=== PATIENT | female | born 1990 | race Caucasian/White ===

== ENCOUNTER 2025-09-22 05:46 | Day surgery (SDC) | payer BC, SELFPAY ==
--- NOTE | 2025-09-21 13:19 | HP.PCM.OB_ITS ---
History and Physical Date of Admission: 09/22/25 Expand All Collapse AllPre-Op History and Physical HPI: The patient is a 34 year old female presenting for pre-operative visit.She is scheduled for laparoscopic bilateral salpingectomy, for desires sterilization on 09/22/25. Procedure discussed along with risks, benefits and complications. Otheralternatives discussed for management. Consent form signed? Yes. PAST MEDICAL HISTORYPAST MEDICAL HISTORYDiagnosisDate•NEGATIVE MEDICAL HISTORY PAST SURGICAL HISTORYPAST SURGICAL HISTORYProcedureLateralityDate•APPENDECTOMY 12/30/2024•BX OF BREAST; INCISIONALRight •COLONOSCOPY 03/2025•EYE SURGERY HX •TONSILLECTOMY & ADENOIDECTOMY <AGE 11 CURRENT MEDICATIONSCurrent Outpatient Med icationsMedicationSigDispenseRefill•fexofenadine HCl (ALEENA ALLERGY PO) •magnesium oxide 400 mg magnesium tabTake 400 mg by mouth. •ZURI 28 0.15-0.03 mg per tabTake 1 tablet by mouth every 24 hours. Take active pills continuously, skip the placebo [id number] tablet4•UBRELVY 100 mg tabletTAKE 1 TABLET (100 MG) BY MOUTH IF NEEDED (MIGRAINE). •fexofenadine (ALEENA) 180 mg tabletTake 180 mg by mouth once daily. •Acetaminophen 500 mg cap •Zqbhgot-Jqmqtvpsomjlz-Egpewqhy (EXCEDRIN) 250-250-65 mg per tablet •magnesium oxide 400 mg magnesium cap •multivitamin tabletTake by mouth q 24 HR. No current facility-administered medications for this visit. ALLERGIES: Penicillins PERSONAL HISTORY: [SOCIAL HISTORY] [SOCIAL HISTORY]Social HistoryTobacco Use•Smoking status:Never•Smokeless toba account services coordinator:NeverVaping Use•Vaping status:Never UsedSubstance Use Topics•Alcohol use:Yes Comment: social•Drug use:Never FAMILY HISTORY: FAMILY HISTORYFAMILY HISTORY ProblemRelationAge of Onset•Skin CancerMot her •OsteoporosisMother •HyperlipidemiaFather •Lung CancerMaternal Grandmother •other (scleaderma)Maternal Grandmother •other (throat cancer)Maternal Grandfather •Skin CancerMaternal Grandfather •other (pacemaker)Paternal Grandmother •Heart AttackPaternal Grandfather •Breast CancerMaternal Aunt •other (endometriosis)Maternal Aunt REVIEW OF SYMPTOMS:negative except as noted above PHYSICAL EXAMINATION: VITALS: There were no vitals taken for this visit. GENERAL: The patient is well nourished, well hydrated in no acute distress. , The patient is oriented to time, place, and person.NECK: full range of motionLUNGS: Clear to auscultation bilaterally. no wheezes, rhonchi or ralesHEART: Regular rate and rhythm, Normal heart sounds, and No murmurs or gallopsGENITALIA: WET PREP: IMPRESSION: 34yo that desires sterilization PLAN: laparoscopic bilateral salpingectomy Pt has been counseled on risks/benefits and alternatives of surgery including but not limited to anesthesia, bleeding, infection, injury to pelvic structures including bowel, bladder, ureters and vessels. Pt wishes to proceed with surgery at this time. Pre and post op instructions reviewed I have reviewed and updated past medical and surgical history, medications and allergies Johanny Capone MD
[2025-09-22] VITALS (10 sets, daily range): BP systolic 98–118; BP diastolic 69–80; PULSE 67–98; RESP 16; TEMP 36.8–37.2; O2SAT 99–100; BMI 23.2
--- OUTSIDE RECORDS SUMMARY | 2025-09-22 05:48 | XMS RPT_ITS | CCD ---
Author Organization [facility] Care Team Providers Care Denture Technician Name Role Phone Christophe Marinelli Unavailable Unavailable Unavailable Unavailable Primary Care Provider Unavailabl e Unavailable Primary Care Provider Unavaillizzette e CHRISTOPHE MARINELLI Primary Care Unavailable Unavailable Primary Care Provider Unavaillizzette e Christophe Marinelli DO Primary Care Provider [phone] Debbie Mak MD Primary Care Provider RYAN CORBIN Attending Unavailable ZARRABI, DEBBIE Referring Unavailable ZARRABI, DEBBIE Primary Care Unavailable CHRISTOPHE MARINELLI Primary Care Unavailable KELLY YANG Consulting Unavailable KELLY YANG Attending Unavailable KELLY YANG Admitting Unavailable KELLY YANG Attending Unavailable OBMARYJANEHAUSERCHRISTOPHE L Primary Care Unavailable ZARRABI, DEBBIE Attending Unavailable ZARRABI, DEBBIE Primary Care Unavailable KELLY YANG Attending Unavailable OBCHRISTOPHE MONTALVO Primary Care Unavailable ZARRABI, DEBBIE Attending Unavailable ZARRABI, DEBBIE Primary Care Unavailable ZARRABI, DEBBIE Attending Unavailable ZARRABI, DEBBIE Primary Care Unavailable ZARRABI, DEBBIE Attending Unavailable ZARRABI, DEBBIE Primary Care Unavailable JOHANNY FIORE Attending Unavail able JOHANNY FIORE Attending Unavail able NeJohanny Powell Referring Unavail able Johanny Noland Attending Unavail able Zarrabi, Debbie Primary Care Unavailable Allergies Allergy Classification Reported Allergen(s) Allergy Type Date of Onset Reaction(s) Facility (7 sources) Penicillins; Translations: [Penicillins] Allergy to drug (finding) 0 Unknown [facility] (10 sources) Penicillins Drug Allergy 0 Unknown [facility] (10 sources) [facility] [place]; Translations: [[facility] [place]] Propensity to adverse reactions to drug (disorder) 3 Itching, Other, Runny nose [facility] (7 sources) Penicillins Drug Allergy 0 Unknown [facility] (1 source) Penicillins Drug allergy (disorder) 5 [facility] Repository Medications Current Medications Medication Drug Class(es) Dates Sig (Normalized) Sig (Original) acetaminophen 325 mg oral tablet (13 sources) Start: 12-30-2024 End: 01-04-2025 take 2 tablets by mouth every six hours acetaminophen (Tylenol) 325 mg tablet Indications: Acute appendicitis with localized peritonitis, without perforation, abscess, or gangrene Take 2 tablets (650 mg) by mouth every 6 hours for 20 doses. 12/30/2024 01/04/2025 Active Start: 12-30-2024 End: 12-30-2024 take 975 mg by mouth once as needed for pain 975 mg, oral, Once, On Ai 12/30/24 at 1245, For 1 dose, Preprocedure, Administer with small amount of water preoperatively., If ordered PRN for pain, nurse is permitted to administer this medication for higher pain scores based on patient preference? Yes Acetaminophen 50 0 mg cap Active Ethinyl Estradiol / Levonorgestrel (20 sources) Progestin, Estrogen, Progestin-containing Intrauterine Device Start: 08-03-2025 take 1 tablet by mouth every twenty-four hours ALEXUS 28 0.15-0.03 mg per tab Take 1 tablet by mouth every 24 hours. Take active pills continuously, skip the placebo pills 112 tablet 4 08/03/2025 Active Start: 07-02-2024 End: 08-03-2025 take 1 tablet by mouth every twenty-four hours ALEXUS 28 0.15-0.03 mg per tab Take 1 tablet by mouth every 24 hours. Take active pills continuously, skip the placebo pills 112 tablet 4 07/02/2024 08/03/2025 Discontinued Start: 07-02-2024 take 1 tablet by jessie th every twenty-four hours ALEXUS 28 0.15-0.03 mg per tab Take 1 tablet by mouth every 24 hours. Take active pills continuously, skip the placebo pills 112 tablet 4 07/02/2024 Active Start: 06-21-2024 End: 07-02-2024 take 1 tablet by mouth every twenty-four hours ALEXUS 28 0.15-0.03 mg per tab TAKE 1 TABLET BY MOUTH EVERY 24 HOURS. TAKE ACTIVE PILLS CONTINUOUSLY, SKIP THE PLACEBO PILLS 112 tablet 0 06/21/2024 07/02/2024 Discontinued Start: 06-21-2024 take 1 tablet by jessie th every twenty-four hours ALEXUS 28 0.15-0.03 mg per tab TAKE 1 TABLET BY MOUTH EVERY 24 HOURS. TAKE ACTIVE PILLS CONTINUOUSLY, SKIP THE PLACEBO PILLS 112 tablet 0 06/21/2024 Active Start: 01-16-2024 End: 06-21-2024 take 1 tablet by mouth every twenty-four hours ALEXUS 28 0.15-0.03 mg per tab Take 1 tablet by mouth every 24 hours. Take active pills continuously, skip the placebo pills 112 tablet 1 01/16/2024 06/21/2024 Discontinued Start: 01-16-2024 take 1 tablet by jessie th every twenty-four hours ALEXUS 28 0.15-0.03 mg per tab Take 1 tablet by mouth every 24 hours. Take active pills continuously, skip the placebo pills 112 tablet 1 01/16/2024 Active Start: 07-02-2023 End: 01-16-2024 take 1 tablet by mouth every twenty-four hours ALEXUS 28 0.15-0.03 mg per tab Take 1 tablet by mouth every 24 hours. Take active pills continuously, skip the placebo pills 112 tablet 1 07/02/2023 01/16/2024 Discontinued Start: 07-02-2023 take 1 tablet by jessie th every twenty-four hours ALEXUS 28 0.15-0.03 mg per tab Take 1 tablet by mouth every 24 hours. Take active pills continuously, skip the placebo pills 112 tablet 1 07/02/2023 Active Start: 02-03-2023 End: 07-02-2023 take 1 tablet by mouth every twenty-four hours ALEXUS 28 0.15-0.03 mg per tab Take 1 tablet by mouth q 24 HR. Take active pills continuously, skip the placebo pills 112 tablet 1 02/03/2023 07/02/2023 Discontinued Start: 02-03-2023 take 1 tablet by jessie th every twenty-four hours ALEXUS 28 0.15-0.03 mg per tab Take 1 tablet by mouth q 24 HR. Take active pills continuously, skip the placebo pills 112 tablet 1 02/03/2023 Active Start: 12-12-2022 End: 02-03-2023 take 1 tablet by mouth every twenty-four hours ALEXUS 28 0.15-0.03 mg per tab Take 1 tablet by mouth q 24 HR. Take active pills continuously, skip the placebo pills 112 tablet 0 12/12/2022 02/03/2023 Discontinued Start: 12-12-2022 take 1 tablet by jessie th every twenty-four hours ALEXUS 28 0.15-0.03 mg per tab Take 1 tablet by mouth q 24 HR. Take active pills continuously, skip the placebo pills 112 tablet 0 12/12/2022 Active Start: 06-25-2022 End: 12-12-2022 levonorgestrel-ethinyl estra diol (ALEXUS 28) 0.15-0.03 mg per tab Take by mouth q 24 HR. 0 06/25/2022 12/12/2022 Discontinued Start: 06-25-2022 levonorgestrel -ethinyl estradiol (ALEXUS 28) 0.15-0.03 mg per tab Take by mouth q 24 HR. 0 06/25/2022 Active take 1 tablet by mouth once bhargav y Burgin 28 0.15-0.03 mg tablet TAKE 1 TABLET BY MOUTH DAILY TAKE ACTIVE PILLS CONTINUOUSLY, SKIP THE PLACEBO PILLS Active Comment on above: Take by mouth q 24 H R. Take 1 tablet by jessie th q 24 HR. Take active pills continuously, skip the placebo pills Take 1 tablet by jessie th every 24 hours. Take active pills continuously, skip the placebo pills fexofenadine hydrochloride 180 mg oral tablet (14 sources) Histamine-1 Receptor Antagonist take 1 tablet by mouth once daily fexofenadine (Shireen) 180 mg tablet Take 1 tablet (180 mg) by mouth once daily. Active fexofenadine HCl (SIHREEN ALLERGY PO) Active Comment on above: Take 180 mg by mouth once daily. hydrocortisone 25 mg/ml topical cream (5 sources) Corticosteroid Start: End: hydrocortisone (Anusol-HC) 2.5 % rectal cream Indications: Constipation, unspecified constipation type Insert into the rectum 4 times a day as needed for hemorrhoids (rectal discomfort). Apply to affected areas 30 g 02/02/2025 02/02/2026 Active ibuprofen 600 mg oral tablet (3 sources) Nonsteroidal Anti-inflammatory Drug Start: End: take 1 tablet by mouth every six hours ibuprofen 600 mg tablet Indications: Acute appendicitis with localized peritonitis, without perforation, abscess, or gangrene Take 1 tablet (600 mg) by mouth every 6 hours for 20 doses. 12/30/2024 01/04/2025 Active End: 12-30-2024 take 1 tablet by mouth every six hours as needed ibuprofen 200 mg tablet Take 1 tablet (200 mg) by mouth every 6 hours if needed for mild pain (1 - 3). 12/30/2024 Discontinued (Stop Taking at Discharge) labetalol hydrochloride 5 mg/ml injectable solution (1 source) beta-Adrenergic Roscoe Start: 12-30-2024 5 mg, intravenous, Administer over 1 Minutes, Once as needed, systolic blood pressure greater than 180 mmHg, dystolic blood pressure greater than 100 mmHg and heart rate greater than 60 BPM, Starting on Ai 12/30/24 at 1646, For 1 dose, Recovery (only) magnesium oxide 400 mg oral tablet (19 sources) Start: 06-25-2022 take 1 tablet by mouth once daily in the evening magnesium oxide (Mag-Ox) 400 mg tablet Take 1 tablet (400 mg) by mouth once daily in the evening. 06/25/2022 Active magnesium oxide 400 mg magnesium cap Active 1 ml morphine sulfate 4 mg/ml prefilled syringe (2 sources) Opioid Agonist Start: 12-30-2024 2 mg, intraven ous, Every 5 min PRN, pain moderate (4-6), first line, Starting on Ai 12/30/24 at 1646, Recovery (only), Max total of 20 mg regardless of dose. Start: 12-30-2024 4 mg, intraven ous, Every 5 min PRN, pain severe (7-10), first line, Starting on Ai 12/30/24 at 1646, Recovery (only), Max total of 20 mg regardless of dose. multivitamin tablet (18 sources) Start: 06-25-2022 multivitamin t ablet Take by mouth q 24 HR. 06/25/2022 Active Start: 06-25-2022 take 1 tablet by jessie th once daily in the morning multivitamin tablet Take 1 tablet by mouth once daily in the morning. 06/25/2022 Active Start: 06-25-2022 multivitamin t ablet Take by mouth q 24 HR. 0 06/25/2022 Active Comment on above: Take by mouth q 24 H R. ondansetron ODT (Zofran-ODT) disintegrating tablet 4 mg (1 source) Start: take 1 tablet by mouth every eight hours as needed ondansetron ODT (Zofran-ODT) disintegrating tablet 4 mg oxyCODONE hydrochloride 5 mg oral tablet (2 sources) Opioid Agonist Start: take 1 tablet by mouth every four hours as needed 5 mg, oral, Every 4 hours PRN, pain mild (1-3), first line, Starting on Ai 12/30/24 at 1646, Recovery (only), When able to take oral medications., If ordered PRN for pain, nurse is permitted to administer this medication for higher pain scores based on patient preference? Yes Start: 12-30-2024 End: 01-06-2025 take 1 tablet by mouth every six hours in the evening for pain oxyCODONE (Roxicodone) 5 mg immediate release tablet Indications: Acute appendicitis with localized peritonitis, without perforation, abscess, or gangrene Take 1 tablet (5 mg) by mouth every 6 hours if needed for severe pain (7 - 10) for up to 12 doses. 12 tablet 12/30/2024 4:56 PM EST 12/30/2024 01/06/2025 Active piperacillin 4000 mg / tazobactam 500 mg injection (2 sources) Penicillin-class Antibacterial, beta Lactamase Inhibitor Start: 12-30-2024 take 4.5 g intravenously every six hours 4.5 g, intravenous, Administer over 0.5 Hours, Every 6 hours, First dose on Fri12/30/24 at 0600, premix bag, Dosing of this medication varies based on severity of illness. Does this patient have sepsis or concern for sepsis (probable or documented infection plus systemic manifestations of infection)? No, Suspected Indication (Select all that apply): Abdominal Infection, Type of Therapy: Definitive, No Cultures, Type of infection: Community-Acquired, Indications: Abdominal Infection Start: 12-29-2024 End: 12-29-2024 4.5 g, intravenous, Administ er over 0.5 Hours, Once, On Fri12/29/24 at 2315, For 1 dose, premix bag, Dosing of this medication varies based on severity of illness. Does this patient have sepsis or concern for sepsis (probable or documented infection plus systemic manifestations of infection)? No, Suspected Indication (Select all that apply): Abdominal Infection, Type of Therapy: Empiric, Type of infection: Community-Acquired, Indications: Abdominal Infection psyllium 400 mg oral capsule (1 source) take 1 capsule by mouth four times daily psyllium (Metamucil) 0.4 gram capsule Take 1 capsule by mouth 4 times a day. Active ubrogepant 100 mg oral tablet (12 sources) Start: 02-02-2025 End: 02-02-2025 take 1 tablet by mouth twice daily as needed ubrogepant (Ubrelvy) 100 mg tablet tablet Indications: Chronic migraine without aura without status migrainosus, not intractable Take 1 tablet (100 mg) by mouth 2 times a day as needed (migraine). 16 tablet 11 02/02/2025 Active Start: 12-14-2024 End: 02-02-2025 take 1 tablet by mouth once ubrogepant (Ubrelvy) 100 m g tablet tablet Indications: Chronic migraine with aura without status migrainosus, not intractable Take 1 tablet (100 mg) by mouth 1 time if needed (migraine) for up to 64 doses. 16 tablet 3 12/14/2024 02/02/2025 Discontinued (Reorder) Completed/Discontinued Medications Medication Drug Class(es) Dates Sig (Normalized) Sig (Original) acetaminophen 250 mg / aspirin 250 mg / caffeine 65 mg oral tablet (17 sources) Platelet Aggregation Inhibitor, Nonsteroidal Anti-inflammatory Drug, Central Nervous System Stimulant, Methylxanthine End: 05-03-2025 take 1 tablet by mouth every six hours as needed aspirin-acetamino phen-caffeine (Excedrin Migraine) 250-250-65 mg tablet Take 1 tablet by mouth every 6 hours if needed for headaches. 05/03/2025 Discontinued (Therapy completed) Aspirin-Acetamin ophen-Caffeine (EXCEDRIN) 250-250-65 mg per tablet Active amitriptyline hydrochloride 50 mg oral tablet (3 sources) Tricyclic Antidepressant Start: 11-25-2024 End: 11-25-2025 take 1 tablet by mouth once daily at bedtime amitriptyline (Elavil) 50 mg tablet Indications: Migraine without aura and without status migrainosus, not intractable Take 1 tablet (50 mg) by mouth once daily at bedtime. 30 tablet 11 11/25/2024 02/02/2025 Discontinued (Therapy completed) atogepant (Qulipta) 60 mg tablet tablet (1 source) Start: 12-15-2024 End: 12-30-2024 take 1 tablet by mouth once daily atogepant (Qulipta) 60 mg tablet tablet Indications: Chronic migraine without aura without status migrainosus, not intractable Take 1 tablet (60 mg) by mouth once daily. 30 tablet 2 12/15/2024 12/30/2024 Discontinued (Stop Taking at Discharge) calcium chloride 0.0014 meq/ml / potassium chloride 0.004 meq/ml / sodium chloride 0.103 meq/ml / sodium lactate 0.028 meq/ml injectable solution (3 sources) Start: 04-07-2025 End: 04-08-2025 take 20 mL intravenously every hour 20 mL/hr, intravenous, Continuous, Starting on [facility] 04/07/25 at 0745, For 1 day, Preprocedure Start: 12-29-2024 End: 12-31-2024 take 100 mL intravenously every hour 100 mL/hr, intravenous, Continuous, Starting on Ai 12/30/24 at 1715, For 1 day, Recovery (only) cholecalciferol 1.25 mg oral capsule (12 sources) Vitamin D Start: 06-26-2022 End: 08-03-2025 cholecalciferol, Vitamin D3, (VITAMIN D3) 1,250 mcg (50,000 unit) cap capsule 06/26/2022 08/03/2025 Discontinued Start: 06-26-2022 take 1 capsule by [facility] every week Vitamin D3 1.25 MG (82170 UT) Oral Capsule TAKE 1 CAPSULE BY MOUTH ONCE A WEEK Quantity: 12 Refills: 3 Ordered: 26-Jun-2022 Christophe Marinelli DO Start : 26-Jun-2022 Active 1 ml dexamethasone phosphate 10 mg/ml injection (1 source) Corticosteroid Start: 12-30-2024 End: 12-30-2024 8 mg, intravenous, Once, On Fri12/30/24 at 1245, For 1 dose, Preprocedure 2 ml famotidine 10 mg/ml injection (2 sources) Histamine-2 Receptor Antagonist Start: 12-30-2024 End: 12-30-2024 Starting on Fri12/30/24 at 0849, For 1 dose, Created by cabinet override Start: 12-29-2024 famotidine (Pe pcid) tablet 20 mg 1 ml fentaNYL 0.05 mg/ml injection (1 source) Opioid Agonist Start: 04-07-2025 End: 04-07-2025 intravenous, As needed, Starting on Fri04/07/25 at 0808, Intraprocedure FIBER, DEXTRIN, ORAL (2 sources) End: 06-27-2025 FIBER, DEXTRIN, ORAL Take by mouth 2 times a day. 06/27/2025 Discontinued (Med List Cleanup) FIBER, DEXTRIN, ORAL Take by mouth 2 times a day. Active 1.5 ml fremanezumab-vfrm 150 mg/ml auto-injector (1 source) Start: 12-14-2024 End: 12-30-2024 fremanezumab (Ajovy Autoinjector) 225 mg/1.5 mL auto-injector Indications: Chronic migraine without aura without status migrainosus, not intractable , Chronic migraine with aura without status migrainosus, not intractable Inject 1 Pen (225 mg) under the skin every 28 (twenty-eight) days. 1.5 mL 1 12/14/2024 12/30/2024 Discontinued (Stop Taking at Discharge) iohexol (OMNIPaque) 350 mg iodine/mL solution 68 mL (1 source) Start: 12-29-2024 End: 12-29-2024 68 mL, intravenous, Once in imaging, Starting on Fri12/29/24 at 2217, For 1 dose loratadine 10 mg oral tablet (13 sources) Start: 06-25-2022 take 1 tablet by mouth once daily Loratadine 10 MG Oral Tablet TAKE 1 TABLET BY MOUTH EVERY DAY Quantity: 90 Refills: 3 Ordered: 25-Jun-2022 Christophe Marinelli DO Start : 25-Jun-2022 Active End: 08-03-2025 loratadine 10 mg cap 025 Discontinued Magnesium (2 sources) Start: 06-25-2022 take 1 tablet by mouth in the morning Magnesium 400 MG Oral Tablet TAKE 1 TABLET IN THE MORNING Quantity: 0 Refills: 0 Ordered: 25-Jun-2022 Christophe Marinelli DO Start : 25-Jun-2022 Active 2 ml midazolam 5 mg/ml injection (2 sources) Benzodiazepine Start: 04-07-2025 End: 04-07-2025 intravenous, Administer over 5 Minutes, As needed, Starting on Ai 04/07/25 at 0810, Intraprocedure Multivitamin Oral Tablet (2 sources) Start: 06-25-2022 take 1 tablet by mouth once daily Multivitamin Oral Tablet TAKE 1 TABLET DAILY. Quantity: 90 Refills: 3 Ordered: 25-Jun-2022 Christophe Marinelli DO Start : 25-Jun-2022 Active 2 ml ondansetron 2 mg/ml injection (2 sources) Serotonin-3 Receptor Antagonist Start: 12-30-2024 End: 12-30-2024 4 mg, intravenous, Once as needed, nausea/vomiting, first line, Starting on Ai 12/30/24 at 1646, For 1 dose, Recovery (only), When administering via IV Push, administer over 3-5 minutes. Burgin-28 0.15-30 MG-MCG Oral Tablet (2 sources) Start: 06-25-2022 take 1 tablet by mouth once daily Burgin-28 0.15-30 MG-MCG Oral Tablet TAKE 1 TABLET DAILY. Quantity: 0 Refills: 0 Ordered: 25-Jun-2022 Christophe Marinelli DO Start : 25-Jun-2022 Active promethazine (Phenergan) 6.25 mg in sodium chloride 0.9% 50 mL IV (1 source) Start: 12-30-2024 End: 12-30-2024 6.25 mg, intravenous, Administer over 15 Minutes, Once as needed, Nausea/vomiting, second line, Starting on Fri12/30/24 at 1646, For 1 dose, Recovery (only) propranolol hydrochloride 10 mg oral tablet (1 source) beta-Adrenergic Roscoe Start: 12-06-2024 End: 12-30-2024 take 1 tablet by mouth twice daily propranolol (Inderal) 10 mg tablet Indications: Chronic migraine without aura without status migrainosus, not intractable Take 1 tablet (10 mg) by mouth 2 times a day. 60 tablet 1 12/06/2024 12/30/2024 Discontinued (Stop Taking at Discharge) rimegepant 75 mg disintegrating oral tablet (4 sources) Start: 10-21-2023 End: 02-02-2025 take 1 tablet by mouth every other day rimegepant (Nurtec ODT) 75 mg tablet,disintegrati ng Indications: Chronic migraine without aura without status migrainosus, not intractable Dissolve 1 tablet (75 mg) in the mouth every other day. 8 tablet 3 12/15/2024 02/02/2025 Discontinued (Cost of medication) 5 ml sodium chloride 9 mg/ml injection (2 sources) Start: 12-30-2024 End: 12-30-2024 Starting on Fri12/30/24 at 0849, For 1 dose, Created by cabinet override Start: 12-29-2024 End: 12-29-2024 1,000 mL, intravenous, at 99 9 mL/hr, Administer over 1 Hours, Once, On Fri12/29/24 at 2045, For 1 dose vitamin b6 100 mg oral table t (10 sources) Start: 06-26-2024 End: 08-03-2025 pyridoxine, vitamin B6, (VIT KEY B-6) 100 mg tablet 06/26/2024 08/03/2025 Discontinued Problems Active Problems Problem Classification Problem Date Documented Da te Episodic/Chronic Abdominal pain (2 sources) Pain in female pelvis; Translations: [Pelvic and perineal pain] Episodic Contraceptive and procreative management (8 sources) Patient encounter status; Translations: [Unspecified contraceptive management] Onset: 09-14-2025 Episodic Diseases of white blood cells (3 sources) Leukocytosis; Translations: [Elevated white blood cell count, unspecified] Onset: 02-02-2025 02-02-2025 Chronic Gastrointestinal hemorrhage (10 sources) Hematochezia; Translations: [Melena] Onset: 02-28-2025 02-28-2025 Episodic Headache; including migraine (12 sources) Migraine; Translations: [Migraine, unspecified, without mention of intractable migraine without mention of status migrainosus] Onset: 06-24-2024 06-24-2024 Chronic Hemorrhoids (3 sources) Anal skin tag; Translations: [Residual hemorrhoidal skin tags] Onset: 06-28-2025 06-28-2025 Episodic Immunizations and screening for infectious disease (2 sources) Requires vaccination; Translations: [Encounter for immunization] Onset: 08-03-2025 08-03-2025 Episodic Malaise and fatigue (3 sources) Fatigue; Translations: [Chronic fatigue, unspecified] Onset: 06-28-2025 06-28-2025 Chronic Other and unspecified benign neoplasm (3 sources) Hyperplastic polyp of intestine; Translations: [Polyp of colon] Onset: 05-03-2025 05-03-2025 Episodic Other female genital disorders (1 source) Dyspareunia; Translations: [Other specified dyspareunia] 07-02-2023 Chronic Other female genital disorders (1 source) Finding of pelvis; Translations: [Unspecified condition associated with female genital organs and menstrual cycle] Episodic Other gastrointestinal disorders (8 sources) Constipation; Translations: [Constipation, unspecified] Onset: 02-02-2025 02-02-2025 Episodic Other gastrointestinal disorders (2 sources) Other constipation; Translations: [Other constipation] Onset: 06-28-2025 Episodic Other upper respiratory disease (9 sources) Seasonal allergy; Translations: [Allergic rhinitis, cause unspecified] Onset: 06-24-2023 06-24-2023 Chronic Residual codes; unclassified (2 sources) History finding; Translations: [Other specified conditions influencing health status] Episodic Unclassified (1 source) Chronic migraine with aura, not intractable, without status migrainosus; Translations: [Chronic migraine with aura, not intractable, without status migrainosus] Onset: 02-02-2025 Unclassified (2 sources) Post-op; Translations: [Post-op] Onset: 01-14-2025 Past or Other Problems Problem Classification Problem Date Documented Da te Episodic/Chronic Appendicitis and other appendiceal conditions (11 sources) Acute appendicitis with localized peritonitis; Translations: [Acute appendicitis with localized peritonitis, without perforation or gangrene] Onset: 12-29-2024 Resolved: 02-02-2025 12-30-2024 Episodic Fluid and electrolyte disorders (3 sources) Hyponatremia; Translations: [Hypo-osmolality and hyponatremia] Onset: 02-02-2025 02-02-2025 Episodic Nutritional deficiencies (11 sources) Vitamin D deficiency; Translations: [Unspecified vitamin D deficiency] Onset: 06-24-2023 Resolved: 06-27-2025 Chronic Other and unspecified benign neoplasm (1 source) Polyp of colon; Translations: [Benign neoplasm of colon] Onset: 05-03-2025 05-03-2025 Episodic Other gastrointestinal disorders (4 sources) Constipation, unspecified; Translations: [Constipation, unspecified] Onset: 02-02-2025 Episodic Other gastrointestinal disorders (3 sources) Chronic constipation; Translations: [Other constipation] Onset: 02-02-2025 06-28-2025 Episodic Other screening for suspected conditions (not mental disorders or infectious disease) (3 sources) Cancer cervix screening status; Translations: [Encounter for screening for malignant neoplasm of cervix] Onset: 02-02-2025 Episodic Unclassified (7 sources) Onset: 06-24-2024 Resolved: 02-28-2025 06-24-2024 Unclassified (1 source) Chronic migraine with aura, not intractable, without status migrainosus; Translations: [Chronic migraine with aura, not intractable, without status migrainosus] Onset: 02-02-2025 Results Test Name Value Interpretation Reference Range Facility H AND P Exam - OB/GYN 11-0 H&P Exam - FURNACE FITTER [facility] Medical Records Department [address] [place] [address] H P Exam - FURNACE FITTER 09/21/25 1319 MR#: [id number] Acct: [id number] Name: RICHCHRISTOPHE WELLERLUIS ALBERTO Rep #: [id number] : 1990 34 From: Johanny Noland MD PCP: DEBBIE MAK Status:PRE SDC Location: SDC History and Physical Date of Admission: 09/22/25 Expand All???Collapse AllPre-Op History and Physical???HPI: The patient is a 34 year old female presenting for pre-operative visit.She is scheduled for laparoscopic bilateral salpingectomy, for desires sterilization on 09/22/25. Procedure discussed along with risks, benefits and complications. Otheralternatives discussed for management. Consent form signed? Yes. ?PAST MEDICAL HISTORYPAST MEDICAL HISTORYDiagnosisDate?? ?NEGATIVE MEDICAL HISTORY?PAST SURGICAL HISTORYPAST SURGICAL HISTORYProcedureLatera lityDate???APPENDECTOM Y???12/30/2024???BX OF BREAST; INCISIONALRight?C OLONOSCOPY???03/2025?? ?EYE SURGERY HX?TONSILLECTO MY ADENOIDECTOMY 12?CURRE NT MEDICATIONSCurrent Outpatient MedicationsMedicationS igDispenseRefill???fex ofenadine HCl (SHIREEN ALLERGY PO)?magnesi um oxide 400 mg magnesium tabTake 400 mg by mouth.?ALEXUS 28 0.15- 0.03 mg per tabTake 1 tablet by mouth every 24 hours. Take active pills continuously, skip the placebo [id number] tablet4???UBRELVY 100 mg tabletTAKE 1 TABLET (100 MG) BY MOUTH IF NEEDED (MIGRAINE).?fe xofenadine (SHIREEN) 180 mg tabletTake 180 mg by mouth once daily.?Acetami nophen 500 mg cap?Aspirin -Acetaminophen-Caffein e (EXCEDRIN) 250-250-65 mg per tablet?magn esium oxide 400 mg magnesium cap?multivi tamin tabletTake by mouth q 24 HR.?No current facility-administered medications for this visit.?ALLERGIES: Penicillins???PERSONAL HISTORY: [SOCIAL HISTORY] [SOCIAL HISTORY]Social HistoryTobacco Use???Smoking status:Never???Smokele ss tobacco:NeverVaping Use???Vaping status:Never UsedSubstance Use Topics???Alcohol use:Yes?Comment: social???Drug use:Never???FAMILY HISTORY: FAMILY HISTORYFAMILY HISTORY ProblemRelationAge of Onset???Skin CancerMother?Oste oporosisMother?Hy perlipidemiaFather?Lung CancerMaternal Grandmother?other (scleaderma)Maternal Grandmother?other (throat cancer)Maternal Grandfather?Skin CancerMaternal Grandfather?other (pacemaker)Paternal Grandmother?Heart AttackPaternal Grandfather?Breas t CancerMaternal Aunt?other (endometriosis)Materna l Aunt?REVIEW OF SYMPTOMS:negative except as noted above PHYSICAL EXAMINATION:???VITALS: There were no vitals taken for this visit.???GENERAL: The patient is well nourished, well hydrated in no acute distress. , The patient is oriented to time, place, and person.NECK: full range of motionLUNGS: Clear to auscultation bilaterally. no wheezes, rhonchi or ralesHEART: Regular rate and rhythm, Normal heart sounds, and No murmurs or gallopsGENITALIA: WET PREP: ???IMPRESSION: 34yo that desires sterilization ???PLAN: laparoscopic bilateral salpingectomy ???Pt has been counseled on risks/benefits and alternatives of surgery including but not limited to anesthesia, bleeding, infection, injury to pelvic structures including bowel, bladder, ureters and vessels. Pt wishes to proceed with surgery at this time.???Pre and post op instructions reviewed?I have reviewed and updated past medical and surgical history, medications and allergies Johanny Gupta MD ???8:32 AM 09/21/25 1319 Cosigner Signature (if applicable): CC: Dr Johanny Noland MD; DEBBIE MAK Signed [facility] 09-14-2025 [facility] Office Visit (OBGYWM ) CHRISTOPHE RICH ([id number]) 1990 F Date Time Provider Department 09/14/25 8:10 AM JOHANNY FIORE OBGYWM During your visit today, we recorded the following information about you: Blood pressure Weight 110/62 68 kg Johanny Fiore MD 09/14/2025 8:32 AM Signed Pre-Op History and Physical HPI: The patient is a 34 year old female presenting for pre-operative visit. She is scheduled for laparoscopic bilateral salpingectomy, for desires sterilization on 09/22/25. Procedure discussed along with risks, benefits and complications. Other alternatives discussed for management. Consent form signed? Yes. PAST MEDICAL HISTORY Diagnosis Date NEGATIVE MEDICAL HISTORY PAST SURGICAL HISTORY Procedure Laterality Date APPENDECTOMY 12/30/2024 BX OF BREAST; INCISIONAL Right COLONOSCOPY 03/2025 EYE SURGERY HX TONSILLECTOMY AND ADENOIDECTOMY Current Outpatient Medications Medication Sig Dispense Refill fexofenadine HCl (SHIREEN ALLERGY PO) magnesium oxide 400 mg magnesium tab Take 400 mg by mouth. ALEXUS 28 0.15-0.03 mg per tab Take 1 tablet by mouth every 24 hours. Take active pills continuously, skip the placebo pills 112 tablet 4 UBRELVY 100 mg tablet TAKE 1 TABLET (100 MG) BY MOUTH IF NEEDED (MIGRAINE). fexofenadine (SHIREEN) 180 mg tablet Take 180 mg by mouth once daily. Acetaminophen 500 mg cap Aspirin-Acetaminophen- Caffeine (EXCEDRIN) 250-250-65 mg per tablet magnesium oxide 400 mg magnesium cap multivitamin tablet Take by mouth q 24 HR. No current facility-administered medications for this visit. ALLERGIES: Penicillins PERSONAL HISTORY: SOCIAL HISTORY[1] FAMILY HISTORY: FAMILY HISTORY Problem Relation Age of Onset Skin Cancer Mother Osteoporosis Mother Hyperlipidemia Father Lung Cancer Maternal Grandmother other (scleaderma) Maternal Grandmother other (throat cancer) Maternal Grandfather Skin Cancer Maternal Grandfather other (pacemaker) Paternal Grandmother Heart Attack Paternal Grandfather Breast Cancer Maternal Aunt other (endometriosis) Maternal Aunt REVIEW OF SYMPTOMS: negative except as noted above PHYSICAL EXAMINATION: VITALS: There were no vitals taken for this visit. GENERAL: The patient is well nourished, well hydrated in no acute distress. , The patient is oriented to time, place, and person. NECK: full range of motion LUNGS: Clear to auscultation bilaterally. no wheezes, rhonchi or rales HEART: Regular rate and rhythm, Normal heart sounds, and No murmurs or gallops GENITALIA: WET PREP: IMPRESSION: 34yo that desires sterilization PLAN: laparoscopic bilateral salpingectomy Pt has been counseled on risks/benefits and alternatives of surgery including but not limited to anesthesia, bleeding, infection, injury to pelvic structures including bowel, bladder, ureters and vessels. Pt wishes to proceed with surgery at this time. Pre and post op instructions reviewed I have reviewed and updated past medical and surgical history, medications and allergies Johanny Gupta MD [1] Social History Tobacco Use Smoking status: Never Smokeless tobacco: Never Vaping Use Vaping status: Never Used Substance Use Topics Alcohol use: Yes Comment: social Drug use: Never Allergies As of Date: 09/14/2025 Noted Allergy Reaction PENICILLINS 07/02/2022 16 - Unknown Date Reviewed: 09/14/2025 Reviewed by: Nikunj Ji MA - Fully Assessed Reason for Visit: Pre-Op Visit [1235] Primary Visit Diagnosis:Consultation for sterilization [Z30.09] Other Visit Diagnosis:Pre-op exam [Z01.818] Prescriptions as of 09/14/2025 - fexofenadine HCl (SHIREEN ALLERGY PO) - magnesium oxide 400 mg magnesium tab Take 400 mg by mouth. - ALEXUS 28 0.15-0.03 mg per tab Take 1 tablet by mouth every 24 hours. Take active pills continuously, skip the placebo pills - UBRELVY 100 mg tablet TAKE 1 TABLET (100 MG) BY MOUTH IF NEEDED (MIGRAINE). - fexofenadine (SHIREEN) 180 mg tablet Take 180 mg by mouth once daily. - magnesium oxide 400 mg magnesium cap - multivitamin tablet Take by mouth q 24 HR. Problem List As Of Date: 09/14/2025 (None) Medications Discontinued During This Encounter Prescriptions - Aspirin-Acetaminophen- Caffeine (EXCEDRIN) 250-250-65 mg per tablet (Discontinued) - Acetaminophen 500 mg cap (Discontinued) Encounter Status:[facility]A [facility] 09[facility] CHRISTOP[facility] ([id number]) 1990 F Date Time Provider Department 09/14/25 JOHANNY FIORE OBGYWM During your visit today, we recorded the following information about you: Marina Bishop RN 09/14/2025 8:34 AM Addendum Filled out [facility] packet and placed in Dr. Gupta's in box to get signature. Kate Rosa MA Received [facility] paperwork for after her surgery on 09/22/25. Placed in [facility] mailbox. JIN Luz Tara, RN 09/14/2025 5:02 PM Signed Faxed. Leo Ramey RN Allergies As of Date: 09/14/2025 Noted Allergy Reaction PENICILLINS 07/02/2022 16 - Unknown Date Reviewed: 09/14/2025 Reviewed by: Nikunj Ji MA - Fully Assessed Reason for Visit: [facility] Paperwork [4185] Prescriptions as of 09/14/2025 - fexofenadine HCl (SHIREEN ALLERGY PO) - magnesium oxide 400 mg magnesium tab Take 400 mg by mouth. - ALEXUS 28 0.15-0.03 mg per tab Take 1 tablet by mouth every 24 hours. Take active pills continuously, skip the placebo pills - UBRELVY 100 mg tablet TAKE 1 TABLET (100 MG) BY MOUTH IF NEEDED (MIGRAINE). - fexofenadine (SHIREEN) 180 mg tablet Take 180 mg by mouth once daily. - magnesium oxide 400 mg magnesium cap - multivitamin tablet Take by mouth q 24 HR. Problem List As Of Date: 09/14/2025 (None) Encounter Status:Closed by LEO RAMEY on 09/14/25 Normal [facility] HISTORY PHYSICALon HISTORY PHYSICAL HNO ID: [id number] Author: JOHANNY FIORE MD Service: ? Author Type: Physician Type: H&P Filed: 09/14/2025 08:32 Note Text: Pre-Op History and Physical HPI: The patient is a 34 year old female presenting for pre-operative visit. She is scheduled for laparoscopic bilateral salpingectomy, for desires sterilization on 09/22/25. Procedure discussed along with risks, benefits and complications. Other alternatives discussed for management. Consent form signed? Yes. PAST MEDICAL HISTORY Diagnosis Date NEGATIVE MEDICAL HISTORY PAST SURGICAL HISTORY Procedure Laterality Date APPENDECTOMY 12/30/2024 BX OF BREAST; INCISIONAL Right COLONOSCOPY 03/2025 EYE SURGERY HX TONSILLECTOMY AND ADENOIDECTOMY Current Outpatient Medications Medication Sig Dispense Refill fexofenadine HCl (SHIREEN ALLERGY PO) magnesium oxide 400 mg magnesium tab Take 400 mg by mouth. ALEXUS 28 0.15-0.03 mg per tab Take 1 tablet by mouth every 24 hours. Take active pills continuously, skip the placebo pills 112 tablet 4 UBRELVY 100 mg tablet TAKE 1 TABLET (100 MG) BY MOUTH IF NEEDED (MIGRAINE). fexofenadine (SHIREEN) 180 mg tablet Take 180 mg by mouth once daily. Acetaminophen 500 mg cap Aspirin-Acetaminophen- Caffeine (EXCEDRIN) 250-250-65 mg per tablet magnesium oxide 400 mg magnesium cap multivitamin tablet Take by mouth q 24 HR. No current facility-administered medications for this visit. ALLERGIES: Penicillins PERSONAL HISTORY: SOCIAL HISTORY[1] FAMILY HISTORY: FAMILY HISTORY Problem Relation Age of Onset Skin Cancer Mother Osteoporosis Mother Hyperlipidemia Father Lung Cancer Maternal Grandmother other (scleaderma) Maternal Grandmother other (throat cancer) Maternal Grandfather Skin Cancer Maternal Grandfather other (pacemaker) Paternal Grandmother Heart Attack Paternal Grandfather Breast Cancer Maternal Aunt other (endometriosis) Maternal Aunt REVIEW OF SYMPTOMS: negative except as noted above PHYSICAL EXAMINATION: VITALS: There were no vitals taken for this visit. GENERAL: The patient is well nourished, well hydrated in no acute distress. , The patient is oriented to time, place, and person. NECK: full range of motion LUNGS: Clear to auscultation bilaterally. no wheezes, rhonchi or rales HEART: Regular rate and rhythm, Normal heart sounds, and No murmurs or gallops GENITALIA: WET PREP: IMPRESSION: 34yo that desires sterilization PLAN: laparoscopic bilateral salpingectomy Pt has been counseled on risks/benefits and alternatives of surgery including but not limited to anesthesia, bleeding, infection, injury to pelvic structures including bowel, bladder, ureters and vessels. Pt wishes to proceed with surgery at this time. Pre and post op instructions reviewed I have reviewed and updated past medical and surgical history, medications and allergies Johanny Gupta MD [1] Social History Tobacco Use Smoking status: Never Smokeless tobacco: Never Vaping Use Vaping status: Never Used Substance Use Topics Alcohol use: Yes Comment: social Drug use: Never Normal [facility] CNOVon 08-03-2025 CNOV Office Visit (OBGYWM ) RICH,MEGAN P ([id number]) 1990 F Date Time Provider Department 08/03/25 11:20 AM JOHANNY FIORE OBGYWM During your visit today, we recorded the following information about you: Blood pressure Weight Height 110/70 68.5 kg 1.715 m Johanny Fiore MD 08/03/2025 12:00 PM Signed Supervisor Assembling offered: Patient declines. Christophe is a 34 year old who presents for an annual gynecologic exam without complaints. 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 LMP: LMP Unknown, Drug Induced Amenorrhea Age at Menarche: 11 Age at First : Age at Menopause: Keyboard Operator History Comments: Sexual Activity: Yes; Male Contraception: Pill PAST MEDICAL HISTORY Diagnosis Date NEGATIVE MEDICAL HISTORY PAST SURGICAL HISTORY Procedure Laterality Date APPENDECTOMY 12/30/2024 BX OF BREAST; INCISIONAL Right COLONOSCOPY 03/2025 EYE SURGERY HX TONSILLECTOMY AND ADENOIDECTOMY FAMILY HISTORY Problem Relation Age of Onset Skin Cancer Mother Osteoporosis Mother Hyperlipidemia Father Lung Cancer Maternal Grandmother other (scleaderma) Maternal Grandmother other (throat cancer) Maternal Grandfather Skin Cancer Maternal Grandfather other (pacemaker) Paternal Grandmother Heart Attack Paternal Grandfather Breast Cancer Maternal Aunt other (endometriosis) Maternal Aunt SOCIAL HISTORY Social History Tobacco Use Smoking status: Never Smokeless tobacco: Never Vaping Use Vaping status: Never Used Substance Use Topics Alcohol use: Yes Comment: social Drug use: Never REVIEW OF SYSTEMS Abdomen: No abdominal pain, nausea, vomiting, diarrhea, or constipation. No bloating, early satiety, indigestion, or increased flatulence. Bladder: No dysuria, gross hematuria, urinary frequency, urinary urgency, or incontinence. Breast: No breast lumps, nipple d/c, overlying skin changes, redness or skin retraction. Allergies and current medication updated:Yes SENSITIVE EXAM: The sensitive examination was discussed with the Patient or Patient's Authorized Flight Attendant/Inflight Manager. As applicable, any other physician, advance practice provider, medical student, or other health professional student that will be observing or involved in the sensitive examination for educational or training purposes was discussed with the Patient or Authorized Flight Attendant/Inflight Manager. The Patient or Authorized Flight Attendant/Inflight Manager has agreed to proceed with the sensitive examination. (Sensitive examination includes inspection and/or palpation of the breasts, pelvis, prostate and anorectal regions). EXAM: BP 110/70 Ht 5' 7.5" (1.72m) Wt 151 lb (68.5kg) BMI 23.29 kg/(m2). GENERAL: pleasant, female in no apparent distress HEENT: Normocephalic, atraumatic, mucus membranes moist, and no lesions NECK: Supple, full range of motion, no adenopathy, and thyroid normal DERMATOLOGY: Normal, without lesions, non-icteric, and non-hirsute BREAST: soft, non-tender, symmetric, no dominant mass, normal nipple-areolar complex, no lymphadenopathy, and no nipple discharge CHEST: Normal inspiratory effort ABDOMEN: soft, non-tender, and no masses PELVIC: external genitalia normal, normal Bartholin's glands, urethra, [place]'s glands, no vulvar lesions, no cervical lesions, good vaginal support, physiologic discharge present, normal appearing perineal body and perianal region BIMANUAL: uterus normal size, shape and consistency, no adnexal masses, and non-tender RECTOVAGINAL: deferred. NEURO: alert and oriented x3,exam grossly non-focal EXTREMITIES: normal ASSESSMENT/PLAN: 1) Health maintenance: Pap/HPV up to date. Mammogram starting age 40. Nutrition, exercise and routine health maintenance exams reviewed. Colon cancer screening: up to date with screening, routine at 44 HPV vaccine: ordered today 2) Contraception: combined hormonal contraceptives. Contraceptive options reviewed and information provided.considering salpingectomy - will notify office. 3) STD screening: Declined STI check. 4) Follow up one year or sooner as needed MD Garrison Frazier [place] 08/03/2025 12:00 PM Signed Patient identified by name and date of . Christophe Rich is here for her HPV 9 vaccination, injection # one of the series. Patient ?No Gardasil injection was given without incident. See immunizations for details of immunizations administered today. VIS sheet provided: Yes Patient advised to follow up in 2 months (more content not included)... Normal [facility] TSH W/REFLEX TO FT4on 2024 TSH W/REFLEX TO FT4 1.36 mIU/L Normal [facility] Comment on above: Order Comment: FASTI NG:NO FASTING: NO Result Comment: Refe rence Range > or = 20 Years 0.40-4.50 Ranges First trimester 0.26-2.66 Second trimester 0.55-2.73 Third trimester 0.43-2.91 Performed By: #### 1 [id number] #### [facility] [address], [address] [place] [address] Head Of Advertising: Norbert Choudhary MD Surgical pathology studyOrde red By: Syd Humphries on 04-29-2025 Laboratory comment Bryson (Report) u4tgiGBhMEFgi1zjWBHzxA FuZzEwMzNcZnRuYmpcdWMx PHwhkvItHQjkf0ZbK9KiVw AwMFxhbnNpXGRlZmxhbmcx XCNnIYR4neMsTISjFVqmPE GoDYjoKb3hkAVnbEbdCsVm YVBec8xwfxNHBCjwGZFUPU g8v8boTEFiZaK6sDWdKWni M8yohjAwvKCwS7Ojg8JnAJ z0pU17ZEDxtH3zwGLkBIen wbHfGgY5PDdmYXHgDcB4YF CvuUTtBFFiH1irQHUnYLhm COVwRVrfmDQvEDP9uLzmf6 A8uYXgvVLmuIdwYgRhPmOf IuFFv9TgKTa5xFagV4NvYM DyDuH8tOVbTZWeVYxuNVHn AEIaqoL1gV39NOdutzH8iR Afp4Bkk15uq346aS1ljVYj PII9ZPPbJRZshDHaMALgPY G4NACoySBxB7xbZtRosWWw W4IuWlRutUBiV2XjUyLcmB MyY8QpOvOcjNDgMSObiNN7 CWfqi502THU6AjViZA7oY3 Tmr0Y8bY3jdGUpUTIkdWGz UdLcYKEyfr2gqHHaPHaqp4 ZsZES5auZ8mYQiaGVtEEUu QK05Tbqlj4WdLsemYZV0ZT GbfzYsj2Lpo1vvGpNngtXf W7ujE6PzAPVpAEKlOFHeWu BglvGhr2Fns6TwuMPbdYl4 p9gzRUErNQVfxPhcg8szUC F8LKWfA2P4uSJbx0qbEGcy KURajHV5yjH6EZmgICOxqc J3fzM8LVfbCREifVF7nsL3 CGrzPRJwPlB7liA8ENgyCE FyLAL8ZsZgWGLbr8Ugggtb BqClc7PolEQsNMteS32db3 21PSUpxsWjT2cuxKHhkyfy lNHaocliKJnncaC8RCVgWL BsYWluXGYxXGZzMjBcbGFu ZzEwMzNcaGljaFxmMVxkYm DhSAPbCVldI1ohNtYhWlXn WYAReQP0gIBnc8unmbQ5cF CySY9nVEQokFJizwBwi0H3 CDF5vTBwtK4twDUfGAKcoN DxugAhsj17iAZjhBA9ABAz EZDbkGWoaH5pZEXoXJVLjC 5hbCBJbnRlcnByZXRhdGlv bi4LeUYeob2ioEQqQ7IyrC lmaWVzIHRoYXQgdGhleSBo LLEfKEOsexnoy0SnRMTwkW HnD0GsBE9uBAWdwf10 [facility] Work Phone: Pathology report Cancer Narrative Surgical Pathology Case: [id number] Authorizing Provider: Ryan Corbin MD Collected: 04/07/2025 0814 Ordering Location: [facility] Received: 04/07/2025 1546 Center OR Pathologist: Syd Humphries MD Specimens: A) - ASCENDING COLON POLYP B) - COLON - TRANSVERSE POLYP, TRANSVERSE COLON POLYP [facility] Work Phone: Pathology report comments [Interpretation] Narrative x4pgyWMmRDIfvAFmACXmLT gdjaAkHHYpgQYnA1Wgfnko BVpsAW0hYG9wpTmgnGThqT VrTWXbBoDeo9xtx824oPYn a4jfZPTRuyrbuCr8oBfoE7 8dv4I4JqmmZ70ytNXwHCB4 ZCSzHEXrcSAnLBHfIKA1BB SdnZWbD8brRXEaPN5qwtfj CIeiUYexZFUhwGZ6TWUqdU NpE0YrQBTeMZozPYUpvmy8 RjVqAr9bjKUxxPahSCiqRY JkXHBsYWluXGZzMjAgUGFy dHMgQSBhbmQgQjogTXVsdG bbrNVnUZBlwZVeLDTwf2Q4 PXOfUSI3gW9gghH5YYQkTI L1CJ8rteSmLtqkKQLkjWUy fQ== [facility] Work Phone: Pathology report final diagnosis Narrative g9gftZNkXFWmaMPtSIJbXB zlciQkLUVanTUdB5Svkqcx HIchZO5oKW1faDzacZDomD LiFAHtYbFno7lrd598rZUj i3npXYSTkzklhGz5tZflT7 5iy9K7YbfyM2faNINzIOkd UTQdVQkfyCJvJKv2CRJxdP VydzEyMjQwXHBhcGVyaDE1 LDDuEM7ijnxuWCakOLmoXH ErxgE3UHPcqCFhQ3DfXPPe GC2awymlBVG5RBqbKBOsLZ Y9KnTjWKGfi0Mkslt6GiRm yFk9w1uxUBUtLHTkcThhx5 beRLI0CSObaYYcK0mlqA7r BOQvRE0pnaeok7waMBymTQ xgBTAveCY8jkY5TQEhrNZs V5FglU0tWLIfVYGlawPypQ ctnC1hYcvuraAnKETlHPEP N0NXVIePNfLSF3uHWbvdOR 2OQNLdESFKDGlBAPJQP59Z SrwkHKUnPjLqAJFId4x9iM 6oEKBfr1hhxnyyJW32M22b KVJ8rLQfLM0lKGHhI48zYr oyBO22YWPdmd4zsQSykJP1 VCaxOZCxK43ngJPwaQstTQ EcyhBsSJ3kK8P4eHWvQXVj ciBkeXNwbGFzaWEuXHBhcl qjHKVpHxRSRxWMDvFRC4ZP ZvJLVYLCRR1FGZOBC8aTVB swMJ4NFYGAE1GBHBu2GKVb faoxCREbZZd8iCMtsWlda0 DzTmBrn1w7lFEvi0NrVYGt bT3ueiQsGlthKSFezWSrPD xjZjFccGFyfQ== [facility] Work Phone: Pathology report gross observation Narrative n0typAYyGVJjwRDQHLImCE NyED1tmJuyeMa4tIpgMOPd qsR0xLQsNBqqk8brDLI0z1 jxocYBMfbcKYJfEJ7aVFwg OFYaJY4xTxUqZTIuIvYmVM BhcGVydzEyMjQwXHBhcGVy vWI7JLSlAO2trjmcXBhhPO coCXPfcbQ2SIDreNHcG7Gt LRDbTD9lgbpvDPH4AGNTNw ruOy3ieTYhmNPXSiwdCuKw UmLtZWYqSYSlSHPmr9vqxl KVHWeoRXBXKFk9NLr7AHIy ZOStuTXjp0C1PAifg8tai0 KuVWQuNWu8gQ9LXfzwNGL4 MWKRRsyhWgayxUjjb6XgqZ BcXHNnIFxcaWQgNTEwMDAg XFxkYiBPVlIgIiAyODIyMj QsIgGoXSa1BXmeGrDZJKE3 DvCaRARjQLr5TNqaUNdnqN BcXHQgMSBcXGZsIFxcbmN9 y1poEFVnvTJgGKM5TOwca0 pkWRvcRIA6ZADgYvAkOIMp BS3PEwKsZPW5AkKhEmSmUa Y5WUj7EPEVUaHtKqTlUsY0 FcLyPbEkFFk0ZWi0TTxLGr MuGKX7VxQfJUagXIM2RGb7 SOfmeenxDTf4UYOkCFekvh HpLPzaThycYKaoG95dfVCp ZCANClxwbGFpblxlcGljTm VzdERvYzEgDQpcbHRycGFy EI7PKUf8spEaSMCdUFEcPe HzDKsyKkUtOSf6YDSgvP5n Vo2fvSXelT1qWAneTyLgIN Itt9p5rXN2nPKdkYV9zTMc jSqiQF3vqHLtWS2oXAfkv6 SenOUfLL73nFOduzGjdbDq PnGsY7CjLFtvLbEgw6jbbc Jlm6x6pCAbASqgEX3yGOYi rPcvvSF1RH5btA4mfBInxT IiUVDdApSduElkf1BdVTSj UYrlIW00MB4eGJY7gndxGz AwLjMgeCAwLjIgeCAwLjIg I93iVVSpOBXqkWLgbX3ehj DxxvVukZHljLX7BYQmwD6r iY40mpBuceOfxrQmJ9Dmh9 V2vGPoSKDqyuFNXgnsRVPs QJLmyALRh0MkSHFGLpyUAG 6VQJBfyLYSRGH3RL2rVMqa AATkJ2JhR2RaxlS5BXAygx USLuqfPrvjfLkrg7JkxQFk XHNnIFxcaWQgNTEwMDIgXF xkYiBPVlIgIiAyODIyMjIx YiWdYOl6QWcvL4WZSFWuDA ZaTWZqJTWaTjW7XXk2NBTT Dl5uGNR0UDUfMSI7TRI9MR P2ZDAqGX7qTVnurORuWKrc r2CjOxFzDSIhLUcrjuK2WV UdbfIkQCxosJtduO8yVOYp I74cj4ONa6JtVO4CGNv1dr BhclxzYjEzNVxlcGljWHNi JFX1CA7AIBn9knIhIBOlOY YoZzLsZzxiEcYyWUu6RWWx wF7hAl2jeUOihV0rJCtfDb QlUFExz3w7vUD3sQYslAN7 gQGqvLwmBP4gvHKaON8mAX zns7MwkIBrZO05aVBztdCl rpSsEwWiAJ6vseLqh3ShH3 9pt42ifT1qyOZtIZIkghJd bmUgbGlnaHQgdGFuIHBvbH tvc3hpGEOwr0Y9CUKzc5K9 ZSBmcmFnbWVudCBtZWFzdX LmskwqLX7yZKhzHL6cDDuu PW5bUWCoJbPJiPPmc4FwB0 tjMM7rjUTij5KugEv9fERo EUkgZVFwfQ3xdN9fm83lOX Cta8UpuGIzVqnnCEAhFXvz qBZnSNqceSHbNSBek5SrGS xlcGljWHNhMzAgDQpMTVAN SbxtwOrdVzZgjZXeZtO5IZ TrvRSeSTV2DP4cqMmuYKDy D3CjJ3HgzpZ8KBSauqOQOs wzQNWnHQ4KRMTnVQipUP9M fQ== [facility] Work Phone: [facility] Work Phone: COLONOSCOPYon 04-07-2025 Colonoscopy Table formatting fro m the original result was not included. Impression 2 polyps were removed with hot forceps biopsy Findings One sessile and benign-appearing polyp measuring 5-9 mm in the ascending colon; no bleeding was observed; performed hot forceps biopsy with complete en bloc removal One sessile and benign-appearing polyp measuring 5-9 mm in the transverse colon; performed hot forceps biopsy with complete en bloc removal Recommendation Await pathology results Follow up with PCP Repeat colonoscopy in 5 years, due: 04/06/2030 Indication Blood in stool, Constipation, unspecified constipation type Post-Op Diagnosis None Staff Staff Role No Staff Documented Medications fentaNYL PF (Sublimaze) injection 25 mcg midazolam PF (Versed) injection 5 mg (Totals for administrations occurring from 0803 to 0823 on 04/07/25) Preprocedure A history and physical has been performed, and patient medication allergies have been reviewed. The patient's tolerance of previous anesthesia has been reviewed. The risks and benefits of the procedure and the sedation options and risks were discussed with the patient. All questions were answered and informed consent obtained. Details of the Procedure The patient underwent moderate sedation, which was administered by a sedation nurse and the procedural nurse. The patient's blood pressure, ECG, ETCO2, heart rate, respirations, oxygen and level of consciousness were monitored throughout the procedure. A digital rectal exam was performed. The scope was introduced through the anus and advanced to the cecum. Retroflexion was performed in the rectum. Bowel prep was adequate. The patient experienced no blood loss. The procedure was not difficult. The patient tolerated the procedure well. There were no apparent adverse events. Events Procedure Events Event Event Time ENDO SCOPE IN TIME 04/07/2025 8:10 AM ENDO CECUM REACHED 04/07/2025 8:15 AM ENDO SCOPE OUT TIME 04/07/2025 8:22 AM Specimens ID Type Source Tests Collected by Time 1 : ASCENDING COLON POLYP Tissue ASCENDING COLON POLYP SURGICAL PATHOLOGY EXAM Winter Borrego MA 04/07/2025 0814 2 : TRANSVERSE COLON POLYP Tissue COLON - TRANSVERSE POLYP SURGICAL PATHOLOGY EXAM Winter Borrego MA 04/07/2025 0817 Procedure Location [facility] OR [address] [place] [phone] Referring Provider Debbie Mak MD Procedure Provider Ryan Corbin MD [facility] Comment on above: Order Comment: Colonoscopy studyon 04-07-20 Table formatting fro m the original result was not included. Impression 2 polyps were removed with hot forceps biopsy Findings One sessile and benign-appearing polyp measuring 5-9 mm in the ascending colon; no bleeding was observed; performed hot forceps biopsy with complete en bloc removal One sessile and benign-appearing polyp measuring 5-9 mm in the transverse colon; performed hot forceps biopsy with complete en bloc removal Recommendation Await pathology results Follow up with PCP Repeat colonoscopy in 5 years, due: 04/06/2030 Indication Blood in stool, Constipation, unspecified constipation type Post-Op Diagnosis None Staff Staff Role No Staff Documented Medications fentaNYL PF (Sublimaze) injection 25 mcg midazolam PF (Versed) injection 5 mg (Totals for administrations occurring from 0803 to 0823 on 04/07/25) Preprocedure A history and physical has been performed, and patient medication allergies have been reviewed. The patient's tolerance of previous anesthesia has been reviewed. The risks and benefits of the procedure and the sedation options and risks were discussed with the patient. All questions were answered and informed consent obtained. Details of the Procedure The patient underwent moderate sedation, which was administered by a sedation nurse and the procedural nurse. The patient's blood pressure, ECG, ETCO2, heart rate, respirations, oxygen and level of consciousness were monitored throughout the procedure. A digital rectal exam was performed. The scope was introduced through the anus and advanced to the cecum. Retroflexion was performed in the rectum. Bowel prep was adequate. The patient experienced no blood loss. The procedure was not difficult. The patient tolerated the procedure well. There were no apparent adverse events. Events Procedure Events Event Event Time ENDO SCOPE IN TIME 04/07/2025 8:10 AM ENDO CECUM REACHED 04/07/2025 8:15 AM ENDO SCOPE OUT TIME 04/07/2025 8:22 AM Specimens ID Type Source Tests Collected by Time 1 : ASCENDING COLON POLYP Tissue ASCENDING COLON POLYP SURGICAL PATHOLOGY EXAM Winter Borrego MA 04/07/2025 0814 2 : TRANSVERSE COLON POLYP Tissue COLON - TRANSVERSE POLYP SURGICAL PATHOLOGY EXAM Winter Borrego MA 04/07/2025 0817 Procedure Location [facility] OR [address] [place] [phone] Referring Provider Debbie Mak MD Procedure Provider Ryan Corbin MD IMAGING [facility] Work Phone: Radiology Study observation (narrative) [facility] Work Phone: Surgical pathology studyon 0 04-07-2025 Surgical pathology study Pathology report.total SEE COMMENT Surgical Pathology Case: [id number] Authorizing Provider: Ryan Corbin MD Collected: 04/07/2025 0814 Ordering Location: [facility] Received: 04/07/2025 1546 Center [place] Pathologist: Syd Humphries MD Specimens: A) - ASCENDING COLON POLYP B) - COLON - TRANSVERSE POLYP, TRANSVERSE COLON POLYP Path report.final diagnosis SEE COMMENT A. ASCENDING COLON, POLYP, POLYPECTOMY: - Polypoid colonic mucosa with no significant abnormality (see comment). - Negative for dysplasia. B. TRANSVERSE COLON, POLYP, POLYPECTOMY: - Hyperplastic polyp (see comment). at 1311 EDT Laboratory comment By the signature on this report, the individual or group listed as making the Final Interpretation/Diagnos is certifies that they have reviewed this case. Path report.comments Parts A and B: Multiple deeper tissue sections were examined. Path report.gross observation SEE COMMENT A: Received in formalin, labeled with the patient's name and hospital number and ascending colon polyp", is one light momin polypoid, soft tissue fragment measuring 0.3 x 0.2 x 0.2 cm. The specimen is submitted in toto in one cassette. LMP B: Received in formalin, labeled with the patient's name and hospital number and transverse colon polyp", is one light momin polypoid, soft tissue fragment measuring 0.3 x 0.2 x 0.2 cm. The specimen is submitted in toto in one cassette. LMP Normal [facility] CBC (INCLUDES DIFF/PLT)on Basophils (Bld) [#/Vol] 0.019 10*3/uL Normal 0-200 [facility] Comment on above: Performed By: #### 9 3871, 4532, 6695 #### [facility] [address] [place] [address], [address] [place] [address] Head Of Advertising: Norbert Choudhary MD Basophils/100 WBC (Bld) 0.4 % Normal [facility] Comment on above: Performed By: #### 9 3744, 6399, 7600 #### [facility] of [address], [address] [place] [address] Head Of Advertising: Norbert Choudhary MD Eosinophils (Bld) [#/Vol] 0 10*3/uL Low 15-500 [facility] Comment on above: Performed By: #### 9 314, 6399, 7600 #### [facility] of [address], [address] [place] [address] Head Of Advertising: Norbert Choudhary MD Eosinophils/100 WBC (Bld) 0.0 % Normal [facility] Comment on above: Performed By: #### 9 089, 63, 7600 #### [facility] of [place] [address] Head Of Advertising: Norbert Choudhary MD Erythrocyte distribution width (RBC) [Ratio] 11.3 % Normal 11.0-15.0 [facility] Comment on above: Performed By: #### 9 970, 63, 7600 #### [facility] of [address], [address] [place] [address] Head Of Advertising: Norbert Choudhary MD Hematocrit (Bld) [Volume fraction] 44.4 % Normal 35.0-45.0 [facility] Comment on above: Performed By: #### 9 840, 6399, 7600 #### [facility] of [place] [address] Head Of Advertising: Norbert Choudhary MD Hemoglobin (Bld) [Mass/Vol] 15.0 g/dL Normal 11.7-15.5 [facility] Comment on above: Performed By: #### 9 437, 6399, 7600 #### [facility] of [place] [address] Head Of Advertising: Norbert Choudhary MD Lymphocytes (Bld) [#/Vol] 2.083 10*3/uL Normal 850-3900 [facility] Comment on above: Performed By: #### 9 918, 6399, 7600 #### [facility] of [address] [place] [address] Head Of Advertising: Norbert Choudhary MD Lymphocytes/100 WBC (Bld) 43.4 % Normal [facility] Comment on above: Performed By: #### 9 059, 63, 7600 #### [facility] [place] [address] Head Of Advertising: Norbert Choudhary MD MCH (RBC) [Entitic mass] 31.7 pg Normal 27.0-33.0 [facility] Comment on above: Performed By: #### 9 363, 63, 7600 #### [facility] of [place] [address] Head Of Advertising: Norbert Choudhary MD MCHC (RBC) [Mass/Vol] 33.8 g/dL Normal 32.0-36.0 [facility] Comment on above: Result Comment: For adults, a slight decrease in the calculated MCHC value (in the range of 30 to 32 g/dL) is most likely not clinically significant; however, it should be interpreted with caution in correlation with other red cell parameters and the patient's clinical condition. Performed By: #### 9 649, 57, 7600 #### [facility] [place] [address] Head Of Advertising: Norbert Choudhary MD MCV (RBC) [Entitic vol] 93.9 fL Normal 80.0-100.0 [facility] Comment on above: Performed By: #### 9 876, 50, 7600 #### [facility] [place] [address] Head Of Advertising: Norbert Choudhary MD Monocytes (Bld) [#/Vol] 0.25 10*3/uL Normal 200-950 [facility] Comment on above: Performed By: #### 9 525, 6399, 7600 #### [facility] [place] [address] Head Of Advertising: Norbert Choudhary MD Monocytes/100 WBC (Bld) 5.2 % Normal [facility] Comment on above: Performed By: #### 9 2665, 63, 7600 #### [facility] of [address], [address] [place] [address] Head Of Advertising: Norbert Choudhary MD Neutrophils (Bld) [#/Vol] 2.448 10*3/uL Normal 9844-6075 [facility] Comment on above: Performed By: #### 9 8425, 6399, 7600 #### [facility] of [address], [address] [place] [address] Head Of Advertising: Norbert Choudhary MD Neutrophils/100 WBC (Bld) 51 % Normal [facility] Comment on above: Performed By: #### 9 3925, 63, 7600 #### [facility] of [address], [address] [place] [address] Head Of Advertising: Norbert Choudhary MD Platelet mean volume (Bld) [Entitic vol] 9.3 fL Normal 7.5-12.5 [facility] Comment on above: Performed By: #### 9 790, 63, 7600 #### [facility] of [address], [address] [place] [address] Head Of Advertising: Norbert Choudhary MD Platelets (Bld) [#/Vol] 292 10*3/uL Normal 140-400 [facility] Comment on above: Performed By: #### 9 578, 63, 7600 #### [facility] of [address], [address] [place] [address] Head Of Advertising: Norbert Choudhary MD RBC (Bld) [#/Vol] 4.73 10*6/uL Normal 3.80-5.10 [facility] Comment on above: Performed By: #### 9 9035, 6399, 7600 #### [facility] of [address], [address] [place] [address] Head Of Advertising: Norbert Choudhary MD WBC (Bld) [#/Vol] 4.8 10*3/uL Normal 3.8-10.8 [facility] Comment on above: Performed By: #### 9 6615, 6399, 7600 #### [facility] of [address], [address] [place] [address] Head Of Advertising: Norbert Choudhary MD COMPREHENSIVE METABOLIC PANE L W/ANION GAPon 02-24-2025 Albumin [Mass/Vol] 4.5 g/dL Normal 3.6-5.1 [facility] Comment on above: Performed By: #### 9 1735, 6399, 7600 #### [facility] of [address], [address] [place] [address] Head Of Advertising: Norbert Choudhary MD ALP [Catalytic activity/Vol] 30 U/L Low 31-125 [facility] Comment on above: Performed By: #### 9 646, 63, 7600 #### [facility] of [address], [address] [place] [address] Head Of Advertising: Norbert Choudhary MD ALT [Catalytic activity/Vol] 28 U/L Normal 6-29 [facility] Comment on above: Performed By: #### 9 293, 6399, 7600 #### [facility] of [address], [address] [place] [address] Head Of Advertising: Norbert Choudhary MD AST [Catalytic activity/Vol] 23 U/L Normal 10-30 [facility] Comment on above: Performed By: #### 9 151, 6399, 7600 #### [facility] of [place] [address] Head Of Advertising: Norbert Choudhary MD Bilirubin [Mass/Vol] 0.8 mg/dL Normal 0.2-1.2 [facility] Comment on above: Performed By: #### 9 7455, 6399, 7600 #### [facility] of [place] [address] Head Of Advertising: Norbert Choudhary MD Calcium [Mass/Vol] 9.4 mg/dL Normal 8.6-10.2 [facility] Comment on above: Performed By: #### 9 217, 6399, 7600 #### [facility] of [address] [place] [address] Head Of Advertising: Norbert Choudhary MD Chloride [Moles/Vol] 105 mmol/L Normal 98-110 [facility] Comment on above: Performed By: #### 9 0395, 6399, 7600 #### [facility] of [address], [address] [place] [address] Head Of Advertising: Norbert Choudhary MD CO2 [Moles/Vol] 26 mmol/L Normal 20-32 [facility] Comment on above: Performed By: #### 9 2715, 6399, 7600 #### [facility] of [address], [address] [place] [address] Head Of Advertising: Norbert Choudhary MD Creatinine [Mass/Vol] 0.77 mg/dL Normal 0.50-0.97 [facility] Comment on above: Performed By: #### 9 8835, 63, 7600 #### [facility] of [address], [address] [place] [address] Head Of Advertising: Norbert Choudhary MD ELECTROLYTE BALANCE 8 mmol/L (calc) Normal 7-17 [facility] Comment on above: Performed By: #### 9 9385, 6399, 7600 #### [facility] [address], [address] [place] [address] Head Of Advertising: Norbert Choudhary MD GFR/1.73 sq M.predicted among non-blacks MDRD (S/P/Bld) [Vol rate/Area] 103 mL/min/{1.73_m2} Normal > OR = 60 [facility] Comment on above: Performed By: #### 9 7215, 3699, 7600 #### [facility] of [address], [address] [place] [address] Head Of Advertising: Norbert Choudhary MD Glucose [Mass/Vol] 86 mg/dL Normal 65-99 [facility] Comment on above: Result Comment: Fasting reference interval Performed By: #### 9 2765, 6399, 7600 #### [facility] of [address], [address] [place] [address] Head Of Advertising: Norbert Choudhary MD Potassium [Moles/Vol] 4.1 mmol/L Normal 3.5-5.3 [facility] Comment on above: Performed By: #### 9 1525, 6399, 7600 #### [facility] of [address], [address] [place] [address] Head Of Advertising: Norbert Choudhary MD Protein [Mass/Vol] 7.0 g/dL Normal 6.1-8.1 [facility] Comment on above: Performed By: #### 9 3975, 0899, 7600 #### [facility] of [address], [address] [place] [address] Head Of Advertising: Norbert Choudhary MD Sodium [Moles/Vol] 139 mmol/L Normal 135-146 [facility] Comment on above: Performed By: #### 9 440, 4799, 7600 #### [facility] of [address], [address] [place] [address] Head Of Advertising: Norbert Choudhary MD Urea nitrogen [Mass/Vol] 10 mg/dL Normal 7-25 [facility] Comment on above: Performed By: #### 9 2901, 1299, 7600 #### [facility] of [address], [address] [place] [address] Head Of Advertising: Norbert Choudhary MD LIPID PANEL, [facility] 02-15 0-2024 Cholesterol [Mass/Vol] 179 mg/dL Normal <200 [facility] Comment on above: Order Comment: FASTI NG:YES FASTING: YES Performed By: #### 9 0645, 5999, 7600 #### [facility] of [address], [address] [place] [address] Head Of Advertising: Norbert Choudhary MD Cholesterol in HDL [Mass/Vol] 62 mg/dL Normal > OR = 50 [facility] Comment on above: Order Comment: FASTI NG:YES FASTING: YES Performed By: #### 9 619, 1499, 7600 #### [facility] of [address], [address] [place] [address] Head Of Advertising: Norbert Choudhary MD Cholesterol in LDL [Mass/Vol] 95 mg/dL Normal [facility] Comment on above: Order Comment: FASTI NG:YES FASTING: YES Result Comment: Refe rence range: <100 Desirable range <100 mg/dL for primary prevention; <70 mg/dL for patients with CHD or diabetic patients with > or = 2 CHD risk factors. LDL-C is now calculated using the Lindy calculation, which is a validated novel method providing better accuracy than the Friedewald equation in the estimation of LDL-C. Diallo PICHARDO et al. SAIRA. 2013;310(19): 6192-1436 (http://education.[employer]/faq/FBP921) Performed By: #### 9 0171, 9016, 1190 #### [facility] [address], [address] [place] [address] Head Of Advertising: Norbert Choudhary MD Cholesterol.total/C holesterol in HDL [Mass ratio] 2.9 {ratio} Normal <5.0 [facility] Comment on above: Order Comment: FASTI NG:YES FASTING: YES Performed By: #### 9 0653, 5318, 7600 #### [facility] [address], [address] [place] [address] Head Of Advertising: Norbert Choudhary MD NON HDL CHOLESTEROL 117 mg/dL (calc) Normal <130 [facility] Comment on above: Order Comment: FASTI NG:YES FASTING: YES Result Comment: For patients with diabetes plus 1 major ASCVD risk factor, treating to a non-HDL-C goal of <100 mg/dL (LDL-C of <70 mg/dL) is considered a therapeutic option. Performed By: #### 9 5265, 0499, 7600 #### [facility] [address], [address] [place] [address] Head Of Advertising: Norbert Choudhary MD Triglyceride [Mass/Vol] 120 mg/dL Normal <150 [facility] Comment on above: Order Comment: FASTI NG:YES FASTING: YES Performed By: #### 9 6526, 8459, 7600 #### [facility] [address], [address] Head Of Advertising: Norbert Choudhary MD VITAMIN D,25-OH,TOTAL,IAon 0 02-24-2025 VITAMIN D,25-OH,TOTAL,IA 40 ng/mL Normal 30-100 [facility] Comment on above: Result Comment: Jolene min D Status 25-OH Vitamin D: Deficiency: <20 ng/mL Insufficiency: 20 - 29 ng/mL Optimal: > or = 30 ng/mL For 25-OH Vitamin D testing on patients on D2-supplementation and patients for whom quantitation of D2 and D3 fractions is required, the Quest[facility]ure[facility](TM) 25-OH VIT D, (D2,D3), LC/MS/MS is recommended: order code 42983 (patients >2yrs). See Note 1 Note 1 For additional information, please refer to http://education.[employer]/faq/BXQ239 (This link is being provided for informational/ educational purposes only.) Performed By: #### 1 7306 #### [facility] [address] , [address] [place] [address] Head Of Advertising: Norbert Choudhary MD Surgical pathology studyon 0 12-30-2024 Surgical pathology study Pathology report.total SEE COMMENT Surgical Pathology Case: [id number] Authorizing Provider: Kelly Yang MD Collected: 12/30/2024 [facility] Ordering Location: [facility] Received: 12/31/2024 [facility] [place] Pathologist: Sandy Adams MD Specimen: APPENDIX Path report.final diagnosis SEE COMMENT A. APPENDIX: -- Acute suppurative appendicitis with periappendicitis. Laboratory comment By the signature on this report, the individual or group listed as making the Final Interpretation/Diagnos is certifies that they have reviewed this case. Path report.relevant Hx SEE COMMENT Pre-op diagnosis: Acute appendicitis with localized peritonitis, without perforation, abscess, or gangrene [K35.30] Path report.gross observation SEE COMMENT A: Received in formalin, labeled with the patient's name and hospital number and "appendix", is an appendix specimen, 7.6 x 1.5 x 1.0 cm. The mesoappendix measures 6.9 cm in length. The serosal surface is momin, smooth and glistening with focal white-momin fibrinous exudate. There are no transmural defects grossly identified. Cross sections reveal a dilated lumen measuring up to 0.8 cm. Purulent material is present. Flight Attendant/Inflight Manager sections are submitted in two cassettes. SMS Summary of cassettes: Specimen Label Site A 1 perpendicular distal tip sections, proximal margin 2 operations representative sections of body [facility] Comment on above: Order Comment: Pre-o p diagnosis:Acute appendicitis with localized peritonitis, without perforation, abscess, or gangrene [K35.30] Bacteria identifiedon 2024 Bacteria identified Cx Nom (U) Test: Urine Culture Specimen Source: Clean Catch/Voided Specimen Type: Urine Specimen Date: 12/29/20242210 Result Date: 12/31/2024813 Result Status: Final result Abnormal: No Resulting Lab: [facility] [address] [place] [address] CULTURE Clinically insignificant growth based on current clinical standards. [facility] Comment on above: Performed By: #### 6 30-4 #### ISSAC Lacy ([id number]) [facility] ([facility]) [address] [place] [address] CBC W Auto Differential pane l (Bld)on 12-29-2024 Basophils (Bld) [#/Vol] 0.02 10*3/uL [facility] Basophils/100 WBC (Bld) 0.1 % 0.0 - 2.0 % [facility] Eosinophils (Bld) [#/Vol] 0.02 10*3/uL [facility] Eosinophils/100 WBC (Bld) 0.1 % 0.0 - 6.0 % [facility] Erythrocyte distribution width (RBC) [Ratio] 12.1 % 11.5 - 14.5 % [facility] Hematocrit (Bld) [Volume fraction] 42.9 % 36.0 - 46.0 % [facility] Hemoglobin (Bld) [Mass/Vol] 14.3 g/dL 12.0 - 16.0 g/dL [facility] Immature granulocytes (Bld) [#/Vol] 0.06 10*3/uL [facility] Immature granulocytes/100 WBC (Bld) 0.3 % 0.0 - 0.9 % [facility] Comment on above: Immature Granulocyte Count (IG) includes promyelocytes, myelocytes and metamyelocytes but does not include bands. Percent differential counts (%) should be interpreted in the context of the absolute cell counts (cells/UL). Interpretation and review of laboratory results Abnormal [facility] Lymphocytes (Bld) [#/Vol] 0.65 10*3/uL Low [facility] Lymphocytes/100 WBC (Bld) 3.7 % 13.0 - 44.0 % [facility] MCH (RBC) [Entitic mass] 31.1 pg 26.0 - 34.0 pg [facility] MCHC (RBC) [Mass/Vol] 33.3 g/dL 32.0 - 36.0 g/dL [facility] MCV (RBC) [Entitic vol] 93 fL 80 - 100 fL [facility] Monocytes (Bld) [#/Vol] 0.73 10*3/uL [facility] Monocytes/100 WBC (Bld) 4.1 % 2.0 - 10.0 % [facility] Neutrophils (Bld) [#/Vol] 16.22 10*3/uL High [facility] Comment on above: Percent differential counts (%) should be interpreted in the context of the absolute cell counts (cells/uL). Neutrophils/100 WBC (Bld) 91.7 % 40.0 - 80.0 % [facility] Nucleated RBC/100 WBC (Bld) [Ratio] 0 % [facility] Platelets (Bld) [#/Vol] 276 10*3/uL [facility] RBC (Bld) [#/Vol] 4.6 10*6/uL [facility] WBC (Bld) [#/Vol] 17.7 10*3/uL High [facility] Basophils (Bld) [#/Vol] 0.02 x10*3/uL Normal 0.00-0.10 [facility] Comment on above: Performed By: #### 7021-8 #### MAAME BARKSDALE ([id number]) [facility] ([facility]) [address] [place] [address] Basophils/100 WBC (Bld) 0.1 % Normal 0.0-2.0 [facility] Comment on above: Performed By: #### 7021-8 #### MAAME BARKSDALE ([id number]) [facility] ([facility]) [address] [place] [address] Eosinophils (Bld) [#/Vol] 0.02 x10*3/uL Normal 0.00-0.70 [facility] Comment on above: Performed By: #### 70-8 #### MAAME BARKSDALE ([id number]) [facility] ([facility]) [address] [place] [address] Eosinophils/100 WBC (Bld) 0.1 % Normal 0.0-6.0 [facility] Comment on above: Performed By: #### 70-8 #### MAAME BARSKDALE ([id number]) [facility] ([facility]) [address] [place] [address] Erythrocyte distribution width (RBC) [Ratio] 12.1 % Normal 11.5-14.5 [facility] Comment on above: Performed By: #### 7021-8 #### MAAME BARKSDALE ([id number]) [facility] ([facility]) [address] [place] [address] Hematocrit (Bld) [Volume fraction] 42.9 % Normal 36.0-46.0 [facility] Comment on above: Performed By: #### 7021-8 #### MAAME BARKSDALE ([id number]) [facility] ([facility]) [address] [place] [address] Hemoglobin (Bld) [Mass/Vol] 14.3 g/dL Normal 12.0-16.0 [facility] Comment on above: Performed By: #### 7021-8 #### MAAME BARKSDALE ([id number]) [facility] ([facility]) [address] [place] [address] Immature granulocytes (Bld) [#/Vol] 0.06 x10*3/uL Normal 0.00-0.70 [facility] Comment on above: Performed By: #### 5 7021-8 #### MAAME BARKSDALE ([id number]) [facility] ([facility]) [address] [place] [address] Immature granulocytes/100 WBC (Bld) 0.3 % Normal 0.0-0.9 [facility] Comment on above: Result Comment: Tracee ture Granulocyte Count (IG) includes promyelocytes, myelocytes and metamyelocytes but does not include bands. Percent differential counts (%) should be interpreted in the context of the absolute cell counts (cells/UL). Performed By: #### 5 7021-8 #### MAAME BARKSDALE ([id number]) [facility] ([facility]) [address] [place] [address] Lymphocytes (Bld) [#/Vol] 0.65 x10*3/uL Low 1.20-4.80 [facility] Comment on above: Performed By: #### 5 7021-8 #### MAAME BARKSDALE ([id number]) [facility] ([facility]) [address] [place] [address] Lymphocytes/100 WBC (Bld) 3.7 % Normal 13.0-44.0 [facility] Comment on above: Performed By: #### 5 7021-8 #### MAAME BARKSDALE ([id number]) [facility] ([facility]) [address] [place] [address] MCH (RBC) [Entitic mass] 31.1 pg Normal 26.0-34.0 [facility] Comment on above: Performed By: #### 5 7021-8 #### MAAME BARKSDALE ([id number]) [facility] ([facility]) [address] [place] [address] 51849 MCHC (RBC) [Mass/Vol] 33.3 g/dL Normal 32.0-36.0 [facility] Comment on above: Performed By: #### 5 7021-8 #### MAAME BARKSDALE ([id number]) [facility] ([facility]) [address] [place] [address] 22668 MCV (RBC) [Entitic vol] 93 fL Normal 80-100 [facility] Comment on above: Performed By: #### 5 7021-8 #### MAAME BARKSDALE ([id number]) [facility] ([facility]) [address] [place] [address] 70904 Monocytes (Bld) [#/Vol] 0.73 x10*3/uL Normal 0.10-1.00 [facility] Comment on above: Performed By: #### 5 7021-8 #### MAAME BARKSDALE ([id number]) [facility] ([facility]) [address] [place] [address] 26126 Monocytes/100 WBC (Bld) 4.1 % Normal 2.0-10.0 [facility] Comment on above: Performed By: #### 5 7021-8 #### MAAME BARKSDALE ([id number]) [facility] ([facility]) [address] [place] [address] 74894 Neutrophils (Bld) [#/Vol] 16.22 x10*3/uL High 1.20-7.70 [facility] Comment on above: Result Comment: Perc ent differential counts (%) should be interpreted in the context of the absolute cell counts (cells/uL). Performed By: #### 5 7021-8 #### MAAME BARKSDALE ([id number]) [facility] ([facility]) [address] [place] [address] 16615 Neutrophils/100 WBC (Bld) 91.7 % Normal 40.0-80.0 [facility] Comment on above: Performed By: #### 5 7021-8 #### MAAME BARKSDALE ([id number]) [facility] ([facility]) [address] [place] [address] 61798 Nucleated RBC/100 WBC (Bld) [Ratio] 0.0 /100 WBCs Normal 0.0-0.0 [facility] Comment on above: Performed By: #### 5 7021-8 #### MAAME BARKSDALE ([id number]) [facility] ([facility]) [facility] [place] [address] Platelets (Bld) [#/Vol] 276 x10*3/uL Normal 150-450 [facility] Comment on above: Performed By: #### 5 7021-8 #### MAAME BARKSDALE ([id number]) [facility] ([facility]) [facility] [place] [address] RBC (Bld) [#/Vol] 4.60 x10*6/uL Normal 4.00-5.20 [facility] Comment on above: Performed By: #### 5 7021-8 #### MAAME BARKSDALE ([id number]) [facility] ([facility]) [address] [place] [address] WBC (Bld) [#/Vol] 17.7 x10*3/uL High 4.4-11.3 [facility] Comment on above: Performed By: #### 5 7021-8 #### MAAME BARKSDALE ([id number]) [facility] ([facility]) [address] [place] [address] CT ABDOMEN PELVIS W IV CONTR Mustapha 12-29-2024 CT ABDOMEN PELVIS W IV CONTRAST Interpreted By: Lopez Oleary, STUDY: CT ABDOMEN PELVIS W IV CONTRAST; 12/29/2024 10:17 pm INDICATION: Signs/Symptoms:RLQ abdominal pain. COMPARISON: None. ACCESSION NUMBER(S): [id number] ORDERING CLINICIAN: MARLY CABA TECHNIQUE: Contiguous axial images of the abdomen and pelvis were obtained after the intravenous administration of iodinated contrast. Coronal and sagittal reformatted images were reconstructed from the axial data. FINDINGS: Liver, gallbladder, adrenals pancreas spleen and kidneys are within normal limits. No bowel obstruction. The appendix appears to be dilated measuring 12 mm in diameter. Finding could reflect early appendicitis. No colitis. Bladder within normal limits. Uterus is retroflexed. No significant free fluid. Normal caliber aorta. Osseous structures are intact. IMPRESSION: Dilated appendix could reflect early appendicitis in the appropriate clinical setting. No evidence of perforation. MACRO: None. Signed by: Lopez Oleary 12/29/2024 10:55 PM Dictation workstation: [id number] [facility] CT Abdomen and Pelvis W cont rast Brandy 12-29-2024 Dilated appendix cou ld reflect early appendicitis in the appropriate clinical setting. No evidence of perforation. MACRO: None. Signed by: Lopez Oleary 12/29/2024 10:55 PM Dictation workstation: [id number] [facility] Interpreted By: Lopez Oleary, STUDY: CT ABDOMEN PELVIS W IV CONTRAST; 12/29/2024 10:17 pm INDICATION: Signs/Symptoms:RLQ abdominal pain. COMPARISON: None. ACCESSION NUMBER(S): [id number] ORDERING CLINICIAN: MARLY CABA TECHNIQUE: Contiguous axial images of the abdomen and pelvis were obtained after the intravenous administration of iodinated contrast. Coronal and sagittal reformatted images were reconstructed from the axial data. FINDINGS: Liver, gallbladder, adrenals pancreas spleen and kidneys are within normal limits. No bowel obstruction. The appendix appears to be dilated measuring 12 mm in diameter. Finding could reflect early appendicitis. No colitis. Bladder within normal limits. Uterus is retroflexed. No significant free fluid. Normal caliber aorta. Osseous structures are intact. [facility] Lopez Oleary MD - 12/29/2024 Interpreted By: Lopez Oleary, STUDY: CT ABDOMEN PELVIS W IV CONTRAST; 12/29/2024 10:17 pm INDICATION: Signs/Symptoms:RLQ abdominal pain. COMPARISON: None. ACCESSION NUMBER(S): [id number] ORDERING CLINICIAN: MARLY CABA TECHNIQUE: Contiguous axial images of the abdomen and pelvis were obtained after the intravenous administration of iodinated contrast. Coronal and sagittal reformatted images were reconstructed from the axial data. FINDINGS: Liver, gallbladder, adrenals pancreas spleen and kidneys are within normal limits. No bowel obstruction. The appendix appears to be dilated measuring 12 mm in diameter. Finding could reflect early appendicitis. No colitis. Bladder within normal limits. Uterus is retroflexed. No significant free fluid. Normal caliber aorta. Osseous structures are intact. IMPRESSION: Dilated appendix could reflect early appendicitis in the appropriate clinical setting. No evidence of perforation. MACRO: None. Signed by: Lopez Oleary 12/29/2024 10:55 PM Dictation workstation: [id number] [facility] Work Phone: Radiology Study observation (narrative) [facility] Work Phone: CT Abdomen and Pelvis W cont rast IVOrdered By: Lopez Oleary on 12-29-2024 [facility] Work Phone: Choriogonadotropin.beta subu niton 12-29-2024 HCG.beta subunit Qn m[IU]/mL Normal <5 [facility] Comment on above: Order Comment: Total HCG measurement is performed using the Sammy [place] Access Immunoassay which detects intact HCG and free beta HCG subunit. This test is not indicated for use as a tumor marker. HCG testing is performed using a different test methodology at [facility] than other [facility]. Direct result comparison should only be made within the same method. Performed By: #### 2 1198-7 #### ISABEL APOLONIA ([id number]) [facility] ([facility]) [address] [place] [address] Comprehensive metabolic 2000 panelon 12-29-2024 Albumin BCP dye [Mass/Vol] 4.3 g/dL 3.4 - 5.0 g/dL [facility] ALP [Catalytic activity/Vol] 32 U/L Low 33 - 110 U/L [facility] ALT With P-5'-P [Catalytic activity/Vol] 25 U/L 7 - 45 U/L [facility] Comment on above: Patients treated wit h Sulfasalazine may generate falsely decreased results for ALT. Anion gap [Moles/Vol] 13 mmol/L 10 - 20 mmol/L [facility] AST With P-5'-P [Catalytic activity/Vol] 23 U/L 9 - 39 U/L [facility] Bilirubin [Mass/Vol] 1.1 mg/dL 0.0 - 1.2 mg/dL [facility] Calcium [Mass/Vol] 9 mg/dL 8.6 - 10. 3 mg/dL [facility] Chloride [Moles/Vol] 102 mmol/L 98 - 107 mmol/L [facility] CO2 [Moles/Vol] 24 mmol/L 21 - 32 mmol/L [facility] Creatinine [Mass/Vol] 0.77 mg/dL 0.50 - 1.05 mg/dL [facility] eGFR - PINF [facility] Comment on above: Calculations of drea mated GFR are performed using the 2020 CKD-EPI Study Refit equation without the race variable for the IDMS-Traceable creatinine methods. https://jasn.asnjournals.org/content//ASN.14802339 88 Glucose [Mass/Vol] 139 mg/dL High 74 - 99 mg/dL [facility] Interpretation and review of laboratory results Abnormal [facility] Potassium [Moles/Vol] 4.1 mmol/L 3.5 - 5.3 mmol/L [facility] Protein [Mass/Vol] 7.5 g/dL 6.4 - 8.2 g/dL [facility] Sodium [Moles/Vol] 135 mmol/L Low 136 - 145 mmol/L [facility] Urea nitrogen [Mass/Vol] 13 mg/dL 6 - 23 mg/dL [facility] Albumin BCP dye [Mass/Vol] 4.3 g/dL Normal 3.4-5.0 [facility] Comment on above: Performed By: #### 2 4323-8 #### MAAME BARKSDALE ([id number]) [facility] ([facility]) [address] [place] [address] ALP [Catalytic activity/Vol] 32 U/L Low 33-110 [facility] Comment on above: Performed By: #### 2 4323-8 #### MAAME BARKSDALE ([id number]) [facility] ([facility]) [address] [place] [address] 30621 ALT With P-5'-P [Catalytic activity/Vol] 25 U/L Normal 7-45 [facility] Comment on above: Result Comment: Shiloh ents treated with Sulfasalazine may generate falsely decreased results for ALT. Performed By: #### 2 4323-8 #### MAAME BARKSDALE ([id number]) [facility] ([facility]) [address] [place] [address] 68745 Anion gap [Moles/Vol] 13 mmol/L Normal 10-20 [facility] Comment on above: Performed By: #### 2 4323-8 #### MAAME BARKSDALE ([id number]) [facility] ([facility]) [address] [place] [address] 24356 AST With P-5'-P [Catalytic activity/Vol] 23 U/L Normal 9-39 [facility] Comment on above: Performed By: #### 2 4323-8 #### MAAME BARKSDALE ([id number]) [facility] ([facility]) [address] [place] [address] 73695 Bilirubin [Mass/Vol] 1.1 mg/dL Normal 0.0-1.2 [facility] Comment on above: Performed By: #### 2 4322-8 #### MAAME BARKSDALE ([id number]) [facility] ([facility]) [address] [place] [address] 31336 Calcium [Mass/Vol] 9.0 mg/dL Normal 8.6-10.3 [facility] Comment on above: Performed By: #### 2 4322-8 #### MAAME BARKSDALE ([id number]) [facility] ([facility]) [address] [place] [address] 73547 Chloride [Moles/Vol] 102 mmol/L Normal 98-107 [facility] Comment on above: Performed By: #### 2 3-8 #### AMAME BARKSDALE ([id number]) [facility] ([facility]) [address] [place] [address] 48443 CO2 [Moles/Vol] 24 mmol/L Normal 21-32 [facility] Comment on above: Performed By: #### 2 4323-8 #### MAAME BARKSDALE ([id number]) [facility] ([facility]) [address] [place] [address] 11730 Creatinine [Mass/Vol] 0.77 mg/dL Normal 0.50-1.05 [facility] Comment on above: Performed By: #### 2 4323-8 #### MAAME BARKSDALE ([id number]) [facility] ([facility]) [address] [place] [address] 27428 GFR/1.73 sq M.predicted MDRD (S/P/Bld) [Vol rate/Area] mL/min/{1.73_m2} Normal >60 [facility] Comment on above: Result Comment: Calc ulations of estimated GFR are performed using the 2020 CKD-EPI Study Refit equation without the race variable for the IDMS-Traceable creatinine methods. https://jasn.asnjournals.org/content/early//ASN.12934870 88 Performed By: #### 2 4323-8 #### MAAME BARKSDALE ([id number]) [facility] ([facility]) [address] [place] [address] 65277 Glucose [Mass/Vol] 139 mg/dL High 74-99 [facility] Comment on above: Performed By: #### 2 4323-8 #### MAAME BARKSDALE ([id number]) [facility] ([facility]) [address] [place] [address] 68827 Potassium [Moles/Vol] 4.1 mmol/L Normal 3.5-5.3 [facility] Comment on above: Performed By: #### 2 4323-8 #### MAAME BARKSDALE ([id number]) [facility] ([facility]) [address] [place] [address] 85342 Protein [Mass/Vol] 7.5 g/dL Normal 6.4-8.2 [facility] Comment on above: Performed By: #### 2 4323-8 #### MAAME BARKSDALE ([id number]) [facility] ([facility]) [address] [place] [address] 10912 Sodium [Moles/Vol] 135 mmol/L Low 136-145 [facility] Comment on above: Performed By: #### 2 4323-8 #### MAAME BARKSDALE ([id number]) [facility] ([facility]) [address] [place] [address] 45988 Urea nitrogen [Mass/Vol] 13 mg/dL Normal 6-23 [facility] Comment on above: Performed By: #### 2 4323-8 #### MAAME BARKSDALE ([id number]) [facility] ([facility]) [address] [place] [address] HCG ( test) IA.rapi d Ql (U)Ordered By: Uriel Tovar on 12-29-2024 HCG ( test) Ql (U) Negative NEGATIVE [facility] Interpretation and review of laboratory results Normal [facility] HCG ( test) IA.rapi d Ql (U)on 12-29-2024 HCG ( test) Ql (U) Negative Normal NEGATIVE [facility] Comment on above: Performed By: #### 8 0384-1 #### MAAME BARKSDALE ([id number]) [facility] ([facility]) [address] [place] [address] HCG.beta subunit Qnon 2024 Interpretation and review of laboratory results Normal [facility] Total HCG measuremen t is performed using the Sammy Exam18 Access Immunoassay which detects intact HCG and free beta HCG subunit. This test is not indicated for use as a tumor marker. HCG testing is performed using a different test methodology at [facility] than other [facility]. Direct result comparison should only be made within the same method. [facility] Lactateon 12-29-2024 Lactate [Moles/Vol] 1.3 mmol/L 0.4 - 2. 0 mmol/L [facility] Lactate [Moles/Vol] 1.3 mmol/L Normal 0.4-2.0 [facility] Comment on above: Order Comment: Venip uncture immediately after or during the administration of Metamizole may lead to falsely low results. Testing should be performed immediately prior to Metamizole dosing. Performed By: #### 2 524-7 #### MAAME BARKSDALE ([id number]) [facility] ([facility]) [address] [place] [address] Lipaseon 12-29-2024 Lipase [Catalytic activity/Vol] 13 U/L 9 - 82 U/L [facility] No Panel Informationon 12-29 Interpretation and review of laboratory results Abnormal [facility] Interpretation and review of laboratory results Normal [facility] Venipuncture immediately after or during the administration of Metamizole may lead to falsely low results. Testing should be performed immediately prior to Metamizole dosing. [facility] Triacylglycerol lipaseon Lipase [Catalytic activity/Vol] 13 U/L Normal 9-82 [facility] Comment on above: Order Comment: Venip uncture immediately after or during the administration of Metamizole may lead to falsely low results. Testing should be performed immediately prior to Metamizole dosing. Performed By: #### 3 040-3 #### MAAME BARKSDALE ([id number]) [facility] ([facility]) [address] [place] [address] Urinalysis complete W Reflex Culture panel (U)on 12-29-2024 Appearance (U) Clear Clear [facility] Bilirubin (U) [Mass/Vol] Negative NEGATIVE mg/dL [facility] Color (U) Light-Yellow Light-Yellow , Yellow, Dark-Yellow [facility] Glucose Auto test strip (U) [Mass/Vol] Normal Normal mg/dL [facility] Ketones (U) [Mass/Vol] Negative NEGATIVE mg/dL [facility] Leukocyte esterase Auto test strip Ql (U) 25 Sandie/uL Abnormal NEGATIVE [facility] Nitrite Auto test strip Ql (U) Negative NEGATIVE [facility] pH (U) 7 [pH] 5.0, 5.5, 6.0, 6.5, 7.0, 7.5, 8.0 [facility] Protein (U) [Mass/Vol] Negative NEGATIVE, 10 (TRACE), 20 (TRACE) mg/dL [facility] RBC (U) [#/Vol] 0.03 (TRACE) Abnormal NEGATIVE mg/dL [facility] Specific gravity (U) [Rel density] 1.012 1.005 - 1.035 [facility] Urobilinogen (U) [Mass/Vol] Normal Normal mg/dL [facility] Appearance (U) Clear Normal Clear [facility] Comment on above: Performed By: #### 5 8077-9 #### MAAME BARKSDALE ([id number]) [facility] ([facility]) [address] [place] [address] Bilirubin (U) [Mass/Vol] Negative Normal NEGATIVE [facility] Comment on above: Performed By: #### 5 8077-9 #### MAAME BARKSDALE ([id number]) [facility] ([facility]) [address] [place] [address] Color (U) Light-Yellow Normal Light-Yellow , Yellow, Dark-Yellow [facility] Comment on above: Performed By: #### 5 8077-9 #### MAAME BARKSDALE ([id number]) [facility] ([facility]) [address] [place] [address] Glucose Auto test strip (U) [Mass/Vol] Normal Normal Normal [facility] Comment on above: Performed By: #### 5 8077-9 #### MAAME BARKSDALE ([id number]) [facility] ([facility]) [address] [place] [address] Ketones (U) [Mass/Vol] Negative Normal NEGATIVE [facility] Comment on above: Performed By: #### 5 8077-9 #### MAAME BARKSDALE ([id number]) [facility] ([facility]) [address] [place] [address] Leukocyte esterase Auto test strip Ql (U) 25 Sandie/uL Abnormal NEGATIVE [facility] Comment on above: Performed By: #### 5 8077-9 #### MAAME BARKSDALE ([id number]) [facility] ([facility]) [address] [place], [place] [address] Nitrite Auto test strip Ql (U) Negative Normal NEGATIVE [facility] Comment on above: Performed By: #### 5 8077-9 #### MAAME BARKSDALE ([id number]) [facility] ([facility]) [address] [place], [place] [address] pH (U) 7.0 [pH] Normal 5.0, 5.5, 6.0, 6.5, 7.0, 7.5, 8.0 [facility] Comment on above: Performed By: #### 5 8077-9 #### MAAME BARKSDALE ([id number]) [facility] ([facility]) [address] [place] [address] Protein (U) [Mass/Vol] Negative Normal NEGATIVE, 10 (TRACE), 20 (TRACE) [facility] Comment on above: Performed By: #### 5 8077-9 #### MAAME BARKSDALE ([id number]) [facility] ([facility]) [address] [place] [address] RBC (U) [#/Vol] 0.03 (TRACE) Abnormal NEGATIVE [facility] Comment on above: Performed By: #### 5 8077-9 #### MAAME BARKSDALE ([id number]) [facility] ([facility]) [address] [place] [address] Specific gravity (U) [Rel density] 1.012 Normal 1.005-1.035 [facility] Comment on above: Performed By: #### 5 8077-9 #### MAAME BARKSDALE ([id number]) [facility] ([facility]) [address] [place] [address] Urobilinogen (U) [Mass/Vol] Normal Normal Normal [facility] Comment on above: Performed By: #### 5 8077-9 #### MAAME BARKSDALE ([id number]) [facility] ([facility]) [address] [place] [address] Urinalysis microscopic panel Auto Ql (U)on 12-29-2024 Bacteria Auto (Urine sed) [#/Area] 1+ Abnormal NONE SEEN /HPF [facility] Epithelial cells.squamous Auto (Urine sed) [#/Area] 1-9 (SPARSE) Reference range not established. /HPF [facility] RBC Auto (Urine sed) [#/Area] 1-2 NONE, 1-2, 3-5 /HPF [facility] WBC Auto (Urine sed) [#/Area] 1-5 1-5, NONE /HPF [facility] Bacteria Auto (Urine sed) [#/Area] 1+ /HPF Abnormal NONE SEEN [facility] Comment on above: Performed By: #### 5 3315-8 #### MAAME BARKSDALE ([id number]) [facility] ([facility]) [address] [place] [address] 86519 Epithelial cells.squamous Auto (Urine sed) [#/Area] 1-9 (SPARSE) Normal Reference range not established. [facility] Comment on above: Performed By: #### 5 3315-8 #### MAAME BARKSDALE ([id number]) [facility] ([facility]) [address] [place] [address] 87205 RBC Auto (Urine sed) [#/Area] 1-2 Normal NONE, 1-2, 3-5 [facility] Comment on above: Performed By: #### 5 3315-8 #### MAAME BARKSDALE ([id number]) [facility] ([facility]) [address] [place] [address] 09915 WBC Auto (Urine sed) [#/Area] 1-5 Normal 1-5, NONE [facility] Comment on above: Performed By: #### 5 3315-8 #### MAAME BARKSDALE ([id number]) [facility] ([facility]) [address] [place] [address] 83759 hCG, quantitative, on 12-29-2024 HCG.beta subunit Qn NINF [facility] Blood Pressure Cuff Sizeon 0 06-25-2022 Adult depression screening assessment No [facility] Work Phone: Fall risk assessment a) No falls within the last year [facility] Work Phone: Tobacco use status CPHS b) No [facility] Work Phone: Blood Pressure Cuff Size Adult [facility] Work Phone: CBC AND DIFFERENTIALon 06-25 Basophils (Bld) [#/Vol] 0.00 10*3/uL Normal 0.00 - 0.10 [facility] Comment on above: Performed By: #### C BCDF #### [address] [address] Basophils/100 WBC (Bld) 0.4 % Normal 0.0 - 2.0 [facility] Comment on above: Performed By: #### C BCDF #### [address] [address] Eosinophils (Bld) [#/Vol] 0.00 10*3/uL Normal 0.00 - 0.70 [facility] Comment on above: Performed By: #### C BCDF #### [address] [address] Eosinophils/100 WBC (Bld) 0.5 % Normal 0.0 - 6.0 [facility] Comment on above: Performed By: #### C BCDF #### [address] [address] Erythrocyte distribution width (RBC) [Ratio] 11.9 % Normal 11.5 - 14.5 [facility] Comment on above: Performed By: #### C BCDF #### [address] [address] Hematocrit (Bld) [Volume fraction] 41.0 % Normal 36.0 - 46.0 [facility] Comment on above: Performed By: #### C BCDF #### [address] [address] Hemoglobin (Bld) [Mass/Vol] 13.9 g/dL Normal 12.0 - 16.0 [facility] Comment on above: Performed By: #### C BCDF #### [address] [address] Lymphocytes (Bld) [#/Vol] 1.60 10*3/uL Normal 1.20 - 4.80 [facility] Comment on above: Performed By: #### C BCDF #### [address] [address] Lymphocytes/100 WBC (Bld) 32.5 % Normal 13.0 - 44.0 [facility] Comment on above: Performed By: #### C BCDF #### [address] [address] MCHC (RBC) [Mass/Vol] 33.8 g/dL Normal 32.0 - 36.0 [facility] Comment on above: Performed By: #### C BCDF #### [address] [address] MCV (RBC) [Entitic vol] 92 fL Normal 80 - 100 [facility] Comment on above: Performed By: #### C BCDF #### [address] [address] Monocytes (Bld) [#/Vol] 0.30 10*3/uL Normal 0.10 - 1.00 [facility] Comment on above: Performed By: #### C BCDF #### [address] [address] Monocytes/100 WBC (Bld) 5.6 % Normal 2.0 - 10.0 [facility] Comment on above: Performed By: #### C BCDF #### [address] [address] Neutrophils (Bld) [#/Vol] 3.10 10*3/uL Normal 1.20 - 7.70 [facility] Comment on above: Result Comment: Perc ent differential counts (%) should be interpreted in the context of the absolute cell counts (cells/L). Performed By: #### C BCDF #### [address] [address] Neutrophils/100 WBC (Bld) 61.0 % Normal 40.0 - 80.0 [facility] Comment on above: Performed By: #### C BCDF #### [address] [address] NUCLEATED RBC 0.1 /100 WBC Normal [facility] Comment on above: Performed By: #### C BCDF #### [address] [address] Platelets (Bld) [#/Vol] 270 10*3/uL Normal 150 - 450 [facility] Comment on above: Performed By: #### C BCDF #### [address] [address] RBC 4.49 x10E12/L Normal 4.00 - 5.20 [facility] Comment on above: Performed By: #### C BCDF #### [address] [address] WBC (Bld) [#/Vol] 5.1 10*3/uL Normal 4.4 - 11.3 [facility] [place] Comment on above: Performed By: #### C BCDF #### [address] [address] COMPREHENSIVE PANELon 2021 Albumin [Mass/Vol] 4.3 g/dL Normal 3.4 - 5.0 [facility] [place] Comment on above: Performed By: #### C MP #### [address] [address] ALP [Catalytic activity/Vol] 29 U/L Low 33 - 110 [facility] Comment on above: Performed By: #### C MP #### [address] [address] ALT [Catalytic activity/Vol] 22 U/L Normal 7 - 45 [facility] Comment on above: Result Comment: [place] ents treated with Sulfasalazine may generate falsely decreased results for ALT. Performed By: #### C MP #### [address] [address] Anion gap [Moles/Vol] 11 mmol/L Normal 10 - 20 [facility] Comment on above: Performed By: #### C MP #### [address] [address] AST [Catalytic activity/Vol] 22 U/L Normal 9 - 39 [facility] Comment on above: Performed By: #### C MP #### [address] [address] Bilirubin [Mass/Vol] 0.6 mg/dL Normal 0.0 - 1.2 [facility] Comment on above: Performed By: #### C MP #### [address] [address] Calcium [Mass/Vol] 9.5 mg/dL Normal 8.6 - 10.3 [facility] [place] Comment on above: Performed By: #### C MP #### [address] [address] Chloride [Moles/Vol] 107 mmol/L Normal 98 - 107 [facility] Comment on above: Performed By: #### C MP #### [address] [address] Creatinine [Mass/Vol] 0.69 mg/dL Normal 0.50 - 1.05 [facility] Comment on above: Performed By: #### C MP #### [address] [address] eGFR FEMALE >90 Normal >90 [facility] Comment on above: Result Comment: CALC ULATIONS OF ESTIMATED GFR ARE PERFORMED USING THE 2020 CKD-EPI STUDY REFIT EQUATION WITHOUT THE RACE VARIABLE FOR THE IDMS-TRACEABLE CREATININE METHODS. https://jasn.asnjournals.org/content/early//ASN.79505342 88 Performed By: #### C MP #### [address] [address] Glucose [Mass/Vol] 91 mg/dL Normal 74 - 99 [facility] [place] Comment on above: Performed By: #### C MP #### [address] [address] HCO3 (Bld) [Moles/Vol] 24 mmol/L Normal 21 - 32 [facility] Comment on above: Performed By: #### C MP #### [address] [address] Potassium [Moles/Vol] 3.7 mmol/L Normal 3.5 - 5.3 [facility] Comment on above: Performed By: #### C MP #### [address] [address] Protein [Mass/Vol] 7.0 g/dL Normal 6.4 - 8.2 [facility] [place] Comment on above: Performed By: #### C MP #### [address] [address] Sodium [Moles/Vol] 138 mmol/L Normal 136 - 145 [facility] [place] Comment on above: Performed By: #### C MP #### [facility] [address] [place] [address] Urea nitrogen [Mass/Vol] 13 mg/dL Normal 6 - 23 [facility] Comment on above: Performed By: #### C MP #### [address] [place] [address] Complete Blood Count + Diffe pilo 06-25-2022 Basophils/100 WBC (Bld) 0.4 % 0.0 - 2.0 [facility] [place] [facility] Work Phone: Erythrocyte distribution width (RBC) [Ratio] 11.9 % See Below [facility] Work Phone: Comment on above: Reference Range: 11. 5 - 14.5 Hematocrit (Bld) [Volume fraction] 41.0 % See Below [facility] Work Phone: Comment on above: Reference Range: 36. 0 - 46.0 Hemoglobin (Bld) [Mass/Vol] 13.9 g/dL See Below [facility] Work Phone: Comment on above: Reference Range: 12. 0 - 16.0 Lymphocytes/100 WBC (Bld) 32.5 % See Below [facility] Work Phone: Comment on above: Reference Range: 13. 0 - 44.0 MCHC (RBC) [Mass/Vol] 33.8 g/dL See Below [facility] Work Phone: Comment on above: Reference Range: 32. 0 - 36.0 MCV (RBC) [Entitic vol] 92 fL 80 - 100 [facility] Work Phone: Monocytes/100 WBC (Bld) 5.6 % 2.0 - 10.0 [facility] Work Phone: Neutrophils/100 WBC (Bld) 61.0 % See Below [facility] Work Phone: Comment on above: Reference Range: 40. 0 - 80.0 Platelets (Bld) [#/Vol] 270 10*3/uL 150 - 450 [facility] Work Phone: RBC (Bld) [#/Vol] 4.49 {x10E12/L} See Below [facility] Work Phone: Comment on above: Reference Range: 4.0 0 - 5.20 WBC (Bld) [#/Vol] 5.1 10*3/uL 4.4 - 11.3 [facility] Work Phone: Complete Blood Count + Differential 0.00 {x10E9/L} See Below [facility] Work Phone: Comment on above: Reference Range: 0.0 0 - 0.10 Reference Range: 0.0 0 - 0.70 Complete Blood Count + Differential 0.30 {x10E9/L} See Below [facility] Work Phone: Comment on above: Reference Range: 0.1 0 - 1.00 Complete Blood Count + Differential 1.60 {x10E9/L} See Below [facility] Work Phone: Comment on above: Reference Range: 1.2 0 - 4.80 Complete Blood Count + Differential 3.10 {x10E9/L} See Below [facility] Work Phone: Comment on above: Reference Range: 1.2 0 - 7.70 Percent differential counts (%) should be interpreted in the context of the absolute cell counts (cells/L). Complete Blood Count + Differential 0.5 % 0.0 - 6.0 [facility] Work Phone: Complete Blood Count + Differential 0.1 {/100_WBC} [facility] Work Phone: LIPID PANEL (CORONARY RISK 2 )on 06-25-2022 Cholesterol [Mass/Vol] 147 mg/dL Normal 0 - 199 [facility] Comment on above: Result Comment: . AGE DESIRABLE BORDERLINE HIGH HIGH 0-19 Y 0 - 169 170 - 199 >/= 200 20-24 Y 0 - 189 190 - 224 >/= 225 >24 Y 0 - 199 200 - 239 >/= 240 All ranges are based on fasting samples. Specific therapeutic targets will vary based on patient-specific cardiac risk. . Pediatric guidelines reference:Pediatrics 2011, 128(S5). Adult guidelines reference: NCEP ATPIII Guidelines, SAIRA 2001, 258:2486-97 . Venipuncture immediately after or during the administration of Metamizole may lead to falsely low results. Testing should be performed immediately prior to Metamizole dosing. Performed By: #### L IPID #### [address] [address] Cholesterol in HDL [Mass/Vol] 54.0 mg/dL Normal [facility] Comment on above: Result Comment: . AGE VERY LOW LOW NORMAL HIGH 0-19 Y < 35 < 40 40-45 ---- 20-24 Y ---- < 40 >45 ---- >24 Y ---- < 40 40-60 >60 . Performed By: #### L IPID #### [address] [address] Cholesterol in LDL [Mass/Vol] 78 mg/dL Normal 0 - 99 [facility] Comment on above: Result Comment: . NEAR BORD AGE DESIRABLE OPTIMAL HIGH HIGH VERY HIGH 0-19 Y 0 - 109 --- 110-129 >/= 130 ---- 20-24 Y 0 - 119 --- 120-159 >/= 160 ---- >24 Y 0 - 99 100-129 130-159 160-189 >/=190 . Performed By: #### L IPID #### [address] [address] Cholesterol in VLDL [Mass/Vol] 15 mg/dL Normal 0 - 40 [facility] Comment on above: Performed By: #### L IPID #### [address] [address] Cholesterol.total/C holesterol in HDL [Mass ratio] 2.7 {ratio} Normal [facility] Comment on above: Result Comment: REF VALUES DESIRABLE < 3.4 HIGH RISK > 5.0 Performed By: #### L IPID #### [address] [address] Triglyceride [Mass/Vol] 77 mg/dL Normal 0 - 149 [facility] Comment on above: Result Comment: . AGE DESIRABLE BORDERLINE HIGH HIGH VERY HIGH 0 D-90 D 19 - 174 ---- ---- ---- 91 D- 9 Y 0 - 74 75 - 99 >/= 100 ---- 10-19 Y 0 - 89 90 - 129 >/= 130 ---- 20-24 Y 0 - 114 115 - 149 >/= 150 ---- >24 Y 0 - 149 150 - 199 200- 499 >/= 500 . Venipuncture immediately after or during the administration of Metamizole may lead to falsely low results. Testing should be performed immediately prior to Metamizole dosing. Performed By: #### L IPID #### [id number] Laboratory - Chemistry and C hemistry - challengeon 06-25-2022 Albumin BCP dye [Mass/Vol] 4.3 g/dL 3.4 - 5.0 [facility] Work Phone: ALP [Catalytic activity/Vol] 29 U/L below low threshold 33 - 110 [facility] Work Phone: ALT With P-5'-P [Catalytic activity/Vol] 22 U/L 7 - 45 [facility] Work Phone: Comment on above: Patients treated wit h Sulfasalazine may generate falsely decreased results for ALT. Anion gap [Moles/Vol] 11 mmol/L 10 - 20 [facility] Work Phone: AST With P-5'-P [Catalytic activity/Vol] 22 U/L 9 - 39 [facility] Work Phone: Bilirubin [Mass/Vol] 0.6 mg/dL 0.0 - 1.2 [facility] Work Phone: Calcium [Mass/Vol] 9.5 mg/dL 8.6 - 10.3 [facility] Work Phone: Chloride [Moles/Vol] 107 mmol/L 98 - 107 [facility] Work Phone: CO2 [Moles/Vol] 24 mmol/L 21 - 32 [facility] Work Phone: Creatinine [Mass/Vol] 0.69 mg/dL See Below [facility] Work Phone: Comment on above: Reference Range: 0.5 0 - 1.05 Glucose [Mass/Vol] 91 mg/dL 74 - 99 [facility] Work Phone: Potassium [Moles/Vol] 3.7 mmol/L 3.5 - 5.3 [facility] Work Phone: Protein [Mass/Vol] 7.0 g/dL 6.4 - 8.2 [facility] Work Phone: Sodium [Moles/Vol] 138 mmol/L 136 - 145 [facility] Work Phone: Urea nitrogen [Mass/Vol] 13 mg/dL 6 - 23 [facility] Work Phone: Lipid Panelon 06-25-2022 Cholesterol [Mass/Vol] 147 mg/dL 0 - 199 [facility] Work Phone: Comment on above: . AGE DESIRABLE BORD CHARLI HIGH HIGH 0-19 Y 0 - 169 170 - 199 >/= 200 20-24 Y 0 - 189 190 - 224 >/= 225 >24 Y 0 - 199 200 - 239 >/= 240 All ranges are based on fasting samples. Specific therapeutic targets will vary based on patient-specific cardiac risk.. Pediatric guidelines reference:Pediatrics 2011, 128(S5). Adult guidelines reference: NCEP ATPIII Guidelines, SAIRA 2001, 258:2486-97. Venipuncture immediately after or during the administration of Metamizole may lead to falsely low results. Testing should be performed immediately prior to Metamizole dosing. Cholesterol in HDL [Mass/Vol] 54.0 mg/dL [facility] Work Phone: Comment on above: . AGE VERY LOW LOW N ORMAL HIGH 0-19 Y < 35 < 40 40-45 ---- 20- 24 Y ---- < 40 >45 ---- >24 Y ---- < 40 40-60 >60. Cholesterol in LDL [Mass/Vol] 78 mg/dL 0 - 99 [facility] Work Phone: Comment on above: . NEAR BORD AGE SUL[place] RABLE OPTIMAL HIGH HIGH VERY HIGH 0-19 Y 0 - 109 --- 110-129 >/= 130 ---- 20-24 Y 0 - 119 --- 120-159 >/= 160 ---- >24 Y 0 - 99 100-129 130-159 160-189 >/=190. Cholesterol.total/C holesterol in HDL [Mass ratio] 2.7 {ratio} [facility] Work Phone: Comment on above: REF VALUESDESIRABLE < 3.4HIGH RISK > 5.0 Triglyceride [Mass/Vol] 77 mg/dL 0 - 149 [facility] Work Phone: Comment on above: . AGE DESIRABLE BORD CHARLI HIGH HIGH VERY HIGH 0 D-90 D 19 - 174 ---- ---- ----91 D- 9 Y 0 - 74 75 - 99 >/= 100 ---- 10-19 Y 0 - 89 90 - 129 >/= 130 ---- 20-24 Y 0 - 114 115 - 149 >/= 150 ---- >24 Y 0 - 149 150 - 199 200- 499 >/= 500. Venipuncture immediately after or during the administration of Metamizole may lead to falsely low results. Testing should be performed immediately prior to Metamizole dosing. Lipid Panel 15 mg/dL 0 - 40 [facility] Work Phone: No Panel Informationon 06-25 >90 >90 [facility] Work Phone: Comment on above: CALCULATIONS OF DREA MATED GFR ARE PERFORMED USING THE 2020 CKD-EPI STUDY REFIT EQUATION WITHOUT THE RACE VARIABLE FOR THE IDMS-TRACEABLE CREATININE METHODS.https://jasn.asnjournals.org/content//ASN. 1416268745 Office Visit (Internal Medic ine)on 06-25-2022 Follow-up visit Diagnoses/Problems Health Maintenance/Risks Encounter for preventive health examination (V70.0) (Z00.00) Assessed Screening for lipid disorders (V77.91) (Z13.220) Orders FamHx: Family history of other specified malignant neoplasm Vitamin D 25-Hydroxy; Status:Resulted - Requires Verification; Done: 25Jun2022 12:18PM Performed:[facility]; Due:23Sep2022;Ordered; For:FamHx: Family history of other specified malignant neoplasm; Ordered By:Christophe Marinelli; Health Maintenance Complete Blood Count + Differential; Status:Resulted - Requires Verification; Done: 25Jun2022 12:18PM Performed:[facility]; Due:23Sep2022;Ordered; For:Health Maintenance; Ordered By:Christophe Marinelli; Comprehensive Metabolic Panel; Status:Resulted - Requires Verification; Done: 25Jun2022 12:18PM Performed:[facility]; Due:23Sep2022;Ordered; For:Health Maintenance; Ordered By:Christophe Marinelli; Screening for lipid disorders Lipid Panel; Status:Resulted - Requires Verification; Done: 25Jun2022 12:18PM Performed:[facility]; Due:23Sep2022;Ordered; For:Screening for lipid disorders; Ordered By:Christophe Marinelli; Provider Impressions Immunizations: Influenza Vaccine: 2020 Prevnar 13 Vaccine: n/a Pneumovax 23 Vaccine: n/a Shingrix Vaccine:" n/a COVID 2 plus booster Health Maintenance: Breast Cancer screenin Bone Density: n/a Cervical Cancer Screenin/21 , will be seeing [facility] [place] Colon Cancer n/a 1. Will order screening cbc, cmp and lipid and vit d 2. Will be seeing [facility] in [place] to update pap 3. 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 female patient who is here today to establish care. Patient is originally from the [place] area, was living in [place] but came back for her husbands job. Review of Systems Constitutional: not feeling poorly, no fever, no recent weight gain and no recent weight loss. Eyes: no blurred vision and no diplopia. ENT: no hearing loss, no tinnitus, no earache, no sore throat, no hoarseness and no swollen glands in the neck. Cardiovascular: no chest pain, no tightness or heavy pressure, no shortness of breath, no palpitations and no lower extremity edema. Respiratory: no cough, not coughing up sputum and no wheezing that is consistent with asthma. Gastrointestinal: no change in bowel habits, no diarrhea, no constipation, no bloody stools, no nausea, no vomiting, no abdominal pain, no signs and symptoms of ulcer disease, no jolly colored stools and no intolerance to fatty foods. Genitourinary: no urinary frequency, no dysuria, no burning sensation during urination and no hematuria. Musculoskeletal: no arthralgias, no joint stiffness, no muscle weakness, no back pain and no difficulty walking. Skin: no rashes, no change in skin color and pigmentation, no skin lesions and no skin lumps. Neurological: no headaches, no dizziness, no seizures, no tingling, no numbness, no signs and symptoms of stroke and no limb weakness. Psychiatric: no confusion, no memory lapses or loss, no depression and no sleep disturbances. Endocrine: no goiter, no thyroid disorder, no diabetes mellitus, no excessive thirst, no dry skin, no cold intolerance, no heat intolerance and no increased urinary frequency. Hematologic/Lymphatic: is not slow to heal, does not bleed easily, does not bruise easily, no thrombophlebitis, no anemia and no history of blood transfusion. All other systems have been reviewed and are negative for complaint. Active Problems Problems Contraception management (V25.9) (Z30.9) Migraines (346.90) (G43.909) Seasonal allergies (477.9) (J30.2) Past Medical History Problems No pertinent past medical history (V49.89) (Z78.9) Surgical History Problems History of Breast biopsy 2014- normal Family History Mother Family history of other specified malignant neoplasm (V16.8) (Z80.8) dx in her 50s Father Family history of hyperlipidemia (V18.19) (Z83.438) Maternal Grandmother Family history of lung cancer (V16.1) (Z80.1) Family history of scleroderma (V19.8) (Z82.69) Paternal Grandfather Family history of myocardial infarction (V17.3) (Z82.49) Maternal Aunt Family history of malignant neoplasm of breast (V16.3) (Z80.3) Other Family history of hyperlipidemia (V18.19) (Z83.438) Family history of osteopenia (V17.89) (Z82.69) Family history of other specified malignant neoplasm (V16.8) (Z80.8) dx in her 50s Family history of Vitamin D deficiency Social History Problems Consumes alcohol weekly (V49.89) (Z78.9) Consumes caffeine from carbonated beverages (V49.89) (Z78.9) Daily caffeinated coffee consumption Drinks caffeinated tea No illicit drug use Non-smoker (V49.89) (Z78.9) Allergies Medication Penicillins Recor (more content not included)... Normal CPUsage VITAMIN D, 25-HYDROXYon VITAMIN D, 25-HYDROXY 28 ng/mL Abnormal [facility] Comment on above: Result Comment: . DEFICIENCY: < 20 NG/ML INSUFFICIENCY: 20-29 NG/ML SUFFICIENCY: 30-100 NG/ML THIS ASSAY ACCURATELY QUANTIFIES THE SUM OF VITAMIN D3, 25-HYDROXY AND VIT D2,25-HYDROXY. Performed By: #### V TDOH #### [address] [address] Vitamin D 25-Hydroxyon 06-25 25-hydroxyvitamin D3 [Mass/Vol] 28 ng/mL Abnormal [facility] Work Phone: Comment on above: .DEFICIENCY: < 20 NG /MLINSUFFICIENCY: 20-29 NG/MLSUFFICIENCY: 30-100 NG/MLTHIS ASSAY ACCURATELY QUANTIFIES THE SUM OFVITAMIN D3, 25-HYDROXY AND VIT D2,25-HYDROXY. Vital Signs Date Time Vital Sign Value Performing Clinician Facility 08-03-2025 11:19-0400 Body height 171.5 cm Johanny Gupta MD Work Phone: [facility] 08-03-2025 11:19-0400 Body mass index (BMI) [Ratio] 23.3 kg/m2 Johanny Gupta MD Work Phone: [facility] 08-03-2025 11:19-0400 Body weight 68.49 kg Johanny Gupta MD Work Phone: [facility] 08-03-2025 11:19-0400 Diastolic blood pressure 70 mm[Hg] Johanny Gupta MD Work Phone: [facility] 08-03-2025 11:19-0400 Systolic blood pressure 110 mm[Hg] Johanny Gupta MD Work Phone: [facility] 06-28-2025 09:12-0400 Body height 170.2 cm Debbie Mak MD Work Phone: [facility] 06-28-2025 09:12-0400 Body mass index (BMI) [Ratio] 23.01 kg/m2 Debbie Mak MD Work Phone: [facility] 06-28-2025 09:12-0400 Body weight 66.63 kg Debbie Mak MD Work Phone: [facility] 06-28-2025 09:12-0400 Diastolic blood pressure 56 mm[Hg] Debbie Mak MD Work Phone: [facility] 06-28-2025 09:12-0400 Heart rate 77 /min Debbie Mak MD Work Phone: [facility] 06-28-2025 09:12-0400 Systolic blood pressure 94 mm[Hg] Debbie Mak MD Work Phone: [facility] 05-03-2025 08:52-0400 Body height 170.2 cm Debbie Mak MD Work Phone: [facility] 05-03-2025 08:52-0400 Body mass index (BMI) [Ratio] 23.34 kg/m2 Debbie Mak MD Work Phone: [facility] 05-03-2025 08:52-0400 Body weight 67.59 kg Debbie Mak MD Work Phone: [facility] 05-03-2025 08:52-0400 Diastolic blood pressure 70 mm[Hg] Debbie Mak MD Work Phone: [facility] 05-03-2025 08:52-0400 Heart rate 86 /min Debbie Mak MD Work Phone: [facility] 05-03-2025 08:52-0400 Systolic blood pressure 103 mm[Hg] Debbie Mak MD Work Phone: [facility] 04-07-2025 09:10-0400 Diastolic blood pressure 90 mm[Hg] [address] 04-07-2025 09:10-0400 Heart rate 89 /min [address] 04-07-2025 09:10-0400 Respiratory rate 16 /min [address] 04-07-2025 09:10-0400 SaO2% (BldA) [Mass fraction] 98 % [address] 04-07-2025 09:10-0400 Systolic blood pressure 127 mm[Hg] [address] 04-07-2025 08:25-0400 Body temperature 97.9 [degF] [address] 04-07-2025 07:22-0400 Body height 170.[address] 04-07-2025 07:22-0400 Body mass index (BMI) [Ratio] 23.27 kg/m2 [address] 04-07-2025 07:22-0400 Body weight 67.[address] 02-28-2025 10:05-0400 Body height 170.2 cm Debbie Mak MD Work Phone: 9(196)248-984411 [place] [address] 02-28-2025 10:05-0400 Body mass index (BMI) [Ratio] 23.65 kg/m2 Debbie Mak MD Work Phone: 2(868)658-523111 [place] [address] 02-28-2025 10:05-0400 Body weight 68.49 kg Debbie Mak MD Work Phone: 0(806)213-175279 [place] [address] 02-28-2025 10:05-0400 Diastolic blood pressure 80 mm[Hg] Debbie Mak MD Work Phone: 4(708)270-672937 [address] 02-28-2025 10:05-0400 Heart rate 105 /min Debbie Mak MD Work Phone: 8(919)272-301379 [place] [address] 02-28-2025 10:05-0400 Systolic blood pressure 122 mm[Hg] Debbie Mak MD Work Phone: 3(724)235-551879 [place] [address] 02-02-2025 08:29-0400 Body height 170.2 cm Debbie Mak MD Work Phone: 6(967)921-869479 [place] [address] 02-02-2025 08:29-0400 Body mass index (BMI) [Ratio] 23.76 kg/m2 Debbie Mak MD Work Phone: 2(561)850-352479 [place] [address] 02-02-2025 08:29-0400 Body weight 68.81 kg Debbie Mak MD Work Phone: 5(692)509-850779 [place] [address] 02-02-2025 08:29-0400 Diastolic blood pressure 77 mm[Hg] Debbie Mak MD Work Phone: 4(369)324-319179 [place] [address] 02-02-2025 08:29-0400 Heart rate 109 /min Debbie Mak MD Work Phone: 1(938)517-106611 [place] [address] 02-02-2025 08:29-0400 SaO2% (BldA) [Mass fraction] 97 % Debbie Mak MD Work Phone: 1(374)064-130711 [place] [address] 02-02-2025 08:29-0400 Systolic blood pressure 112 mm[Hg] Debibe Mak MD Work Phone: [facility] 01-14-2025 09:55-0500 Body height 170.2 cm Kelly Yang MD Work Phone: [facility] 01-14-2025 09:55-0500 Body mass index (BMI) [Ratio] 22.96 kg/m2 Kelly Yang MD Work Phone: [facility] 01-14-2025 09:55-0500 Body weight 66.5 kg Kelly Yang MD Work Phone: [facility] 01-14-2025 09:55-0500 Diastolic blood pressure 74 mm[Hg] Kelly Yang MD Work Phone: [facility] 01-14-2025 09:55-0500 Heart rate 116 /min Kelly Yang MD Work Phone: [facility] 01-14-2025 09:55-0500 Systolic blood pressure 110 mm[Hg] Kelly Yang MD Work Phone: [facility] 12-30-2024 18:35-0500 Diastolic blood pressure 89 mm[Hg] Rolando Wu MD Work Phone: [facility] 12-30-2024 18:35-0500 Heart rate 92 /min Rolando Wu MD Work Phone: [facility] 12-30-2024 18:35-0500 Respiratory rate 15 /min Rolando Wu MD Work Phone: [facility] 12-30-2024 18:35-0500 SaO2% (BldA) [Mass fraction] 99 % Rolando Wu MD Work Phone: [facility] 12-30-2024 18:35-0500 Systolic blood pressure 127 mm[Hg] Rolando Wu MD Work Phone: [facility] 12-30-2024 17:25-0500 Body temperature 98.6 [degF] Rolando Wu MD Work Phone: [facility] 12-29-2024 20:35-0500 Body height 170.2 cm Rolando Wu MD Work Phone: [facility] 12-29-2024 20:35-0500 Body mass index (BMI) [Ratio] 22.71 kg/m2 Rolando Wu MD Work Phone: [facility] 12-29-2024 20:35-0500 Body weight 65.77 kg Rolando Wu MD Work Phone: [facility] 07-02-2024 11:33-0400 Body height 170.2 cm Johanny Gupta MD Work Phone: [facility] 07-02-2024 11:33-0400 Body mass index (BMI) [Ratio] 23.18 kg/m2 Johanny Gupta MD Work Phone: [facility] 07-02-2024 11:33-0400 Body weight 67.13 kg Johanny uGpta MD Work Phone: [facility] 07-02-2024 11:33-0400 Diastolic blood pressure 68 mm[Hg] Johanny Gupta MD Work Phone: [facility] 07-02-2024 11:33-0400 Systolic blood pressure 110 mm[Hg] Johanny Gupta MD Work Phone: [facility] 07-02-2023 09:17-0400 Body height 170.2 cm Johanny Gupta MD Work Phone: [facility] 07-02-2023 09:17-0400 Body weight 64.86 kg Johanny Gupta MD Work Phone: [facility] 07-02-2023 09:17-0400 Diastolic blood pressure 60 mm[Hg] Johanny Gupta MD Work Phone: [facility] 07-02-2023 09:17-0400 Systolic blood pressure 104 mm[Hg] Johanny Gupta MD Work Phone: [facility] 07-02-2022 09:16-0400 Body height 171.5 cm Johanny Gupta MD Work Phone: [facility] 07-02-2022 09:16-0400 Body weight 62.14 kg Johanny Gupta MD Work Phone: [facility] 07-02-2022 09:16-0400 Diastolic blood pressure 60 mm[Hg] Johanny Gupta MD Work Phone: [facility] 07-02-2022 09:16-0400 Systolic blood pressure 100 mm[Hg] Johanny Gupta MD Work Phone: [facility] 06-25-2022 11:20-0400 Body height 170.18 cm Christophe L Oberhauser Work Phone: [facility] Work Phone: 06-25-2022 11:20-0400 Body mass index (BMI) [Ratio] 20.67 kg/m2 Christophe L Oberhauser Work Phone: [facility] Work Phone: 06-25-2022 11:20-0400 Body surface area Derived from formula 1.69 m2 Christophe L Oberhauser Work Phone: [facility] Work Phone: 06-25-2022 11:20-0400 Body weight 59.88 kg Christophe L Oberhauser Work Phone: [facility] Work Phone: 06-25-2022 11:20-0400 Diastolic blood pressure 81 mm[Hg] Christophe L Oberhauser Work Phone: [facility] Work Phone: 06-25-2022 11:20-0400 Heart rate 132 /min Christophe Marinelli Work Phone: [facility] Work Phone: 06-25-2022 11:20-0400 Systolic blood pressure 117 mm[Hg] Christophe Marinelli Work Phone: [facility] Work Phone: Encounters Encounter Date Encounter Type Care Provider Facility Start: 09-22-2025 ambulatory Johanny Noland Facility:[facility] Start: 09-21-2025 Encounter for other preprocedural examination Johanny Noland [facility] Start: 09-14-2025 End: 09-14-2025 ambulatory JOHANNY GUPTA Facility:[facility] Start: 09-14-2025 Encounter for other preprocedural examination JOHANNY GUPTA [facility] Start: 08-03-2025 End: 08-03-2025 Patient encounter procedure Johanny Gupta MD Work Phone: OB/Gynecology Comment on above: Encounter for gyneco logical examination (general) (routine) without abnormal findings (Primary Dx); Need for prophylactic vaccination/inoculation against viral disease Start: 08-03-2025 End: 08-03-2025 Patient encounter status Johanny Gupta MD Work Phone: [facility] Start: 08-03-2025 End: 08-03-2025 ambulatory JOHANNY GUPTA Facility:[facility] Start: 08-03-2025 Encounter for gynecological examination (general) (routine) without abnormal findings JOHANNY GUPTA [facility] Start: 07-30-2025 End: 08-01-2025 Refill Johanny Gupta MD Work Phone: OB/Gynecology Comment on above: Refill Request Start: 06-28-2025 End: 06-28-2025 Office outpatient visit 25 minutes Debbie Mak MD Work Phone: [facility] Comment on above: Chronic constipation (Primary Dx); Chronic fatigue; Anal skin tag Start: 06-28-2025 End: 06-28-2025 ambulatory [facility] Start: 05-03-2025 End: 05-03-2025 [facility] Start: 05-03-2025 End: 05-03-2025 Office outpatient visit 25 minutes Debbie Mak MD Work Phone: [facility] Comment on above: Blood in stool (Prim ro Dx); Hyperplastic polyp of transverse colon Start: 04-07-2025 End: 04-07-2025 Subsequent hospital visit by physician Ryan Corbin MD Work Phone: [facility] [place] Comment on above: Constipation, unspec ified constipation type; Blood in stool Start: 04-07-2025 End: 04-07-2025 [facility] Start: 02-28-2025 End: 02-28-2025 Office outpatient visit 25 minutes Debbie Mak MD Work Phone: [facility] Comment on above: Blood in stool (Prim ro Dx); Constipation, unspecified constipation type; Chronic migraine without aura without status migrainosus, not intractable Start: 02-28-2025 End: 02-28-2025 [facility] Start: 02-02-2025 End: 02-02-2025 Office outpatient new 45 minutes Debbie Mak MD Work Phone: [facility] Comment on above: Chronic migraine wit hout aura without status migrainosus, not intractable (Primary Dx); Constipation, unspecified constipation type; Hyponatremia; Screening for hyperlipidemia; Leukocytosis, unspecified type; Vitamin D deficiency; History of appendectomy Start: 02-02-2025 End: 02-02-2025 ambulatory [facility] Start: 01-14-2025 End: 01-14-2025 Postop follow up visit related to original px Kelly Yang MD Work Phone: [facility] Comment on above: Acute appendicitis w ith localized peritonitis, without perforation, abscess, or gangrene (Primary Dx) Start: 01-14-2025 End: 01-14-2025 [facility] Start: 12-30-2024 ambulatory KELLY YANG [facility] Start: 12-29-2024 End: 12-30-2024 ambulatory [facility] Start: 12-29-2024 End: 12-30-2024 Emergency department patient visit Rolando Wu MD Work Phone: [facility] [place] Comment on above: Acute appendicitis w ith localized peritonitis, without perforation, abscess, or gangrene (Primary Dx) Start: 07-02-2024 End: 07-02-2024 Patient encounter procedure Johanny Gupta MD Work Phone: OB/Gynecology Comment on above: Encounter for gyneco logical examination (general) (routine) without abnormal findings (Primary Dx); Surveillance for control, oral contraceptives Start: 07-02-2024 End: 07-02-2024 Patient encounter status Johanny Gupta MD Work Phone: [facility] Start: 06-20-2024 Refill Johanny Gupta MD Work Phone: OB/Gynecology Comment on above: Refill Request Start: 01-16-2024 Refill Johanny Gupta MD Work Phone: OB/Gynecology Comment on above: Refill Request; Refi ll Request Start: 07-02-2023 End: 07-02-2023 Patient encounter procedure Johanny Gupta MD Work Phone: OB/Gynecology Comment on above: Encounter for gyneco logical examination (general) (routine) without abnormal findings (Primary Dx); Other specified dyspareunia Start: 07-02-2023 End: 07-02-2023 Patient encounter status Johanny Gupta MD Work Phone: [facility] Start: 06-24-2023 End: 02-02-2025 Patient encounter status Rolando Wu MD Work Phone: [facility] Work Phone: Start: 06-24-2023 End: 06-25-2023 ambulatory CHRISTOPHE Lacy [facility] Start: 06-24-2023 End: 06-25-2023 Encounter for general adult medical examination without abnormal findings CHRISTOPHE Lacy [facility] Start: 02-03-2023 Refill Jose Gastelum Work Phone: OB/Gynecology Comment on above: Refill Request Start: 12-12-2022 ambulatory Johanny Gupta MD Work Phone: OB/Gynecology Comment on above: Medication to pharma cy Start: 07-11-2022 ambulatory Johanny Gupta MD Work Phone: [facility] Start: 07-11-2022 Manual pelvic examination Olga Gupta MD Work Phone: OB/Gynecology Comment on above: Pelvic ultrasound re sults Start: 07-09-2022 End: 07-09-2022 Patient encounter procedure Evette Angeles MD Work Phone: OB/Gynecology Comment on above: Pelvic pain in femal e (Primary Dx) Start: 07-02-2022 End: 07-02-2022 Patient encounter procedure Johanny Gupta MD Work Phone: OB/Gynecology Comment on above: Encounter for gyneco logical examination with abnormal finding (Primary Dx); Screening for cervical cancer; Encounter for screening for human papillomavirus (HPV); Pelvic pain in female; Adnexal fullness Start: 07-02-2022 End: 07-02-2022 Patient encounter status Johanny Gupta MD Work Phone: OB/Gynecology Start: 06-26-2022 AUDIT Christophe Hinton user Work Phone: [facility] Work Phone: Start: 06-25-2022 Office outpatient ne w 45 minutes Christophe Lacy Ever Work Phone: [facility] Work Phone: Procedures Date Procedure Procedure Detail Performing Clinician Start: 04-07-2025 Colsc flx w/removal lesion by hot bx forceps Debbie Mak MD Work Phone: Start: 04-07-2025 Level iv surg pathol ogy gross&microscopic exam Ryan Corbin MD Work Phone: Start: 04-07-2025 PULSE OXIMETRY, SPOT Me delmi Corbin MD Work Phone: Start: 04-07-2025 Colonoscopy Debbie nguyễn MD Work Phone: Start: 02-23-2025 Lipid 1996 panel - S radha or Plasma Debbie Mak MD Work Phone: Start: 02-02-2025 History of appendectomy History of a ppendectomy Debbie Mak MD Work Phone: Start: 12-30-2024 PULSE OXIMETRY, CONTINUOUS Sheldon Landrum MD Work Phone: Start: 12-29-2024 Ct abdomen & pelvis w/contrast material Marly Caba PRESALES CONSULTANT-DORMITORY COUNSELOR Work Phone: Start: 12-29-2024 Urinalysis microscop ic panel - Urine Qualitative by Automated Marly Caba PRESALES CONSULTANT-DORMITORY COUNSELOR Work Phone: Start: 12-29-2024 Urine test visual color cmprsn meths Marly Caba PRESALES CONSULTANT-DORMITORY COUNSELOR Work Phone: Start: 12-29-2024 Urnls dip stick/tabl et reagent auto microscopy Marly Caba PRESALES CONSULTANT-DORMITORY COUNSELOR Work Phone: Start: 12-29-2024 Comprehensive metabo lic panel Marly Caba PRESALES CONSULTANT-DORMITORY COUNSELOR Work Phone: Start: 06-24-2023 CBC W Auto Different ial panel - Blood CHRISTOPHE MARINELLI Start: 06-24-2023 Comprehensive metabo lic 2000 panel - Serum or Plasma CHRISTOPHE MARINELLI Start: 06-24-2023 Lipid panel CHRISTOPHE POLANCO Start: 06-24-2023 VITAMIN D 25-HYDROXY,TOTAL CHRISTOPHE MARINELLI Start: 06-24-2023 Lipid 1996 panel - S radha or Plasma Rolando Wu MD Work Phone: Start: 07-02-2022 Microscopic observat ion [Identifier] in Cervix by Cyto stain Rolando Wu MD Work Phone: Biopsy of breast Christophe Lacy Joeyluli lugomeera Work Phone: Comment on above: 2015- normal; Plan of Treatment Date Care Activity Detail Author Start: 2039 Zoster Vaccines (1 of 2) Zoster Vaccines (1 of 2) [facility] Start: 04-06-2030 Screening for malignant neoplasm of colon [facility] Start: 02-23-2030 Lipid panel Lipid Panel [facility] Start: 06-24-2028 Lipid panel Lipid Panel [facility] Start: 07-02-2027 HPV TESTING HPV TESTING [facility] Start: 07-02-2027 PAP TESTING PAP TESTING [facility] Start: 07-02-2027 Screening for malignant neoplasm of cervix [facility] Start: 01-30-2026 9vhpv vacc 2/3 dose sched im use HPV VACCINE, 9-VALENT (GARDASIL 9) Immunization/Injection Routine Need for prophylactic vaccination/inoculation against viral disease Expected: 01/30/2026 (Approximate) [facility] Comment on above: Expected: 01/30/2026 (Approximate) Start: 12-29-2025 Diabetes mellitus screening Diabetes Screening [facility] Start: 10-03-2025 End: 10-03-2025 Nursing evaluation of patient and report 10/03/2025 4:00 PM EST Nurse Visit OB/Gynecology [address] [place] [address] Wstr, Nurse Oil 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 [facility] [address] [place] [address] Gardasil #2 OB/Gynecology Comment on above: Gardasil #2 Start: 10-02-2025 9vhpv vacc 2/3 dose sched im use HPV VACCINE, 9-VALENT (GARDASIL 9) Immunization/Injection Routine Need for prophylactic vaccination/inoculation against viral disease Expected: 10/02/2025 (Approximate) [facility] Comment on above: Expected: 10/02/2025 (Approximate) Start: 08-31-2025 HPV Vaccine (2 - 3-dose SCDM series) HPV Vaccine (2 - 3-dose SCDM series) [facility] Start: 08-03-2025 End: 08-03-2025 Patient encounter procedure 08/03/2025 11:20 AM EDT Of fice Visit OB/Gynecology [address] [place] [address] Johanny Fiore MD [address] [place] [address] Annual (R/S from provider out on 07/04) OB/Gynecology Comment on above: Annual (R/S from provider out on 07/04) Start: 08-01-2025 End: 08-01-2025 Patient encounter procedure 08/01/2025 9:00 AM EDT Off ice Visit [facility] [address] [place] [phone] Debbie Mak MD [address] [place] [address] [facility] Start: 07-18-2025 Influenza vaccination [facility] Start: 07-14-2025 End: 07-14-2025 Patient encounter procedure 07/14/2025 8:10 AM EDT Appointment [facility] [address] [facility] [address] [place] [id number] [phone] Ryan Corbin MD [address] [place] [address] [facility] Start: 07-04-2025 End: 07-04-2025 Patient encounter procedure 07/04/2025 4:00 PM EDT Off ice Visit OB/Gynecology [address] [place], [place] [id number] Johanny Fiore MD [address] [place], [place] [id number] Annual OB/Gynecology Comment on above: Annual Start: 07-02-2025 Screening for malignant neoplasm of cervix [facility] Start: 06-28-2025 End: 06-28-2026 TSH with reflex to Free T4 if abnormal TSH with reflex to Free T4 if abnormal Lab Routine Chronic fatigue Chronic constipation Expected: 06/28/2025 (Approximate), Expires: 06/28/2026 [facility] Service Area Work Phone: Comment on above: Expected: 06/28/2025 (Approximate), Expi res: 06/28/2026 Start: 06-28-2025 End: 06-28-2025 Patient encounter procedure 06/28/2025 8:00 AM EDT Off ice Visit [facility] [address] [place] [address] Christophe Marinelli, [address] [facility] [place] [address] [facility] Start: 06-25-2025 Yearly Adult Physical Yearly Adult Physical [facility] Start: 05-31-2025 End: 05-31-2025 Patient encounter procedure 05/31/2025 9:45 AM EDT Off ice Visit [facility] [address] [place] [address] Debbie Mak MD [address] [place] [address] [facility] Start: 05-03-2025 End: 05-03-2026 Esophagogastroduodenoscopy Esophagogastroduodenoscopy (EGD) Endoscopy Routine Blood in stool Expected: 05/03/2025 (Approximate), Expires: 05/03/2026 [facility] Service Area Work Phone: Comment on above: Expected: 05/03/2025 (Approximate), Expi res: 05/03/2026 Start: 05-02-2025 End: 05-02-2025 Patient encounter procedure 05/02/2025 9:00 AM EDT Off ice Visit [facility] [address] [place] [address] Debbie Mak MD [address] [place] [address] [facility] Start: 04-07-2025 End: 04-07-2025 Patient encounter procedure 04/07/2025 11:30 AM EDT Appointment [place] [id number] [facility] [place] [address] [phone] Ryan Corbin MD [address] [place] [address] [facility] Start: 02-28-2025 End: 02-28-2026 Colonoscopy study Colonoscopy Diagnostic Endoscopy Routine Constipation, unspecified constipation type Blood in stool Expected: 02/28/2025 (Approximate), Expires: 02/28/2026 [facility] Service Area Work Phone: Comment on above: Expected: 02/28/2025 (Approximate), Expi res: 02/28/2026 Start: 02-21-2025 End: 02-21-2025 Patient encounter procedure 02/21/2025 8:15 AM EDT Off ice Visit [facility] [address] [place] [phone] Debbie Mak MD [address] [place] [address] [facility] Start: 02-02-2025 End: 02-02-2026 25-hydroxyvitamin D3 [Mass/volume] in Serum or Plasma Vitamin D 25-Hydroxy,Total (for eval of Vitamin D levels) Lab Routine Vitamin D deficiency Expected: 02/02/2025 (Approximate), Expires: 02/02/2026 [facility] Work Phone: Comment on above: Expected: 02/02/2025 (Approximate), Expi res: 02/02/2026 Start: 02-02-2025 End: 02-02-2026 CBC W Auto Differential panel - Blood CBC and Auto Differential Lab Routine Leukocytosis, unspecified type Expected: 02/02/2025 (Approximate), Expires: 02/02/2026 [facility] Work Phone: Comment on above: Expected: 02/02/2025 (Approximate), Expi res: 02/02/2026 Start: 02-02-2025 End: 02-02-2026 Comprehensive metabolic 2000 panel - Serum or Plasma Comprehensive Metabolic Panel Lab Routine Hyponatremia Expected: 02/02/2025 (Approximate), Expires: 02/02/2026 [facility] Service Area Work Phone: Comment on above: Expected: 02/02/2025 (Approximate), Expi res: 02/02/2026 Start: 02-02-2025 End: 02-02-2026 Lipid 1996 panel - Serum or Plasma Lipid Panel Lab Routine Screening for hyperlipidemia Expected: 02/02/2025 (Approximate), Expires: 02/02/2026 [facility] Work Phone: Comment on above: Expected: 02/02/2025 (Approximate), Expi res: 02/02/2026 Start: 07-18-2024 Influenza vaccination Influenza Vaccine (#1) [facility] Start: 07-02-2024 End: 07-02-2024 Patient encounter procedure 07/02/2024 11:20 AM EDT Of fice Visit OB/Gynecology [address] [place], [place] [address] Johanny Fiore MD [address] [place], [place] [phone] Annual OB/Gynecology Comment on above: Annual Start: 11-17-2023 Depression Assessment Depression Assessment [facility] Start: 07-18-2023 Covid-19 Vaccine ( season) Covid-19 Vaccine ( season) [facility] Start: 07-18-2023 Influenza vaccination [facility] Start: 06-24-2023 FUV, Provider: Christophe Marinelli, Status: Pen, Time: 10:00 AM FUV, Provider: Christophe Marinelli, Status: Pen, Time: 10:00 AM [facility] Work Phone: Start: 11-17-2022 DEPRESSION ASSESSMENT DEPRESSION ASSESSMENT [facility] Start: 07-18-2022 Influenza vaccination INFLUENZA (#1) [facility] Start: 2019 HPV TESTING HPV TESTING [facility] Start: 2016 HPV Vaccine (1 - 3-dose SCDM series) HPV Vaccine (1 - 3-dose SCDM series) [facility] Start: 2016 HPV Vaccines (1 - 3-dose standard series) HPV Vaccines (1 - 3-dose standard series) [facility] Start: 2011 DTaP/Tdap/Td Vaccines (1 - Tdap) DTaP/Tdap/Td Vaccines (1 - Tdap) [facility] Start: 2010 PAP TESTING PAP TESTING [facility] Start: 2010 Screening for malignant neoplasm of cervix HPV/Cotest [facility] Start: 2008 Hepatitis B Vaccine (1 of 3 - 19+ 3-dose series) Hepatitis B Vaccine (1 of 3 - 19+ 3-dose series) [facility] Start: 2008 Hepatitis B Vaccines (1 of 3 - 19+ 3-dose series) Hepatitis B Vaccines (1 of 3 - 19+ 3-dose series) [facility] Start: 2008 Urine microalbumin profile [facility] Start: 2007 Anxiety Screening Anxiety Screening [facility] Start: 2007 Depression Screening Depression Screening [facility] Start: 2007 Diabetes mellitus screening Diabetes Screening [facility] Start: 2007 HEPATITIS C SCREENING HEPATITIS C SCREENING [facility] Start: 2007 Hepatitis C screening Hepatitis C Screening [facility] Start: 2007 HIV SCREENING HIV SCREENING [facility] Start: 2007 HIV screening HIV Screening [facility] Start: 2002 Varicella vaccination Varicella Vaccines (1 of 2 - 13+ 2-dose series) [facility] Start: 2001 Adult depression screening assessment DEPRESSION SCREENING [facility] Start: 1990 MMR Vaccines (1 of 1 - Standard series) MMR Vaccines (1 of 1 - Standard series) [facility] Start: 06-19-1990 COVID-19 VACCINE (#1) COVID-19 VACCINE (#1) [facility] Start: 1989 HEPATITIS B (1 of 3 - 3-dose series) HEPATITIS B (1 of 3 - 3-dose series) [facility] Start: 1989 Hepatitis B Vaccine (1 of 3 - 3-dose series) Hepatitis B Vaccine (1 of 3 - 3-dose series) [facility] Start: 1989 HIV screening HIV Screening [facility] Start: 1989 Screening for malignant neoplasm of colon [facility] End: 12-29-2024 Bacteria identified in Urine by Culture [facility] Work Phone: Comment on above: Once (Lab) for 1 Occurrences starting until 12/29/2024 End: 12-30-2024 Choriogonadotropin ( test) [Presence] in Urine POCT , urine Point of Care Testing Routine Once (Lab) for 1 Occurrences starting 12/30/2024 until 12/30/2024 [facility] Service Area Work Phone: Comment on above: Once (Lab) for 1 Occurrences starting until 12/30/2024 Electrocardiogram, 1 2-lead PRN ACS symptoms Electrocardiogram, 12-lead PRN ACS symptoms ECG Routine As needed until discontinued starting 12/29/2024 [facility] Work Phone: Comment on above: As needed until discontinued starting End: 12-29-2024 Extra Urine Jarvis Tube Extra Urine Jarvis Tube Lab Timed Once for 1 Occurrences starting 12/29/2024 until 12/29/2024 [facility] Work Phone: Comment on above: Once for 1 Occurrences starting 12/29/19 25 until 12/29/2024 PAP FLUID CERVICAL SCREENING PAP FLUID CERVICAL SCREENING Lab Routine Screening for cervical cancer Encounter for screening for human papillomavirus (HPV) Ordered: 07/02/2022 [facility] Work Phone: Comment on above: Ordered: 07/02/2022 PELVIC US WHI PELVIC US WHI An c Imaging Routine Pelvic pain in female Adnexal fullness Ordered: 07/02/2022 [facility] Work Phone: Comment on above: Ordered: 07/02/2022 Surgical pathology study Surgica l Pathology Exam Pathology and Cytology Routine Acute appendicitis with localized peritonitis, without perforation, abscess, or gangrene Release Upon Ordering for 1 Occurrences starting 12/30/2024 [facility] Work Phone: Comment on above: Release Upon Ordering for 1 Occurrences starting 12/30/2024 Therapeutic prophyla ctic/dx injection subq/im THER/PROPH/DIAG INJ, SC/IM Procedures Routine Need for prophylactic vaccination/inoculation against viral disease Ordered: 08/03/2025 [facility] Work Phone: Comment on above: Ordered: 08/03/2025 End: 12-29-2024 Urinalysis complete W Reflex Culture panel - Urine [facility] Work Phone: Comment on above: STAT (Lab) for 1 Occurrences starting until 12/29/2024 [facility] Immunizations Immunization Date Immunization Notes Care Provider Les nettles 08-03-2025 Human Papillomavirus 9-valent vaccine Johanny Gupta MD Work Phone: [facility] 08-23-2023 influenza, injectabl e, quadrivalent, preservative free Johanny Gupta MD Work Phone: [facility] 08-23-2023 influenza virus vacc ine, unspecified formulation Johanny Gupta MD Work Phone: [facility] 08-23-2022 Moderna COVID-19 vaccine, bivalent, blue cap/jarvis label *Check age/dose* Debbie Mak MD Work Phone: [facility] Payers Date Payer Category Payer Self-pay 2024 [employer] [place] [facility] BLUE CARD PPO OOS [id number] 2024 [place] [facility] [id number] 2024 Unknown [id number] 2021 Private Health Insurance GOSIA SÁNCHEZ OA [id number] 2021-Present [phone] [facility] [id number] [place] [address] Open Access [id number] 2019 Private Health Insurance [id number] 1989 Unknown [id number]. 2.5 1989 Unknown [id number] [id number]. 2.3 1989 Unknown [id number] [id number]. 2.3 1989 Unknown [id number] [id number]. 2.3 1989 Unknown [id number] [id number]. 2.1244 1989 Unknown [id number] [id number]. 2.4 1989 Unknown [id number] [id number]. 2.1244 1989 Unknown [id number] [id number]. 2.4 1989 Unknown [id number] [id number]. 2.1244 Unknown [facility]LY [facility] Unknown [id number] [id number] Social History Date Type Detail Facility Start: 07-02-2023 End: 06-28-2025 Daily caffeinated coffee consumption Daily caffeinated coffee consumption [facility] Work Phone: Start: 07-02-2022 End: 06-24-2023 Tobacco smoking status NHIS Never smoked tobacco [facility] Start: 07-02-2022 End: 06-24-2023 Tobacco use and exposure Smokeless tobacco non-user [facility] Start: 07-02-2022 End: 04-07-2025 Alcohol intake Current drinker of alcohol (finding) [facility] Start: 07-02-2022 History SDOH Alcohol Comment social [facility] Start: 1990 Sex Assigned At Not on file [facility] Start: 06-22-2022 End: 04-07-2025 Exposure to SARS-CoV-2 (event) Not sure [facility] Start: 07-02-2023 End: 06-28-2025 Tobacco use panel [facility] Start: 05-23-2022 End: 10-12-2022 National Score (1-100), lower number is lower risk 87 [facility] Start: 01-14-2025 Alcohol Comment SOCIALLY BEER/ LIQUOR [facility] Work Phone: Start: 04-07-2025 Sexual orientation Heterosexual (finding) [facility] Functional Status Date Assessment Result Facility 06-28-2025 Patient Health Quest ionnaire 2 item (PHQ-2) [Reported] [facility] Work Phone: 06-28-2025 Functional status 94/56 06/28/20 25 9:12 AM Vanessa Aviles MA 94/56 [facility] Work Phone: 06-28-2025 Vital signs 77 06/28/2025 9: 12 AM Vanessa Aviles MA [facility] Work Phone: 05-03-2025 Patient Health Quest ionnaire 2 item (PHQ-2) [Reported] [facility] Work Phone: 04-07-2025 [facility] 04-07-2025 [place] - suicide s everity rating scale screener - recent [C-SSRS] [facility] Work Phone: 04-07-2025 [facility] Work Phone: Mental Status Date Assessment Result Facility 04-07-2025 Cognitive function finding Negat brittany 04/07/2025 9:10 AM EDT Yanira Riley RN Negative [facility] Work Phone: Clinical Notes 07-02-2022 to 08-03-2025 Nikunj Ji MA - 08/03/2025 11:38 AM EDTJohanny Fiore MD - 08/03/2025 11:12 AM EDTPatient InstructionsDebbie Mak MD - 06/28/2025 9:15 AM EDTDischarge InstructionsAttachments Note Date & Type Note Facility 08-03-2025 Note HNO ID: [id number] Author: NIKUNJ JI MA Service: ? Author Type: Staff Physical Therapy Assistant Type: Progress Notes Filed: 08/03/2025 12:00 Note Text: Patient identified by name and date of . Christophe Rich is here for her HPV 9 vaccination, injection # one of the series. Patient ?No Gardasil injection was given without incident. See immunizations for details of immunizations administered today. VIS sheet provided: Yes Patient advised to follow up in 2 months from the 1st injection Provider Estelita was present in office at time of injection. Nikunj Ji MA [facility] 08-03-2025 History of Present illness Narrative Patient identified by name and date of . Christophe Rich is here for her HPV 9 vaccination, injection # one of the series. Patient ?No Gardasil injection was given without incident. See immunizations for details of immunizations administered today. VIS sheet provided: Yes Patient advised to follow up in 2 months from the 1st injection Provider Estelita was present in office at time of injection. Nikunj Ji MA Supervisor Assembling offered: Patient declines. Christophe is a 34 year old who presents for an annual gynecologic exam without complaints. 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 LMP: LMP Unknown, Drug Induced Amenorrhea Age at Menarche: 11 Age at First : Age at Menopause: Keyboard Operator History Comments: Sexual Activity: Yes; Male Contraception: Pill PAST MEDICAL HISTORY Diagnosis Date NEGATIVE MEDICAL HISTORY PAST SURGICAL HISTORY Procedure Laterality Date APPENDECTOMY 12/30/2024 BX OF BREAST; INCISIONAL Right COLONOSCOPY 03/2025 EYE SURGERY HX TONSILLECTOMY & ADENOIDECTOMY <AGE 12 FAMILY HISTORY Problem Relation Age of Onset Skin Cancer Mother Osteoporosis Mother Hyperlipidemia Father Lung Cancer Maternal Grandmother other (scleaderma) Maternal Grandmother other (throat cancer) Maternal Grandfather Skin Cancer Maternal Grandfather other (pacemaker) Paternal Grandmother Heart Attack Paternal Grandfather Breast Cancer Maternal Aunt other (endometriosis) Maternal Aunt SOCIAL HISTORY Social History Tobacco Use Smoking status: Never Smokeless tobacco: Never Vaping Use Vaping status: Never Used Substance Use Topics Alcohol use: Yes Comment: social Drug use: Never REVIEW OF SYSTEMS Abdomen: No abdominal pain, nausea, vomiting, diarrhea, or constipation. No bloating, early satiety, indigestion, or increased flatulence. Bladder: No dysuria, gross hematuria, urinary frequency, urinary urgency, or incontinence. Breast: No breast lumps, nipple d/c, overlying skin changes, redness or skin retraction. Allergies and current medication updated:Yes SENSITIVE EXAM: The sensitive examination was discussed with the Patient or Patient's Authorized Flight Attendant/Inflight Manager. As applicable, any other physician, advance practice provider, medical student, or other health professional student that will be observing or involved in the sensitive examination for educational or training purposes was discussed with the Patient or Authorized Flight Attendant/Inflight Manager. The Patient or Authorized Flight Attendant/Inflight Manager has agreed to proceed with the sensitive examination. (Sensitive examination includes inspection and/or palpation of the breasts, pelvis, prostate and anorectal regions). EXAM: BP 110/70 Ht 5' 7.5" (1.72m) Wt 151 lb (68.5kg) BMI 23.29 kg/(m^2). GENERAL: pleasant, female in no apparent distress HEENT: Normocephalic, atraumatic, mucus membranes moist, and no lesions NECK: Supple, full range of motion, no adenopathy, and thyroid normal DERMATOLOGY: Normal, without lesions, non-icteric, and non-hirsute BREAST: soft, non-tender, symmetric, no dominant mass, normal nipple-areolar complex, no lymphadenopathy, and no nipple discharge CHEST: Normal inspiratory effort ABDOMEN: soft, non-tender, and no masses PELVIC: external genitalia normal, normal Bartholin's glands, urethra, [place]'s glands, no vulvar lesions, no cervical lesions, good vaginal support, physiologic discharge present, normal appearing perineal body and perianal region BIMANUAL: uterus normal size, shape and consistency, no adnexal masses, and non-tender RECTOVAGINAL: deferred. NEURO: alert and oriented x3,exam grossly non-focal EXTREMITIES: normal ASSESSMENT/PLAN: 1) Health maintenance: Pap/HPV up to date. Mammogram starting age 40. Nutrition, exercise and routine health maintenance exams reviewed. Colon cancer screening: up to date with screening, routine at 44 HPV vaccine: ordered today 2) Contraception: combined hormonal contraceptives. Contraceptive options reviewed and information provided.considering salpingectomy - will notify office. 3) STD screening: Declined STI check. 4) Follow up one year or sooner as needed Johanny Noland MD documented in this encounter [facility] 08-03-2025 Instructions Nikunj Ji MA - 08/03/2025 11:38 AM EDT Gardasil Gardasil is a vaccine to protect against Human Papillomavirus (HPV) types 6, 11, 16, 18, 31,33,45, 52, 58. These viruses cause cancer and precancerous lesions on the cervix (opening between vagina and uterus), in the vagina and on the vulva (skin around the outside of the vagina) as well as genital warts. The vaccine cannot cause these diseases and cannot treat them if already present. Gardasil works best if given before contact with HPV. Most people are exposed to HPV soon after starting sexual activity. The vaccine is recommended between the ages of 9 and 45. Gardasil does not protect against all strains of HPV. Women who receive the vaccine still need to have regular pelvic exams and cervical cancer screening with the pap smear. You should ask your doctor if Gardasil is right for you if you have a weakened immune system, a bleeding disorder, plan to become soon or have a current illness causing fever. Gardasil is not recommended for women. You should be sure your doctor is aware of any allergies you have and all medications and herbal supplements you take. Gardasil is given to those ages 9-14 in 2 doses at 0 and 8 months. In ages 15-45, three injections are given at 0,2,6 months. Common side effects include pain, redness, itching and swelling at the injection site, nausea, fever, dizziness and fainting. Rare but potentially serious reactions have been reported. These include allergic reaction, swollen glands, joint and muscle pain, weakness and Guillain-Rozel syndrome. documented in this encounter [facility] 08-03-2025 Note HNO ID: [id number] Author: JOHANNY FIORE MD Service: ? Author Type: Physician Type: Progress Notes Filed: 08/03/2025 12:00 Note Text: Supervisor Assembling offered: Patient declinesSudha Whitehead is a 34 year old who presents for an annual gynecologic exam without complaints. 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 LMP: LMP Unknown, Drug Induced Amenorrhea Age at Menarche: 11 Age at First : Age at Menopause: Keyboard Operator History Comments: Sexual Activity: Yes; Male Contraception: Pill PAST MEDICAL HISTORY Diagnosis Date NEGATIVE MEDICAL HISTORY PAST SURGICAL HISTORY Procedure Laterality Date APPENDECTOMY 12/30/2024 BX OF BREAST; INCISIONAL Right COLONOSCOPY 03/2025 EYE SURGERY HX TONSILLECTOMY AND ADENOIDECTOMY FAMILY HISTORY Problem Relation Age of Onset Skin Cancer Mother Osteoporosis Mother Hyperlipidemia Father Lung Cancer Maternal Grandmother other (scleaderma) Maternal Grandmother other (throat cancer) Maternal Grandfather Skin Cancer Maternal Grandfather other (pacemaker) Paternal Grandmother Heart Attack Paternal Grandfather Breast Cancer Maternal Aunt other (endometriosis) Maternal Aunt SOCIAL HISTORY Social History Tobacco Use Smoking status: Never Smokeless tobacco: Never Vaping Use Vaping status: Never Used Substance Use Topics Alcohol use: Yes Comment: social Drug use: Never REVIEW OF SYSTEMS Abdomen: No abdominal pain, nausea, vomiting, diarrhea, or constipation. No bloating, early satiety, indigestion, or increased flatulence. Bladder: No dysuria, gross hematuria, urinary frequency, urinary urgency, or incontinence. Breast: No breast lumps, nipple d/c, overlying skin changes, redness or skin retraction. Allergies and current medication updated:Yes SENSITIVE EXAM: The sensitive examination was discussed with the Patient or Patient's Authorized Flight Attendant/Inflight Manager. As applicable, any other physician, advance practice provider, medical student, or other health professional student that will be observing or involved in the sensitive examination for educational or training purposes was discussed with the Patient or Authorized Flight Attendant/Inflight Manager. The Patient or Authorized Flight Attendant/Inflight Manager has agreed to proceed with the sensitive examination. (Sensitive examination includes inspection and/or palpation of the breasts, pelvis, prostate and anorectal regions). EXAM: BP 110/70 Ht 5' 7.5" (1.72m) Wt 151 lb (68.5kg) BMI 23.29 kg/(m2). GENERAL: pleasant, female in no apparent distress HEENT: Normocephalic, atraumatic, mucus membranes moist, and no lesions NECK: Supple, full range of motion, no adenopathy, and thyroid normal DERMATOLOGY: Normal, without lesions, non-icteric, and non-hirsute BREAST: soft, non-tender, symmetric, no dominant mass, normal nipple-areolar complex, no lymphadenopathy, and no nipple discharge CHEST: Normal inspiratory effort ABDOMEN: soft, non-tender, and no masses PELVIC: external genitalia normal, normal Bartholin's glands, urethra, [place]'s glands, no vulvar lesions, no cervical lesions, good vaginal support, physiologic discharge present, normal appearing perineal body and perianal region BIMANUAL: uterus normal size, shape and consistency, no adnexal masses, and non-tender RECTOVAGINAL: deferred. NEURO: alert and oriented x3,exam grossly non-focal EXTREMITIES: normal ASSESSMENT/PLAN: 1) Health maintenance: Pap/HPV up to date. Mammogram starting age 40. Nutrition, exercise and routine health maintenance exams reviewed. Colon cancer screening: up to date with screening, routine at 44 HPV vaccine: ordered today 2) Contraception: combined hormonal contraceptives. Contraceptive options reviewed and information provided.considering salpingectomy - will notify office. 3) STD screening: Declined STI check. 4) Follow up one year or sooner as needed Johanny Noland MD [facility] 06-28-2025 History of Present illness Narrative Subjective Patient ID: Christophe Rich is a 34 y.o. female who presents for Follow-up (C/O RECTAL PAIN AND BLEEDING WANTS TO DISCUSS HOW TO GET RID OF HEMORRHOIDS COMPLETELY). HPI RECTAL PAIN / HEMORRHOID ON AND OFF WHICH ACTS UP WITH CONSTIPATION . HAS CHRONIC CONSTIPATION, HIGH FIBER DIET HELPS SOME .FATIGUE . PT WONDERS IF THERE ARE OTHER OPTIONS FOR POSSIBLE HEMORRHOID TX. Review of Systems Constitutional: Positive for fatigue. Negative for chills and fever. HENT: Negative. Negative for congestion, postnasal drip and rhinorrhea. Eyes: Negative. Negative for visual disturbance. Respiratory: Negative for cough, shortness of breath and wheezing. Cardiovascular: Negative. Negative for chest pain, palpitations and leg swelling. Gastrointestinal: Positive for constipation and rectal pain. Negative for abdominal distention, abdominal pain, diarrhea, nausea and vomiting. PER HPI Endocrine: Negative. Genitourinary: Negative for dysuria and urgency. Musculoskeletal: Negative. Negative for back pain. Skin: Negative. Negative for rash. Allergic/Immunologic: Negative for immunocompromised state. Neurological: Negative. Negative for dizziness, weakness, light-headedness and headaches. Psychiatric/Behavioral: Negative. Negative for agitation. Objective Physical Exam Constitutional: General: She is not in acute distress. HENT: Head: Normocephalic. Nose: Nose normal. Mouth/Throat: Mouth: Mucous membranes are moist. Eyes: Conjunctiva/sclera: Conjunctivae normal. Pupils: Pupils are equal, round, and reactive to light. Cardiovascular: Rate and Rhythm: Normal rate and regular rhythm. Pulses: Normal pulses. Heart sounds: Normal heart sounds. Pulmonary: Effort: No respiratory distress. Breath sounds: No wheezing. Chest: Chest wall: No tenderness. Abdominal: General: Abdomen is flat. Bowel sounds are normal. Palpations: Abdomen is soft. Tenderness: There is no abdominal tenderness. Comments: ANAL SKIN TAG HANGING FROM RECTAL AREA, NO VISIBLE HEMORRHOID Genitourinary: Comments: Anal skin tag WITHOUT INFLAMMATION Musculoskeletal: General: No tenderness. Normal range of motion. Cervical back: Normal range of motion. Lymphadenopathy: Cervical: No cervical adenopathy. Skin: General: Skin is warm and dry. Findings: No rash. Neurological: General: No focal deficit present. Mental Status: She is alert. Mental status is at baseline. Psychiatric: Mood and Affect: Mood normal. Behavior: Behavior normal. Assessment/Plan 1. Chronic constipation TSH with reflex to Free T4 if abnormal TSH with reflex to Free T4 if abnormal 2. Chronic fatigue TSH with reflex to Free T4 if abnormal TSH with reflex to Free T4 if abnormal 3. Anal skin tag ADVISED TO ADD MORE FIBER (PRUNE AND/OR PRUNE JUICE ) TO DIET. EXPLAINED THE FINAL TX WILL BE SURGICAL REMOVAL, PT WANTS TO WAIT . ADVISED TO HAVE ROUTINE BATHROOM SCHEDULE TO TRAIN THE BOWEL MOVEMENT. ADVISED TO HAVE LOW FAT DIET ,DAILY EXERCISE, TO DRINK MORE WATER. MDM 1) COMPLEXITY: MORE THAN 1 STABLE CHRONIC CONDITION ADDRESSED 2)DATA: TESTS INTERPRETED AND OR ORDERED, TOOK INDEPENDENT HISTORY OR RECORDS REVIEWED 3)RISK: MODERATE RISK DUE TO NATURE OF MEDICAL CONDITIONS/COMORBIDITY OR MEDICATIONS ORDERED OR SURGICAL OR PROCEDURE REFERRAL, . 1 mon documented in this encounter [facility] Work Phone: 05-03-2025 History of Present illness Narrative Subjective Patient ID: Christophe Rich is a 34 y.o. female who presents for Follow-up (F/U COLONOSCOPY. C/O HEMORRHOIDS - PAINFUL AND BLEEDING. ). HPI COLONOSCOPY F/U. COMPLAINS OF FRESH BLOOD IN STOOL ON AND OFF X SEVERAL WEEKS W/O PAIN . NO CONSTIPATION (BUT TAKES OTC FIBER SUPPLEMENT). Review of Systems Constitutional: Negative for chills and fever. HENT: Negative. Negative for congestion, postnasal drip and rhinorrhea. Eyes: Negative. Negative for visual disturbance. Respiratory: Negative for cough, shortness of breath and wheezing. Cardiovascular: Negative. Negative for chest pain, palpitations and leg swelling. Gastrointestinal: Negative for abdominal distention, abdominal pain, constipation, diarrhea, nausea and vomiting. BLOOD IN STOOL. Endocrine: Negative. Genitourinary: Negative for dysuria and urgency. Musculoskeletal: Negative. Negative for back pain. Skin: Negative. Negative for rash. Allergic/Immunologic: Negative for immunocompromised state. Neurological: Negative. Negative for dizziness, weakness, light-headedness and headaches. Psychiatric/Behavioral: Negative. Negative for agitation. Objective Physical Exam Constitutional: General: She is not in acute distress. HENT: Head: Normocephalic. Nose: Nose normal. Mouth/Throat: Mouth: Mucous membranes are moist. Eyes: Conjunctiva/sclera: Conjunctivae normal. Pupils: Pupils are equal, round, and reactive to light. Cardiovascular: Rate and Rhythm: Normal rate and regular rhythm. Pulses: Normal pulses. Heart sounds: Normal heart sounds. Pulmonary: Effort: No respiratory distress. Breath sounds: No wheezing. Chest: Chest wall: No tenderness. Abdominal: General: Abdomen is flat. Bowel sounds are normal. Palpations: Abdomen is soft. Tenderness: There is no abdominal tenderness. Musculoskeletal: General: No tenderness. Normal range of motion. Cervical back: Normal range of motion. Lymphadenopathy: Cervical: No cervical adenopathy. Skin: General: Skin is warm and dry. Findings: No rash. Neurological: General: No focal deficit present. Mental Status: She is alert. Mental status is at baseline. Psychiatric: Mood and Affect: Mood normal. Behavior: Behavior normal. Assessment/Plan 1. Blood in stool Esophagogastroduodenoscopy (EGD) 2. Hyperplastic polyp of transverse colon TEST RESULTS WERE DISCUSSED. ADVISED TO ADD MORE FIBER TO DIET. ADVISED TO HAVE LOW FAT AND LOW CALORIE DIET , DAILY EXERCISE. ADVISED TO AVOID TAKING OTC NSAIDS . EXPLAINED THE NEED FOR EGD. Do not overeat. Eat small portions at meals and snacks. Do not eat/drink: chocolate, tomatoes, tomato sauces, oranges, pineapple, grapefruit, mints, coffee, alcohol, carbonated beverages, and black pepper. MDM 1) COMPLEXITY: 1 UNDIAGNOSED NEW PROBLEM WITH UNCERTAIN PROGNOSIS 2)DATA: TESTS INTERPRETED AND OR ORDERED, TOOK INDEPENDENT HISTORY OR RECORDS REVIEWED 3)RISK: MODERATE RISK DUE TO NATURE OF MEDICAL CONDITIONS/COMORBIDITY OR MEDICATIONS ORDERED OR SURGICAL OR PROCEDURE REFERRAL, . 3-4 weeks. documented in this encounter [facility] Work Phone: 04-07-2025 Hospital Discharge instructions Yanira Riley RN - 04/07/2025 8:30 AM EDT Patient Instructions after a Colonoscopy The anesthetics, sedatives or narcotics which were given to you today will be acting in your body for the next 24 hours, so you might feel a little sleepy or groggy. This feeling should slowly wear off. Carefully read and follow the instructions. You received sedation today: - Do not drive or operate any machinery or power tools of any kind. - No alcoholic beverages today, not even beer or wine. - Do not make any important decisions or sign any legal documents. - No over the counter medications that contain alcohol or that may cause drowsiness. - Do not make any important decisions or sign any legal documents. - Make sure you have someone with you for first 24 hours. While it is common to experience mild to moderate abdominal distention, gas, or belching after your procedure, if any of these symptoms occur following discharge from the GI Lab or within one week of having your procedure, call the [facility] to be advised whether a visit to your nearest Urgent Care or Emergency Department is indicated. Take this paper with you if you go. - If you develop an allergic reaction to the medications that were given during your procedure such as difficulty breathing, rash, hives, severe nausea, vomiting or lightheadedness. - If you experience chest pain, shortness of breath, severe abdominal pain, fevers and chills. -If you develop signs and symptoms of bleeding such as blood in your spit, if your stools turn black, tarry, or bloody - If you have not urinated within 8 hours following your procedure. - If your IV site becomes painful, red, inflamed, or looks infected. If you received a biopsy/polypectomy/sphincterotomy the following instructions apply below: __ Do not use Aspirin containing products, non-steroidal medications or anti-coagulants for one week following your procedure. (Examples of these types of medications are: Advil, Arthrotec, Aleve, Coumadin, Ecotrin, Heparin, Ibuprofen, Indocin, Motrin, Naprosyn, Nuprin, Plavix, Vioxx, and Voltarin, or their generic forms. This list is not all-inclusive. Check with your physician or pharmacist before resuming medications.) __ Eat a soft diet today. Avoid foods that are poorly digested for the next 24 hours. These foods would include: nuts, beans, lettuce, red meats, and fried foods. Start with liquids and advance your diet as tolerated, gradually work up to eating solids. __ Do not have a Barium Study or Enema for one week. Your physician recommends the additional following instructions: -You have a contact number available for emergencies. The signs and symptoms of potential delayed complications were discussed with you. You may return to normal activities tomorrow. -Resume your previous diet. -Continue your present medications. -We are waiting for your pathology results. -Your physician has recommended a repeat colonoscopy (date to be determined after pending pathology results are reviewed) for surveillance based on pathology results. -The findings and recommendations have been discussed with you. -The findings and recommendations were discussed with your family. - Please see Medication Reconciliation Form for new medication/medications prescribed. If you experience any problems or have any questions following discharge from the GI Lab, please call: Nurse Signature Date Patient/Responsible Alliance Party Signature Date documented in this encounter [facility] Work Phone: 04-07-2025 History and physical note Pre procedure H&P Pt feels fine , no complaint General appearance: Comfortable, no distress ROS: No SOB Medications reviewed Head: Normal Neck: Soft Heart: Regular Lungs: Clear Abdomen: soft Impression: clinically doing fine, proceed with procedure Problem List Items Addressed This Visit Constipation Relevant Orders Colonoscopy Diagnostic Other Visit Diagnoses Blood in stool Relevant Orders Colonoscopy Diagnostic [facility] Work Phone: 04-07-2025 History and physical note Pre procedure H&P Pt feels fine , no complaint General appearance: Comfortable, no distress ROS: No SOB Medications reviewed Head: Normal Neck: Soft Heart: Regular Lungs: Clear Abdomen: soft Impression: clinically doing fine, proceed with procedure Problem List Items Addressed This Visit Constipation Relevant Orders Colonoscopy Diagnostic Other Visit Diagnoses Blood in stool Relevant Orders Colonoscopy Diagnostic documented in this encounter [facility] Work Phone: 02-28-2025 History of Present illness Narrative Subjective Patient ID: Christophe Rich is a 34 y.o. female who presents for Follow-up (C/O PERSISTING HEMORRHOIDS WITH H/O BRBPR. TAKING MIRALAX WHICH HAS HELPED SOME. C/O RLQ PAIN OFF/ON - OFF/ON SINCE APPENDECTOMY DECEMBER 2024. ). HPI LAB F/U . MIGRAINE F/U, UBRELVY ELPS AND MIGRIANE IS IMPROVING . CHRONIC CONSTIPATION WITH BRIGHT RED BLOOD IN STOOL ON AND OFF . PRN ANUSOL HC HELPS A LITTLE. MIRALAX HELPS,BUT HAS TO HAVE IT ROUTINELY. NO ABDOMINAL PAIN. Review of Systems Constitutional: Negative for chills and fever. HENT: Negative. Negative for congestion, postnasal drip and rhinorrhea. Eyes: Negative. Negative for visual disturbance. Respiratory: Negative for cough, shortness of breath and wheezing. Cardiovascular: Negative. Negative for chest pain, palpitations and leg swelling. Gastrointestinal: Positive for blood in stool and constipation. Negative for abdominal distention, abdominal pain, diarrhea, nausea and vomiting. Endocrine: Negative. Genitourinary: Negative for dysuria and urgency. Musculoskeletal: Negative. Negative for back pain. Skin: Negative. Negative for rash. Allergic/Immunologic: Negative for immunocompromised state. Neurological: Negative. Negative for dizziness, weakness, light-headedness and headaches. Psychiatric/Behavioral: Negative. Negative for agitation. Objective Physical Exam Constitutional: General: She is not in acute distress. HENT: Head: Normocephalic. Nose: Nose normal. Mouth/Throat: Mouth: Mucous membranes are moist. Eyes: Conjunctiva/sclera: Conjunctivae normal. Pupils: Pupils are equal, round, and reactive to light. Cardiovascular: Rate and Rhythm: Normal rate and regular rhythm. Pulses: Normal pulses. Heart sounds: Normal heart sounds. Pulmonary: Effort: No respiratory distress. Breath sounds: No wheezing. Chest: Chest wall: No tenderness. Abdominal: General: Abdomen is flat. Bowel sounds are normal. Palpations: Abdomen is soft. Tenderness: There is no abdominal tenderness. Musculoskeletal: General: No tenderness. Normal range of motion. Cervical back: Normal range of motion. Lymphadenopathy: Cervical: No cervical adenopathy. Skin: General: Skin is warm and dry. Findings: No rash. Neurological: General: No focal deficit present. Mental Status: She is alert. Mental status is at baseline. Psychiatric: Mood and Affect: Mood normal. Behavior: Behavior normal. Assessment/Plan 1. Blood in stool Colonoscopy Diagnostic 2. Constipation, unspecified constipation type Colonoscopy Diagnostic 3. Chronic migraine without aura without status migrainosus, not intractable ADVISED TO HAVE LOW FAT AND LOW CALORIE DIET AND TO LOOSE WEIGHT, DAILY EXERCISE. ADVISED TO ADD MORE FIBER TO DIET. ADVISED TO HAVE LOW FAT AND LOW CALORIE DIET ,DAILY EXERCISE. ADVISED TO CUT DOWN CAFFEINE. MDM 1) COMPLEXITY: 1 UNDIAGNOSED NEW PROBLEM WITH UNCERTAIN PROGNOSIS 2)DATA: TESTS INTERPRETED AND OR ORDERED, TOOK INDEPENDENT HISTORY OR RECORDS REVIEWED 3)RISK: MODERATE RISK DUE TO NATURE OF MEDICAL CONDITIONS/COMORBIDITY OR MEDICATIONS ORDERED OR SURGICAL OR PROCEDURE REFERRAL, . 1 mon (after colonoscopy). documented in this encounter [facility] Work Phone: 02-02-2025 History of Present illness Narrative Subjective Patient ID: Christophe Rich is a 34 y.o. female who presents for New Patient Visit (Prior auth for migraine med + issues after appendectomy ). HPI NEW PT, HAS CHRONIC MIGRAINE 5-6 /10 ON AND OFF , AROUND 4-5 HEADACHES PER MONTH. PT COULDN'T TOLERATE THE ELAVIL AND PROPRANOLOL (FOR PREVENTION ) AND IMITREX (FOR TX) OF MIGRAINE. OTC EXCEDRIN MIGRAINE PRN HELPS A LITTLE. UBRELVY HELPED IN THE PAST, WONDERS IF CAN HAVE REFILLS. S/P UNCOMPLICATED APPENDECTOMY LAST MONTH . HAD LABS AND ABDOMINAL CT DONE. CONSTIPATION ON AND OFF CAUSING ANAL PAIN (TAKING PRN OXYCODONE AFTER SURGERY, MADE IT WORSE) . HAS BEEN ON BCP FOR MENORRHAGIA, WHICH HELPS. Review of Systems Constitutional: Negative for chills and fever. HENT: Negative. Negative for congestion, postnasal drip and rhinorrhea. Eyes: Negative. Negative for visual disturbance. Respiratory: Negative for cough, shortness of breath and wheezing. Cardiovascular: Negative. Negative for chest pain, palpitations and leg swelling. Gastrointestinal: Positive for constipation. Negative for abdominal distention, abdominal pain, diarrhea, nausea and vomiting. Endocrine: Negative. Genitourinary: Positive for menstrual problem. Negative for dysuria and urgency. Musculoskeletal: Negative. Negative for back pain. Skin: Negative. Negative for rash. Allergic/Immunologic: Negative for immunocompromised state. Neurological: Positive for headaches. Negative for dizziness, weakness and light-headedness. Psychiatric/Behavioral: Negative. Negative for agitation. Objective Physical Exam Constitutional: General: She is not in acute distress. HENT: Head: Normocephalic. Nose: Nose normal. Mouth/Throat: Mouth: Mucous membranes are moist. Eyes: Conjunctiva/sclera: Conjunctivae normal. Pupils: Pupils are equal, round, and reactive to light. Cardiovascular: Rate and Rhythm: Normal rate and regular rhythm. Pulses: Normal pulses. Heart sounds: Normal heart sounds. Pulmonary: Effort: No respiratory distress. Breath sounds: No wheezing. Chest: Chest wall: No tenderness. Abdominal: General: Abdomen is flat. Bowel sounds are normal. Palpations: Abdomen is soft. Tenderness: There is no abdominal tenderness. Musculoskeletal: General: No tenderness. Normal range of motion. Cervical back: Normal range of motion. Lymphadenopathy: Cervical: No cervical adenopathy. Skin: General: Skin is warm and dry. Findings: No rash. Neurological: General: No focal deficit present. Mental Status: She is alert. Mental status is at baseline. Psychiatric: Mood and Affect: Mood normal. Behavior: Behavior normal. Assessment/Plan 1. Chronic migraine without aura without status migrainosus, not intractable ubrogepant (Ubrelvy) 100 mg tablet tablet 2. Constipation, unspecified constipation type hydrocortisone (Anusol-HC) 2.5 % rectal cream 3. Hyponatremia Comprehensive Metabolic Panel Comprehensive Metabolic Panel 4. Screening for hyperlipidemia Lipid Panel Lipid Panel 5. Leukocytosis, unspecified type CBC and Auto Differential CBC and Auto Differential 6. Vitamin D deficiency Vitamin D 25-Hydroxy,Total (for eval of Vitamin D levels) Vitamin D 25-Hydroxy,Total (for eval of Vitamin D levels) TEST RESULTS WERE DISCUSSED. ADVISED TO HAVE LOW FAT AND LOW CALORIE DIET , DAILY EXERCISE. ADVISED TO FOLLOW GLUTEN FREE DIET (TO TRY IF CAN HELP WITH MIGRAINE). ADVISED TO CUT DOWN CAFFEINE, TO DRINK MORE WATER. ADVISED FOR MONTHLY SELF BREAST EXAM, TO ADD MORE FIBER TO DIET. EXPLAINED CAN DO COLONOSCOPY IF CONSTIPATION PERSISTS. MDM 1) COMPLEXITY: 1 UNDIAGNOSED NEW PROBLEM WITH UNCERTAIN PROGNOSIS 2)DATA: TESTS INTERPRETED AND OR ORDERED, TOOK INDEPENDENT HISTORY OR RECORDS REVIEWED 3)RISK: MODERATE RISK DUE TO NATURE OF MEDICAL CONDITIONS/COMORBIDITY OR MEDICATIONS ORDERED OR SURGICAL OR PROCEDURE REFERRAL, . 3 weeks documented in this encounter [facility] Work Phone: 01-14-2025 History of Present illness Narrative Subjective Patient ID: Christophe Rich is a 34 y.o. female who presents for Post-op (Post op #1 lap appendectomy done 12-30-24. Patient having right lower inguinal sensation described as a strain feeling when bending and sitting. Having no bowel movement or urination problems. ). Patient is seen in postop follow-up status post laparoscopic appendectomy. Since the surgery she has had numbness and lack of taste over a 1 cm within the center of her tongue. She can feel a little bit with the tip. I discussed this with anesthesia and they thought it might have been the ET tube but have never really heard of this happening. I discussed that with her and told her it should get better if it is just a pressure phenomenon. She is complaining of some discomfort in her right groin similar to strained muscle. She had some constipation postop and opened a fissure but this is getting smaller. Objective Physical Exam Constitutional: General: She is not in acute distress. Appearance: She is not toxic-appearing. Eyes: General: No scleral icterus. Extraocular Movements: Extraocular movements intact. Pupils: Pupils are equal, round, and reactive to light. Cardiovascular: Rate and Rhythm: Normal rate. Pulmonary: Effort: Pulmonary effort is normal. No respiratory distress. Abdominal: Palpations: Abdomen is soft. Tenderness: There is no abdominal tenderness. Comments: Steri-Strips are removed. There is minor skin separation. She was spitting a stitch at the infraumbilical port site and this is removed. Neosporin and Band-Aids were applied. There was no cellulitis. Musculoskeletal: General: No swelling. Neurological: General: No focal deficit present. Mental Status: She is alert and oriented to person, place, and time. Psychiatric: Mood and Affect: Mood normal. Assessment/Plan For the fissure I encouraged her to drink plenty of liquids and she could use MiraLAX and sitz bath's. She asked very good questions. We again discussed the fact that we took her appendix out because it was so low in her pelvis and if she failed antibiotic therapy it would have been a difficult abscess draining. They did not give her a copy of the pictures after the OR so I brought her into my office and pulled up on the media the photos and she took photos of what was on the screen. Wound care and activity restrictions were discussed. All questions were answered. Will schedule her on a as needed basis. Kelly Yang MD 01/14/25 10:48 AM documented in this encounter [facility] Work Phone: 12-30-2024 Hospital Discharge instructions Saira Bucio RN - 12/30/2024 3:31 PM EST For the best pain control alternate acetaminophen/Tylenol with ibuprofen every 4 hours for the first few days after surgery. For example: if you take Tylenol at 12:00 follow with ibuprofen at 4:00, Tylenol again at 8:00 and ibuprofen at 12:00 and so forth. Using this method of pain control will ensure that every 4 hours you will have a pain medication available. If you are taking a narcotic pain medication that also contains acetaminophen/Tylenol please monitor how much acetaminophen/Tylenol you are taking per day. The maximum dose of acetaminophen/tylenol for a healthy adult with no pre-existing/known liver conditions is 4000 mg/day. As always consult with your primary care doctor or surgeon regarding the best method of pain control for you. The following attachments cannot be sent through Care Everywhere.Appendectomy, Laparoscopic Surgery Discharge Instructions (Faroese)documented in this encounter [facility] Work Phone: 12-30-2024 Attending History and physical note H&P reviewed. The patient was examined and there are no changes to the H&P. Source Note - Kelly Yang MD - 12/30/2024 7:47 AM EST Reason For Consult Acute appendicitis History Of Present Illness Christophe Rich is a 34 y.o. female presenting with 1 day history of progressive right lower quadrant abdominal pain. CT scan of the abdomen and pelvis was done which was consistent with a pelvic appendicitis. Patient had associated nausea and vomiting and some loose stools. She is seen with her significant other. She looks well and states she has discomfort sometimes when she turns and when she voids. Past Medical History She has a past medical history of Allergic, Headache, and Other specified health status. Surgical History She has a past surgical history that includes Other surgical history (06/25/2022); Breast surgery; Eye surgery; Sinus surgery; and [place] tooth extraction. Social History She reports that she has never smoked. She has never used smokeless tobacco. She reports current alcohol use of about 2.0 - 3.0 standard drinks of alcohol per week. She reports that she does not use drugs. Family History Family History Problem Relation Name Age of Onset Cancer Mother Mom Cancer Maternal Grandfather Grandpa Cancer Maternal Grandmother Grandma Heart disease Paternal Grandfather Grandpa Cancer Mother's Sister Aunt Allergies Penicillins and Tree pollen-leon [place] Review of Systems Constitutional: no fever, sweats, and chills Cardiovascular: No chest pain or palpitations Respiratory: No cough or shortness of breath Gastrointestinal: as in HPI Genitourinary: no dysuria or urinary frequency Musculoskeletal: no weakness or swelling Integumentary: no rashes Neurological: no confusion Endocrine: no heat or cold intolerance Heme/Lymph: no easy bruising or bleeding Physical Exam Constitutional: No acute distress, conversant, pleasant Neurologic: Alert and oriented Psych: Appropriate affect Ears, Nose, Mouth and Throat: mucus membranes moist Pulmonary: No labored breathing Cardiovascular: Regular rate and rhythm Abdomen: Soft, non-distended, tender right lower quadrant suprapubic region by report Musculoskeletal: Moves all extremities, no edema Skin: No jaundice Last Recorded Vitals Blood pressure 123/76, pulse 96, temperature 36.7 C (98.1 F), temperature source Oral, resp. rate 16, height 1.702 m (5' 7"), weight 65.8 kg (145 lb), SpO2 98%. Relevant Results White count 17,000 CT as listed Assessment/Plan Acute appendicitis. We discussed the alternatives of antibiotics versus proceeding to the OR. I explained to her with a pelvic appendicitis it is sometimes difficult to follow these clinically. They do agree to appendectomy. We will add her onto my schedule today which should be early afternoon. The planned procedure as well as the risks and potential complications including but not limited to bleeding, infection, reaction to the anesthetic, stroke, AR and/or were all explained. We discussed the possibility that the appendix could be normal or could even be perforated. We discussed the risk of hernia formation, and obstructions or infections requiring future procedures or operations. We discussed postoperative pain management and activity restrictions. All questions were answered and they asked us to proceed. We will sign the consent in the preop holding area. Kelly Yang MD [facility] Work Phone: 12-30-2024 History and physical note H&P reviewed. The patient was examined and there are no changes to the H&P. Source Note - Kelly Yang MD - 12/30/2024 7:47 AM EST Reason For Consult Acute appendicitis History Of Present Illness Christophe Rich is a 34 y.o. female presenting with 1 day history of progressive right lower quadrant abdominal pain. CT scan of the abdomen and pelvis was done which was consistent with a pelvic appendicitis. Patient had associated nausea and vomiting and some loose stools. She is seen with her significant other. She looks well and states she has discomfort sometimes when she turns and when she voids. Past Medical History She has a past medical history of Allergic, Headache, and Other specified health status. Surgical History She has a past surgical history that includes Other surgical history (06/25/2022); Breast surgery; Eye surgery; Sinus surgery; and [place] tooth extraction. Social History She reports that she has never smoked. She has never used smokeless tobacco. She reports current alcohol use of about 2.0 - 3.0 standard drinks of alcohol per week. She reports that she does not use drugs. Family History Family History Problem Relation Name Age of Onset Cancer Mother Mom Cancer Maternal Grandfather Grandpa Cancer Maternal Grandmother Grandma Heart disease Paternal Grandfather Grandpa Cancer Mother's Sister Aunt Allergies Penicillins and Tree pollen-[place] Review of Systems Constitutional: no fever, sweats, and chills Cardiovascular: No chest pain or palpitations Respiratory: No cough or shortness of breath Gastrointestinal: as in HPI Genitourinary: no dysuria or urinary frequency Musculoskeletal: no weakness or swelling Integumentary: no rashes Neurological: no confusion Endocrine: no heat or cold intolerance Heme/Lymph: no easy bruising or bleeding Physical Exam Constitutional: No acute distress, conversant, pleasant Neurologic: Alert and oriented Psych: Appropriate affect Ears, Nose, Mouth and Throat: mucus membranes moist Pulmonary: No labored breathing Cardiovascular: Regular rate and rhythm Abdomen: Soft, non-distended, tender right lower quadrant suprapubic region by report Musculoskeletal: Moves all extremities, no edema Skin: No jaundice Last Recorded Vitals Blood pressure 123/76, pulse 96, temperature 36.7 C (98.1 F), temperature source Oral, resp. rate 16, height 1.702 m (5' 7"), weight 65.8 kg (145 lb), SpO2 98%. Relevant Results White count 17,000 CT as listed Assessment/Plan Acute appendicitis. We discussed the alternatives of antibiotics versus proceeding to the OR. I explained to her with a pelvic appendicitis it is sometimes difficult to follow these clinically. They do agree to appendectomy. We will add her onto my schedule today which should be early afternoon. The planned procedure as well as the risks and potential complications including but not limited to bleeding, infection, reaction to the anesthetic, stroke, AR and/or were all explained. We discussed the possibility that the appendix could be normal or could even be perforated. We discussed the risk of hernia formation, and obstructions or infections requiring future procedures or operations. We discussed postoperative pain management and activity restrictions. All questions were answered and they asked us to proceed. We will sign the consent in the preop holding area. Kelly Yang MD documented in this encounter [facility] Work Phone: 12-30-2024 Miscellaneous Notes APPENDECTOMY, LAPAROSCOPIC, BLOCK, TRANSVERSUS ABDOMINIS PLANE (B) Operative Note Date: 12/29/2024 - 12/30/2024 OR Location: [facility] OR Name: Christophe Rich, : 1990, Age: 34 y.o., , Sex: female Diagnosis Pre-op Diagnosis * Acute appendicitis with localized peritonitis, without perforation, abscess, or gangrene [K35.30] Post-op Diagnosis * Acute appendicitis with localized peritonitis, without perforation, abscess, or gangrene [K35.30] Procedures APPENDECTOMY, LAPAROSCOPIC 22911 - NE LAPAROSCOPIC APPENDECTOMY BLOCK, TRANSVERSUS ABDOMINIS PLANE 48201 - NE TAP BLOCK BILATERAL BY INJECTION(S) Surgeons * Kelly Yang - Primary Resident/Fellow/Other Head Pastry Chef: Surgeons and Role: * No surgeons found with a matching role * Staff: Scrub Person: Filiberto Spoon Maker: Elfego Anesthesia Staff: Anesthesiologist: Sheldon Landrum MD Procedure Summary Anesthesia: Anesthesia type not filed in the log. ASA: II Estimated Blood Loss: 3mL Intra-op Medications: Administrations occurring from 1440 to 1620 on 12/30/24: Medication Name Total Dose BUPivacaine HCl (Marcaine) 0.25 % (2.5 mg/mL) injection 40 mL fentaNYL PF 0.05 mg/mL 200 mcg ketamine 50 mg/mL IV vial 30 mg lactated Ringer's infusion Cannot be calculated lidocaine (Xylocaine) injection 2 % 60 mg propofol (Diprivan) injection 10 mg/mL 200 mg rocuronium (ZeMuron) 50 mg/5 mL injection 30 mg succinylcholine 100 mg/5 mL syringe 80 mg Anesthesia Record Intraprocedure I/O Totals Intake Neostigmine 0.00 mL The total shown is the total volume documented since Anesthesia Start was filed. Ketamine 0.00 mL The total shown is the total volume documented since Anesthesia Start was filed. lactated Ringer's infusion 1500.00 mL Total Intake 1500 mL Specimen: ID Type Source Tests Collected by Time 1 : APPENDIX Tissue APPENDIX SURGICAL PATHOLOGY EXAM Kelly Yang MD 12/30/2024 [id number] Findings: Normal appendiceal base for about a centimeter and a half and then the appendix dilated and became thickened with injection of the vessels Indications: Christophe Rich is an 34 y.o. female who is having surgery for Acute appendicitis with localized peritonitis, without perforation, abscess, or gangrene [K35.30]. We discussed the alternatives and she opted for appendectomy. The patient was seen in the preoperative area. The risks, benefits, complications, treatment options, non-operative alternatives, expected recovery and outcomes were discussed with the patient. The possibilities of reaction to medication, pulmonary aspiration, injury to surrounding structures, bleeding, recurrent infection, the need for additional procedures, failure to diagnose a condition, and creating a complication requiring transfusion or operation were discussed with the patient. The patient concurred with the proposed plan, giving informed consent. The site of surgery was properly noted/marked if necessary per policy. The patient has been actively warmed in preoperative area. Preoperative antibiotics have been ordered and given within 1 hours of incision. Venous thrombosis prophylaxis have been ordered including bilateral sequential compression devices Procedure Details: Patient was brought to the operating room and placed supine upon the operating room table with left arm tucked. SCD devices were in place. Operative huddle was done. After the uneventful administration of a general anesthetic the abdomen was prepped and draped in usual sterile fashion. Timeout was done. Local anesthetic was injected at the port sites. An infraumbilical midline skin incision was made and carried down to the fascia. This was grasped with [place]'s and elevated. The fascia was divided transversely. The posterior fascia was thick and was divided as a separate layer. We then entered the peritoneal cavity under direct vision. The stay sutures had been placed laterally with 0 Vicryl. The Maher cannula was introduced and the abdomen insufflated. Under direct vision a 5 mm suprapubic and 5 mm lateral trocar were then placed. Patient was placed in Trendelenburg and rotated slightly to the left. The cecum was grasped and the appendix readily came out of the pelvis. The appendix was grasped and the mesoappendix taken down with the LigaSure to clear the base. The base was stapled off using Endo LARRY stapler. Minimal bleeding from the staple line. The appendix was placed in the retrieval bag and pulled back to the 10 mm port. Tap blocks were then done bilaterally under direct vision. The 5 mm ports were removed under direct vision. The port was desufflated and the port and the specimen removed. Additional interrupted sutures of 0 Vicryl were placed at the midline incision and a [id number] suture tied using the originally placed suture. Skin was approximated using inverted sutures of 3-0 Vicryl and the skin closed with a running subcuticular stitch of 4-0 Monocryl. Dermabond and Steri-Strips were applied. Patient tolerated the procedure well and was sent to the recovery area in stable condition. All needle and sponge counts were correct. Complications: None; patient tolerated the procedure well. Disposition: PACU - hemodynamically stable. Condition: stable Kelly Yang documented in this encounter [facility] Work Phone: 12-30-2024 Note Formatting of this n ote is different from the original. APPENDECTOMY, LAPAROSCOPIC, BLOCK, TRANSVERSUS ABDOMINIS PLANE (B) Operative Note Date: 12/29/2024 - 12/30/2024 OR Location: [facility] OR Name: Christophe Rich, : 1990, Age: 34 y.o., , Sex: female Diagnosis Pre-op Diagnosis * Acute appendicitis with localized peritonitis, without perforation, abscess, or gangrene [K35.30] Post-op Diagnosis * Acute appendicitis with localized peritonitis, without perforation, abscess, or gangrene [K35.30] Procedures APPENDECTOMY, LAPAROSCOPIC 56419 - NE LAPAROSCOPIC APPENDECTOMY BLOCK, TRANSVERSUS ABDOMINIS PLANE 01001 - NE TAP BLOCK BILATERAL BY INJECTION(S) Surgeons * Kelly Yang - Primary Resident/Fellow/Other Head Pastry Chef: Surgeons and Role: * No surgeons found with a matching role * Staff: Scrub Person: Filiberto Spoon Maker: Elfego Anesthesia Staff: Anesthesiologist: Sheldon Landrum MD Procedure Summary Anesthesia: Anesthesia type not filed in the log. ASA: II Estimated Blood Loss: 3mL Intra-op Medications: Administrations occurring from 1440 to 1620 on 12/30/24: Medication Name Total Dose BUPivacaine HCl (Marcaine) 0.25 % (2.5 mg/mL) injection 40 mL fentaNYL PF 0.05 mg/mL 200 mcg ketamine 50 mg/mL IV vial 30 mg lactated Ringer's infusion Cannot be calculated lidocaine (Xylocaine) injection 2 % 60 mg propofol (Diprivan) injection 10 mg/mL 200 mg rocuronium (ZeMuron) 50 mg/5 mL injection 30 mg succinylcholine 100 mg/5 mL syringe 80 mg Anesthesia Record Intraprocedure I/O Totals Intake Neostigmine 0.00 mL The total shown is the total volume documented since Anesthesia Start was filed. Ketamine 0.00 mL The total shown is the total volume documented since Anesthesia Start was filed. lactated Ringer's infusion 1500.00 mL Total Intake 1500 mL Specimen: ID Type Source Tests Collected by Time 1 : APPENDIX Tissue APPENDIX SURGICAL PATHOLOGY EXAM Kelly Yang MD 12/30/2024 [id number] Findings: Normal appendiceal base for about a centimeter and a half and then the appendix dilated and became thickened with injection of the vessels Indications: Christophe Rich is an 34 y.o. female who is having surgery for Acute appendicitis with localized peritonitis, without perforation, abscess, or gangrene [K35.30]. We discussed the alternatives and she opted for appendectomy. The patient was seen in the preoperative area. The risks, benefits, complications, treatment options, non-operative alternatives, expected recovery and outcomes were discussed with the patient. The possibilities of reaction to medication, pulmonary aspiration, injury to surrounding structures, bleeding, recurrent infection, the need for additional procedures, failure to diagnose a condition, and creating a complication requiring transfusion or operation were discussed with the patient. The patient concurred with the proposed plan, giving informed consent. The site of surgery was properly noted/marked if necessary per policy. The patient has been actively warmed in preoperative area. Preoperative antibiotics have been ordered and given within 1 hours of incision. Venous thrombosis prophylaxis have been ordered including bilateral sequential compression devices Procedure Details: Patient was brought to the operating room and placed supine upon the operating room table with left arm tucked. SCD devices were in place. Operative huddle was done. After the uneventful administration of a general anesthetic the abdomen was prepped and draped in usual sterile fashion. Timeout was done. Local anesthetic was injected at the port sites. An infraumbilical midline skin incision was made and carried down to the fascia. This was grasped with Moustapha's and elevated. The fascia was divided transversely. The posterior fascia was thick and was divided as a separate layer. We then entered the peritoneal cavity under direct vision. The stay sutures had been placed laterally with 0 Vicryl. The Maher cannula was introduced and the abdomen insufflated. Under direct vision a 5 mm suprapubic and 5 mm lateral trocar were then placed. Patient was placed in Trendelenburg and rotated slightly to the left. The cecum was grasped and the appendix readily came out of the pelvis. The appendix was grasped and the mesoappendix taken down with the LigaSure to clear the base. The base was stapled off using Endo LARRY stapler. Minimal bleeding from the staple line. The appendix was placed in the retrieval bag and pulled back to the 10 mm port. Tap blocks were then done bilaterally under direct vision. The 5 mm ports were removed under direct vision. The port was desufflated and the port and the specimen removed. Additional interrupted sutures of 0 Vicryl were placed at the midline incision and a [id number] suture tied using the originally placed suture. Skin was approximated using inverted sutures of 3-0 Vicryl and the skin closed with a running subcuticular stitch of 4-0 Monocryl. Dermabond and Steri-Strips were applied. Patient tolerated the procedure well and was sent to the recovery area in stable condition. All needle and sponge counts were correct. Complications: None; patient tolerated the procedure well. Disposition: PACU - hemodynamically stable. Condition: stable Kelly Yang [facility] Work Phone: 12-30-2024 Consult note Formatting of th is note is different from the original. Reason For Consult Acute appendicitis History Of Present Illness Christophe Rich is a 34 y.o. female presenting with 1 day history of progressive right lower quadrant abdominal pain. CT scan of the abdomen and pelvis was done which was consistent with a pelvic appendicitis. Patient had associated nausea and vomiting and some loose stools. She is seen with her significant other. She looks well and states she has discomfort sometimes when she turns and when she voids. Past Medical History She has a past medical history of Allergic, Headache, and Other specified health status. Surgical History She has a past surgical history that includes Other surgical history (06/25/2022); Breast surgery; Eye surgery; Sinus surgery; and [place] tooth extraction. Social History She reports that she has never smoked. She has never used smokeless tobacco. She reports current alcohol use of about 2.0 - 3.0 standard drinks of alcohol per week. She reports that she does not use drugs. Family History Family History Problem Relation Name Age of Onset Cancer Mother Mom Cancer Maternal Grandfather Grandpa Cancer Maternal Grandmother Grandma Heart disease Paternal Grandfather Grandpa Cancer Mother's Sister Aunt Allergies Penicillins and Tree pollen-[place] Review of Systems Constitutional: no fever, sweats, and chills Cardiovascular: No chest pain or palpitations Respiratory: No cough or shortness of breath Gastrointestinal: as in HPI Genitourinary: no dysuria or urinary frequency Musculoskeletal: no weakness or swelling Integumentary: no rashes Neurological: no confusion Endocrine: no heat or cold intolerance Heme/Lymph: no easy bruising or bleeding Physical Exam Constitutional: No acute distress, conversant, pleasant Neurologic: Alert and oriented Psych: Appropriate affect Ears, Nose, Mouth and Throat: mucus membranes moist Pulmonary: No labored breathing Cardiovascular: Regular rate and rhythm Abdomen: Soft, non-distended, tender right lower quadrant suprapubic region by report Musculoskeletal: Moves all extremities, no edema Skin: No jaundice Last Recorded Vitals Blood pressure 123/76, pulse 96, temperature 36.7 C (98.1 F), temperature source Oral, resp. rate 16, height 1.702 m (5' 7"), weight 65.8 kg (145 lb), SpO2 98%. Relevant Results White count 17,000 CT as listed Assessment/Plan Acute appendicitis. We discussed the alternatives of antibiotics versus proceeding to the OR. I explained to her with a pelvic appendicitis it is sometimes difficult to follow these clinically. They do agree to appendectomy. We will add her onto my schedule today which should be early afternoon. The planned procedure as well as the risks and potential complications including but not limited to bleeding, infection, reaction to the anesthetic, stroke, AR and/or were all explained. We discussed the possibility that the appendix could be normal or could even be perforated. We discussed the risk of hernia formation, and obstructions or infections requiring future procedures or operations. We discussed postoperative pain management and activity restrictions. All questions were answered and they asked us to proceed. We will sign the consent in the preop holding area. Kelly Yang MD [facility] Work Phone: 12-30-2024 Consult note Formatting of th is note is different from the original. Reason For Consult Acute appendicitis History Of Present Illness Christophe Rich is a 34 y.o. female presenting with 1 day history of progressive right lower quadrant abdominal pain. CT scan of the abdomen and pelvis was done which was consistent with a pelvic appendicitis. Patient had associated nausea and vomiting and some loose stools. She is seen with her significant other. She looks well and states she has discomfort sometimes when she turns and when she voids. Past Medical History She has a past medical history of Allergic, Headache, and Other specified health status. Surgical History She has a past surgical history that includes Other surgical history (06/25/2022); Breast surgery; Eye surgery; Sinus surgery; and [place] tooth extraction. Social History She reports that she has never smoked. She has never used smokeless tobacco. She reports current alcohol use of about 2.0 - 3.0 standard drinks of alcohol per week. She reports that she does not use drugs. Family History Family History Problem Relation Name Age of Onset Cancer Mother Mom Cancer Maternal Grandfather Grandpa Cancer Maternal Grandmother Grandma Heart disease Paternal Grandfather Grandpa Cancer Mother's Sister Aunt Allergies Penicillins and Tree pollen-[place] Review of Systems Constitutional: no fever, sweats, and chills Cardiovascular: No chest pain or palpitations Respiratory: No cough or shortness of breath Gastrointestinal: as in HPI Genitourinary: no dysuria or urinary frequency Musculoskeletal: no weakness or swelling Integumentary: no rashes Neurological: no confusion Endocrine: no heat or cold intolerance Heme/Lymph: no easy bruising or bleeding Physical Exam Constitutional: No acute distress, conversant, pleasant Neurologic: Alert and oriented Psych: Appropriate affect Ears, Nose, Mouth and Throat: mucus membranes moist Pulmonary: No labored breathing Cardiovascular: Regular rate and rhythm Abdomen: Soft, non-distended, tender right lower quadrant suprapubic region by report Musculoskeletal: Moves all extremities, no edema Skin: No jaundice Last Recorded Vitals Blood pressure 123/76, pulse 96, temperature 36.7 C (98.1 F), temperature source Oral, resp. rate 16, height 1.702 m (5' 7"), weight 65.8 kg (145 lb), SpO2 98%. Relevant Results White count 17,000 CT as listed Assessment/Plan Acute appendicitis. We discussed the alternatives of antibiotics versus proceeding to the OR. I explained to her with a pelvic appendicitis it is sometimes difficult to follow these clinically. They do agree to appendectomy. We will add her onto my schedule today which should be early afternoon. The planned procedure as well as the risks and potential complications including but not limited to bleeding, infection, reaction to the anesthetic, stroke, AR and/or were all explained. We discussed the possibility that the appendix could be normal or could even be perforated. We discussed the risk of hernia formation, and obstructions or infections requiring future procedures or operations. We discussed postoperative pain management and activity restrictions. All questions were answered and they asked us to proceed. We will sign the consent in the preop holding area. Kelly Yang MD documented in this encounter [facility] Work Phone: 12-29-2024 History of Present illness Narrative Patient seen in ER for 1 day history of progressive right lower quadrant abdominal pain. CT scan of the abdomen and pelvis was significant for dilated appendix in the pelvis which could be consistent with acute appendicitis. Her white count is 17,000. Her only other comorbidity is migraines. She will need to housed in the ER overnight due to the lack of beds. Admission orders are written and I will come in to do her history and physical in the morning unless she needs to be evaluated beforehand. I would plan to add her onto the schedule in the afternoon unless she opts for antibiotic treatment which with the appendix being in her pelvis I do not think is the best option. I will discuss it further with her in the morning. Case was discussed with Dr. Wu. documented in this encounter [facility] Work Phone: 12-29-2024 Physician Emergency department Note Emergency Medicine Transition of Care Note. I received Christophe Steinbergdillo in signout from Gabby Caba. Please see the previous ED provider note for all HPI, PE and MDM up to the time of signout at p.m. This is in addition to the primary record. In brief Christophe Rich is an 34 y.o. female presenting for Chief Complaint Patient presents with Abdominal Pain RLQ abd pain since this morning. Pt just got back from [place] 2 days ago. At the time of signout we were awaiting: Results of CT scan Diagnoses as of 12/29/24 3193 Acute appendicitis with localized peritonitis, without perforation, abscess, or gangrene Medical Decision Making Patient was checked out to me pending results of CT scan. It indicates early appendicitis. I spoke to the surgeon Dr. Kelly Yang who recommended admission, antibiotics and she will see her in the morning around 7 AM. Final diagnoses: [K35.30] Acute appendicitis with localized peritonitis, without perforation, abscess, or gangrene Procedure Procedures MD Rolando Melgar MD 12/29/242333 [facility] Work Phone: 12-29-2024 Emergency department Note Emergency Medicine Transition of Care Note. I received Christophe Rich in signout from Gabby Caba. Please see the previous ED provider note for all HPI, PE and MDM up to the time of signout at p.m. This is in addition to the primary record. In brief Christophe Rich is an 34 y.o. female presenting for Chief Complaint Patient presents with Abdominal Pain RLQ abd pain since this morning. Pt just got back from [place] 2 days ago. At the time of signout we were awaiting: Results of CT scan Diagnoses as of 12/29/242333 Acute appendicitis with localized peritonitis, without perforation, abscess, or gangrene Medical Decision Making Patient was checked out to me pending results of CT scan. It indicates early appendicitis. I spoke to the surgeon Dr. Kelly Yang who recommended admission, antibiotics and she will see her in the morning around 7 AM. Final diagnoses: [K35.30] Acute appendicitis with localized peritonitis, without perforation, abscess, or gangrene Procedure Procedures MD Rolando Melgar MD 12/29/242333 Chief Complaint Patient presents with Abdominal Pain RLQ abd pain since this morning. Pt just got back from [place] 2 days ago. Patient History Past Medical History: Diagnosis Date Allergic Headache Other specified health status No pertinent past medical history Past Surgical History: Procedure Laterality Date BREAST SURGERY EYE SURGERY OTHER SURGICAL HISTORY 06/25/2022 Breast biopsy SINUS SURGERY WISDOM TOOTH EXTRACTION Family History Problem Relation Name Age of Onset Cancer Mother Mom Cancer Maternal Grandfather Grandpa Cancer Maternal Grandmother Grandma Heart disease Paternal Grandfather Grandpa Cancer Mother's Sister Aunt Social History Social History Narrative Not on file Allergies Allergen Reactions Penicillins Unknown Tree Pollen[place] Itching, Other and Runny nose PMH: Reviewed PSH: Reviewed Social History: Reviewed. Allergies reviewed. HPI: Christophe Rich is a 34 y.o. female who presents to the ED today accompanied by her with complaints of migratory right lower quadrant abdominal pain. Patient states she woke up at 2 AM today with upper abdominal pain. Nausea with vomiting this morning. Loose stools but not diarrhea. Tried taking [id number] medications without relief. Pain moved to the right lower quadrant about 5 PM this evening. Concern for appendicitis. Denies chance of today. REVIEW OF SYSTEMS: All other systems reviewed and negative except as listed in HPI. PHYSICAL EXAM: GENERAL: Vitals noted, no distress. Alert and oriented x 3. Non-toxic. EENT: TMs clear. Posterior oropharynx unremarkable. EOMI, no nystagmus noted. NECK: Supple. No masses. No midline tenderness. No meningeal signs. CARDIAC: Regular rate, rhythm. No murmurs rubs or gallops. No JVD. PULMONARY: Lungs clear and equal bilaterally. No wheezes rales or rhonchi. No respiratory distress. ABDOMEN: Soft, nondistended, and tender in the lower abdomen. No peritoneal signs. Bowel sounds are present and normoactive in all 4 quadrants. No pulsatile masses. EXTREMITIES: No peripheral edema. SKIN: No rash. Warm, dry, and intact. NEURO: No focal neurologic deficits. Labs Reviewed COMPREHENSIVE METABOLIC PANEL - Abnormal Result Value Glucose 139 (*) Sodium 135 (*) Potassium 4.1 Chloride 102 Bicarbonate 24 Anion Gap 13 Urea Nitrogen 13 Creatinine 0.77 eGFR >90 Calcium 9.0 Albumin 4.3 Alkaline Phosphatase 32 (*) Total Protein 7.5 AST 23 Bilirubin, Total 1.1 ALT 25 CBC WITH AUTO DIFFERENTIAL - Abnormal WBC 17.7 (*) nRBC 0.0 RBC 4.60 Hemoglobin 14.3 Hematocrit 42.9 MCV 93 MCH 31.1 MCHC 33.3 RDW 12.1 Platelets 276 Neutrophils % 91.7 Immature Granulocytes %, Automated 0.3 Lymphocytes % 3.7 Monocytes % 4.1 Eosinophils % 0.1 Basophils % 0.1 Neutrophils Absolute 16.22 (*) Immature Granulocytes Absolute, Automated 0.06 Lymphocytes Absolute 0.65 (*) Monocytes Absolute 0.73 Eosinophils Absolute 0.02 Basophils Absolute 0.02 LIPASE - Normal Lipase 13 Narrative: Venipuncture immediately after or during the administration of Metamizole may lead to falsely low results. Testing should be performed immediately prior to Metamizole dosing. LACTATE - Normal Lactate 1.3 Narrative: Venipuncture immediately after or during the administration of Metamizole may lead to falsely low results. Testing should be performed immediately prior to Metamizole dosing. HUMAN CHORIONIC GONADOTROPIN, SERUM QUANTITATIVE - Normal HCG, Beta-Quantitative <2 Narrative: Total HCG measurement is performed using the Sam[employer] Exam18 Access Immunoassay which detects intact HCG and free beta HCG subunit. This test is not indicated for use as a tumor marker. HCG testing is performed using a different test methodology at [facility] than other [facility]. Direct result comparison should only be made within the same method. URINALYSIS WITH REFLEX CULTURE AND MICROSCOPIC Narrative: The following orders were created for panel order Urinalysis with Reflex Culture and Microscopic. Procedure Abnormality Status --------- ------ Urinalysis with Reflex C...[[id number]] Extra Urine Jarvis Tube[[id number]] Please view results for these tests on the individual orders. HCG, URINE, QUALITATIVE URINALYSIS WITH REFLEX CULTURE AND MICROSCOPIC EXTRA URINE JARVIS TUBE CT abdomen pelvis w IV contrast (Results Pending) Medical Decision Making ED COURSE: This patient was seen and examined by myself independently. She declined pain or nausea medication at this time. She is an IV established. Labs are obtained and are noted above, significant for 17k white count. Will send for CT imaging of the abdomen with contrast after test negative. Awaiting urine sample and CT scan results at the end of my shift and care turned over to ED attending for completion. Differential Diagnoses Considered: Appendicitis, cyst, pancreatitis, colitis, gastritis, diverticulitis Chronic Medical Conditions Significantly Affecting Care: see above External Records Reviewed: I reviewed recent and relevant outside records including: PCP notes, prior discharge summary, previous radiologic studies Diagnostic testing considered: Blood, urine, CT DIAGNOSTIC IMPRESSION: #1 RLQ abdominal pain HEMANTH Kerr 12/29/24 5066 documented in this encounter [facility] Work Phone: 12-29-2024 Physician Emergency department Note Chief Complaint Patient presents with Abdominal Pain RLQ abd pain since this morning. Pt just got back from [place] 2 days ago. Patient History Past Medical History: Diagnosis Date Allergic Headache Other specified health status No pertinent past medical history Past Surgical History: Procedure Laterality Date BREAST SURGERY EYE SURGERY OTHER SURGICAL HISTORY 06/25/2022 Breast biopsy SINUS SURGERY WISDOM TOOTH EXTRACTION Family History Problem Relation Name Age of Onset Cancer Mother Mom Cancer Maternal Grandfather Grandpa Cancer Maternal Grandmother Grandma Heart disease Paternal Grandfather Grandpa Cancer Mother's Sister Aunt Social History Social History Narrative Not on file Allergies Allergen Reactions Penicillins Unknown Tree Pollen[place] Itching, Other and Runny nose PMH: Reviewed PSH: Reviewed Social History: Reviewed. Allergies reviewed. HPI: Christophe Rich is a 34 y.o. female who presents to the ED today accompanied by her with complaints of migratory right lower quadrant abdominal pain. Patient states she woke up at 2 AM today with upper abdominal pain. Nausea with vomiting this morning. Loose stools but not diarrhea. Tried taking [id number]-rbapbey medications without relief. Pain moved to the right lower quadrant about 5 PM this evening. Concern for appendicitis. Denies chance of today. REVIEW OF SYSTEMS: All other systems reviewed and negative except as listed in HPI. PHYSICAL EXAM: GENERAL: Vitals noted, no distress. Alert and oriented x 3. Non-toxic. EENT: TMs clear. Posterior oropharynx unremarkable. EOMI, no nystagmus noted. NECK: Supple. No masses. No midline tenderness. No meningeal signs. CARDIAC: Regular rate, rhythm. No murmurs rubs or gallops. No JVD. PULMONARY: Lungs clear and equal bilaterally. No wheezes rales or rhonchi. No respiratory distress. ABDOMEN: Soft, nondistended, and tender in the lower abdomen. No peritoneal signs. Bowel sounds are present and normoactive in all 4 quadrants. No pulsatile masses. EXTREMITIES: No peripheral edema. SKIN: No rash. Warm, dry, and intact. NEURO: No focal neurologic deficits. Labs Reviewed COMPREHENSIVE METABOLIC PANEL - Abnormal Result Value Glucose 139 (*) Sodium 135 (*) Potassium 4.1 Chloride 102 Bicarbonate 24 Anion Gap 13 Urea Nitrogen 13 Creatinine 0.77 eGFR >90 Calcium 9.0 Albumin 4.3 Alkaline Phosphatase 32 (*) Total Protein 7.5 AST 23 Bilirubin, Total 1.1 ALT 25 CBC WITH AUTO DIFFERENTIAL - Abnormal WBC 17.7 (*) nRBC 0.0 RBC 4.60 Hemoglobin 14.3 Hematocrit 42.9 MCV 93 MCH 31.1 MCHC 33.3 RDW 12.1 Platelets 276 Neutrophils % 91.7 Immature Granulocytes %, Automated 0.3 Lymphocytes % 3.7 Monocytes % 4.1 Eosinophils % 0.1 Basophils % 0.1 Neutrophils Absolute 16.22 (*) Immature Granulocytes Absolute, Automated 0.06 Lymphocytes Absolute 0.65 (*) Monocytes Absolute 0.73 Eosinophils Absolute 0.02 Basophils Absolute 0.02 LIPASE - Normal Lipase 13 Narrative: Venipuncture immediately after or during the administration of Metamizole may lead to falsely low results. Testing should be performed immediately prior to Metamizole dosing. LACTATE - Normal Lactate 1.3 Narrative: Venipuncture immediately after or during the administration of Metamizole may lead to falsely low results. Testing should be performed immediately prior to Metamizole dosing. HUMAN CHORIONIC GONADOTROPIN, SERUM QUANTITATIVE - Normal HCG, Beta-Quantitative <2 Narrative: Total HCG measurement is performed using the [employer] Access Immunoassay which detects intact HCG and free beta HCG subunit. This test is not indicated for use as a tumor marker. HCG testing is performed using a different test methodology at [facility] than other [facility]. Direct result comparison should only be made within the same method. URINALYSIS WITH REFLEX CULTURE AND MICROSCOPIC Narrative: The following orders were created for panel order Urinalysis with Reflex Culture and Microscopic. Procedure Abnormality Status --------- ------ Urinalysis with Reflex C...[[id number]] Extra Urine Jarvis Tube[[id number]] Please view results for these tests on the individual orders. HCG, URINE, QUALITATIVE URINALYSIS WITH REFLEX CULTURE AND MICROSCOPIC EXTRA URINE JARVIS TUBE CT abdomen pelvis w IV contrast (Results Pending) Medical Decision Making ED COURSE: This patient was seen and examined by myself independently. She declined pain or nausea medication at this time. She is an IV established. Labs are obtained and are noted above, significant for 17k white count. Will send for CT imaging of the abdomen with contrast after test negative. Awaiting urine sample and CT scan results at the end of my shift and care turned over to ED attending for completion. Differential Diagnoses Considered: Appendicitis, cyst, pancreatitis, colitis, gastritis, diverticulitis Chronic Medical Conditions Significantly Affecting Care: see above External Records Reviewed: I reviewed recent and relevant outside records including: PCP notes, prior discharge summary, previous radiologic studies Diagnostic testing considered: Blood, urine, CT DIAGNOSTIC IMPRESSION: #1 RLQ abdominal pain HEMANTH Kerr 12/29/242202 [facility] Work Phone: 07-02-2024 History of Present illness Narrative Supervisor Assembling offered: Patient declines. Christophe is a 33 year old who presents for an annual gynecologic exam with complaints, had some lesions on labia 3-4 times this year same spot- hurt with pressure or wiping . No lesions currently. Planning trip to [facility] again (3rd time) went to [place] as well. Menses: no menses - continuous OCPs. Contraception: combined hormonal contraceptives HPV vaccine: No Last Pap: 07/10/2022 normal HPV: 07/08/2022 negative History of abnormal pap: No Last mammogram: never Sexually active: Yes History of STDS: None Patient concerns for STD exposure: No. 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 History Comments: Sexual Activity: Yes; Male Contraception: Pill PAST MEDICAL HISTORY No date: NEGATIVE MEDICAL HISTORYPAST SURGICAL HISTORY No date: BX OF BREAST; INCISIONAL; Right No date: EYE SURGERY HX No date: TONSILLECTOMY & ADENOIDECTOMY <AGE 11 FAMILY HISTORY Problem Relation Age of Onset Skin Cancer Mother Osteoporosis Mother Hyperlipidemia Father Lung Cancer Maternal Grandmother other (scleaderma) Maternal Grandmother other (throat cancer) Maternal Grandfather Skin Cancer Maternal Grandfather other (pacemaker) Paternal Grandmother Heart Attack Paternal Grandfather Breast Cancer Maternal Aunt other (endometriosis) Maternal Aunt SOCIAL HISTORY Social History Tobacco Use Smoking status: Never Smokeless tobacco: Never Vaping Use Vaping Use: Never used Substance Use Topics Alcohol use: Yes Comment: social Drug use: Never REVIEW OF SYSTEMS Abdomen: No abdominal pain, nausea, vomiting, diarrhea, or constipation. No bloating, early satiety, indigestion, or increased flatulence. Bladder: No dysuria, gross hematuria, urinary frequency, urinary urgency, or incontinence. Breast: No breast lumps, nipple d/c, overlying skin changes, redness or skin retraction. Allergies and current medication updated:Yes EXAM: BP 110/68 Ht 5' 7" (1.70m) Wt 148 lb (67.1kg) BMI 23.17 kg/(m^2). GENERAL: pleasant, female in no apparent distress HEENT: Normocephalic, atraumatic, mucus membranes moist, and no lesions NECK: Supple, full range of motion, no adenopathy, and thyroid normal DERMATOLOGY: Normal, without lesions, non-icteric, and non-hirsute BREAST: soft, non-tender, symmetric, no dominant mass, normal nipple-areolar complex, no lymphadenopathy, and no nipple discharge ABDOMEN: soft, non-tender, and no masses PELVIC: external genitalia normal, normal Bartholin's glands, urethra, [place]'s glands, no vulvar lesions, no cervical lesions, good vaginal support, physiologic discharge present, normal appearing perineal body and perianal region BIMANUAL: uterus normal size, shape and consistency, no adnexal masses, and non-tender RECTOVAGINAL: deferred. NEURO: alert and oriented x3,exam grossly non-focal EXTREMITIES: normal ASSESSMENT/PLAN: 1) Health maintenance: Pap/HPV up to date. Mammogram; start age 40 Nutrition, exercise and routine health maintenance exams reviewed. Calcium/Vitamin D supplementation information provided. Colon cancer screening: start at age 45 2) Contraception: combined hormonal contraceptives. Contraceptive options reviewed and information provided. 3) STD screening: Declined STD check. 4) Follow up one year or sooner as needed Johanny Noland MD documented in this encounter [facility] 06-21-2024 Telephone encounter Note Annual scheduled 07/02/24 with DM. Patient called in and stated she needs CADEN Burgin refill before that. Requested Prescriptions Pending Prescriptions Disp Refills ALEXUS 28 0.15-0.03 mg per tab [Pharmacy Med Name: ALEXUS-28 TABLET] 112 tablet 0 Sig: TAKE 1 TABLET BY MOUTH EVERY 24 HOURS. TAKE ACTIVE PILLS CONTINUOUSLY, SKIP THE PLACEBO PILLS Anne Marie Garces RN [facility] 06-21-2024 Miscellaneous Notes Annual scheduled 07/02/24 with DM. Patient called in and stated she needs CADEN Alexus refill before that. Requested Prescriptions Pending Prescriptions Disp Refills ALEXUS 28 0.15-0.03 mg per tab [Pharmacy Med Name: ALEXUS-28 TABLET] 112 tablet 0 Sig: TAKE 1 TABLET BY MOUTH EVERY 24 HOURS. TAKE ACTIVE PILLS CONTINUOUSLY, SKIP THE PLACEBO PILLS Anne Marie Garces RN documented in this encounter [facility] 01-16-2024 Miscellaneous Notes Patient called in requesting rx. Last annual with DM 07/02/23. Requested Prescriptions Pending Prescriptions Disp Refills ALEXUS 28 0.15-0.03 mg per tab 112 tablet 1 Sig: Take 1 tablet by mouth every 24 hours. Take active pills continuously, skip the placebo pills Anne Marie Garces RN documented in this encounter [facility] 07-02-2023 History of Present illness Narrative Supervisor Assembling offered: Patient declines. Christophe is a 32 year old who presents for an annual gynecologic exam without complaints. Going to [place] for 2 weeks. Pain with sex. Menses: continous ocps Contraception: combined hormonal contraceptives HPV vaccine: No Last Pap: 07/10/2022 normal HPV: 07/08/2022 negative History of abnormal pap: No Last mammogram: right side- 8-9 yrs ago- benign- fibroadenoma Sexually active: Yes History of STDS: None Patient concerns for STD exposure: No. 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 History Comments: Sexual Activity: Yes; No partner data on record Contraception: Pill PAST MEDICAL HISTORY Diagnosis Date NEGATIVE MEDICAL HISTORY PAST SURGICAL HISTORY Procedure Laterality Date BX OF BREAST; INCISIONAL Right EYE SURGERY HX TONSILLECTOMY & ADENOIDECTOMY <AGE 11 FAMILY HISTORY Problem Relation Age of Onset Skin Cancer Mother Osteoporosis Mother Hyperlipidemia Father Lung Cancer Maternal Grandmother other (scleaderma) Maternal Grandmother other (throat cancer) Maternal Grandfather Skin Cancer Maternal Grandfather other (pacemaker) Paternal Grandmother Heart Attack Paternal Grandfather Breast Cancer Maternal Aunt other (endometriosis) Maternal Aunt SOCIAL HISTORY Social History Tobacco Use Smoking status: Never Smokeless tobacco: Never Vaping Use Vaping Use: Never used Substance Use Topics Alcohol use: Yes Comment: social Drug use: Never REVIEW OF SYSTEMS Abdomen: No abdominal pain, nausea, vomiting, diarrhea, or constipation. No bloating, early satiety, indigestion, or increased flatulence. Bladder: No dysuria, gross hematuria, urinary frequency, urinary urgency, or incontinence. Breast: No breast lumps, nipple d/c, overlying skin changes, redness or skin retraction. Allergies and current medication updated:Yes EXAM: BP 104/60 Ht 5' 7" (1.70m) Wt 143 lb (64.9kg) BMI 22.39 kg/(m^2). GENERAL: pleasant, female in no apparent distress HEENT: Normocephalic, atraumatic, mucus membranes moist, and no lesions NECK: Supple, full range of motion, no adenopathy, and thyroid normal DERMATOLOGY: Normal, without lesions, non-icteric, and non-hirsute BREAST: soft, non-tender, symmetric, no dominant mass, normal nipple-areolar complex, no lymphadenopathy, and no nipple discharge ABDOMEN: soft, non-tender, and no masses PELVIC: external genitalia normal, normal Bartholin's glands, urethra, [place]'s glands, no vulvar lesions, no cervical lesions, good vaginal support, physiologic discharge present, normal appearing perineal body and perianal region BIMANUAL: uterus normal size, shape and consistency, no adnexal masses, and non-tender RECTOVAGINAL: deferred. NEURO: alert and oriented x3,exam grossly non-focal EXTREMITIES: normal ASSESSMENT/PLAN: 1) Health maintenance: Pap/HPV up to date. Mammogram starting age 40. Nutrition, exercise and routine health maintenance exams reviewed. HPV vaccine: discussed, not interested 2) Contraception: combined hormonal contraceptives. Contraceptive options reviewed and information provided. 3) STD screening: Declined STD check. 4) Follow up one year or sooner as needed 5) Pelvic Floor PT reviewed. Coconut oil reviewed for Lubrication. Johanny Noland MD documented in this encounter [facility] 02-03-2023 Miscellaneous Notes Refill request received via [employer]. Patient last seen 07/02/22 for annual exam. Martha Preciado RN documented in this encounter [facility] 12-12-2022 Miscellaneous Notes Done Jose Garcia MD documented in this encounter [facility] 07-02-2022 History of Present illness Narrative Christophe is a 31 year old who presents for an annual gynecologic exam without complaints. Moved back from [place] with . Considering children in next few years- has questions about that- gave paperwork on all of her and family history. Has some occasional right sided pelvic pain. 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 Occasional spotting with orgasm at night Contraception: combined hormonal contraceptives HPV vaccine: Last Pap: normal HPV: N/A History of abnormal pap: No Last mammogram: breast bx - fibroadenoma Sexually active: Yes History of STDS: None Patient concerns for STD exposure: No. 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 History Comments: Sexual Activity: Yes; No partner data on record Contraception: Pill PAST MEDICAL HISTORY Diagnosis Date NEGATIVE MEDICAL HISTORY PAST SURGICAL HISTORY Procedure Laterality Date BX OF BREAST; INCISIONAL Right EYE SURGERY HX TONSILLECTOMY & ADENOIDECTOMY <AGE 11 FAMILY HISTORY Problem Relation Age of Onset Skin Cancer Mother Osteoporosis Mother Hyperlipidemia Father Lung Cancer Maternal Grandmother other (scleaderma) Maternal Grandmother other (throat cancer) Maternal Grandfather Skin Cancer Maternal Grandfather other (pacemaker) Paternal Grandmother Heart Attack Paternal Grandfather Breast Cancer Maternal Aunt other (endometriosis) Maternal Aunt SOCIAL HISTORY Social History Tobacco Use Smoking status: Never Smokeless tobacco: Never Vaping Use Vaping Use: Never used Substance Use Topics Alcohol use: Yes Comment: social Drug use: Never REVIEW OF SYSTEMS Abdomen: No abdominal pain, nausea, vomiting, diarrhea, or constipation. No bloating, early satiety, indigestion, or increased flatulence. Occasional constipation but does well with Magnesium Bladder: No dysuria, gross hematuria, urinary frequency, urinary urgency, or incontinence. Breast: No breast lumps, nipple d/c, overlying skin changes, redness or skin retraction. Allergies and current medication updated:Yes EXAM: BP 100/60 Ht 5' 7.52" (1.72m) Wt 137 lb (62.1kg) BMI 21.13 kg/(m^2). GENERAL: pleasant, female in no apparent distress HEENT: Normocephalic, atraumatic, mucus membranes moist, and no lesions NECK: Supple, full range of motion, no adenopathy, and thyroid normal DERMATOLOGY: Normal, without lesions, non-icteric, and non-hirsute BREAST: soft, non-tender, symmetric, no dominant mass, normal nipple-areolar complex, no lymphadenopathy, and no nipple discharge ABDOMEN: soft, non-tender, and no masses PELVIC: external genitalia normal, normal Bartholin's glands, urethra, [place]'s glands, no vulvar lesions, no cervical lesions, good vaginal support, physiologic discharge present, normal appearing perineal body and perianal region BIMANUAL: uterus normal size, shape and consistency, non-tender, and Right adnexal fullness RECTOVAGINAL: deferred. NEURO: alert and oriented x3,exam grossly non-focal EXTREMITIES: normal ASSESSMENT/PLAN: 1) Health maintenance: Pap done with HPV. Mammogram starting age 40. Nutrition, exercise and routine health maintenance exams reviewed. Calcium/Vitamin D supplementation information provided. 2) Contraception: combined hormonal contraceptives. Contraceptive options reviewed and information provided. 3) STD screening: Declined STD check. 4) Follow up one year or sooner as needed 5) Horizon testing reviewed- pamphlet given- I will review papers she gave me and make any further recommendations. 6) pelvic us Johanny Noland MD Supervisor Assembling offered: Patient declines. documented in this encounter [facility] Evaluation note Diagnosis Encounter for gynecological examination with abnormal finding- Primary Routine gynecological examination Screening for cervical cancer Screening for malignant neoplasm of the cervix Encounter for screening for human papillomavirus (HPV) Special screening examination for human papillomavirus (HPV) Pelvic pain in female Unspecified symptom associated with female genital organs Adnexal fullness Other specified symptom associated with female genital organs [facility] Pelvic pain in female- Primary Unspecified symptom associated with female genital organs [facility] Diagnosis Encounter for gynecological examination (general) (routine) without abnormal findings- Primary Other specified dyspareunia [facility] Encounter for gynecological examination (general) (routine) without abnormal findings- Primary Surveillance for control, oral contraceptives Surveillance of previously prescribed contraceptive pill [facility] Diagnosis Acute appendicitis with localized peritonitis, without perforation, abscess, or gangrene documented in this encounter [facility] Work Phone: Evaluation note* Diagnosis Acute appendicitis with localized peritonitis, without perforation, abscess, or gangrene- Primary documented in this encounter [facility] Work Phone: Evaluation note* Diagnosis Chronic migraine without aura without status migrainosus, not intractable- Primary Constipation, unspecified constipation type Hyponatremia Hyposmolality and/or hyponatremia Screening for hyperlipidemia Screening for lipoid disorders Leukocytosis, unspecified type Vitamin D deficiency History of appendectomy Other postprocedural status documented in this encounter [facility] Work Phone: Evaluation note* Diagnosis Blood in stool- Primary Constipation, unspecified constipation type Chronic migraine without aura without status migrainosus, not intractable documented in this encounter [facility] Work Phone: Evaluation note* Diagnosis Blood in stool- Primary Hyperplastic polyp of transverse colon documented in this encounter [facility] Work Phone: Evaluation note* Diagnosis Chronic constipation- Primary Unspecified constipation Chronic fatigue Other malaise and fatigue Anal skin tag documented in this encounter [facility] Work Phone: Evaluation note* Diagnosis Encounter for gynecological examination (general) (routine) without abnormal findings- Primary Need for prophylactic vaccination/inoculation against viral disease Need for prophylactic vaccination and inoculation against other viral diseases [facility] Constipation, unspecified constipation type Blood in stool documented in this encounter [facility] Work Phone: History of Present illness Narrative* Patient is a 31 y.o. female patient who is here today to establish care. * Patient is originally from the [facility], was living in [place] but came back for her husbands job. [facility] Work Phone: Reason for referral (narrative)* Diagnostic Procedure Only (Routine) - Authorized Specialty Diagnoses / Procedures Referred By Iona t Referred To Contact [facility] Diagnoses Pelvic pain in female Adnexal fullness Procedures PELVIC US WHI US PELVIC NONOBSTETRIC REAL-TIME IMAGE COMPLETE Johanny Fiore MD [address] [place] [address] [facility] [address] [place] [address] Referral ID Status Reason Start Date Expiration Date Visits Requested Visits Authorized [id number] Authorized Auto-Generat ed Referral 07/02/2022 07/02/2023 1 1 [facility] for visit Narrative* Endoscopy (Routine) - Authorized Specialty Diagnoses / Procedures Referred By Contac t Referred To Contact Gastroenterology Diagnoses Constipation, unspecified constipation type Blood in stool Procedures Colonoscopy Diagnostic NE COLONOSCOPY FLX DX W/COLLJ SPEC WHEN PFRMD NE COLONOSCOPY W/BIOPSY SINGLE/MULTIPLE NE COLSC FLX W/RMVL OF TUMOR POLYP LESION SNARE TQ NE COLSC FLX W/REMOVAL LESION BY HOT BX FORCEPS Debbie Mak MD [address] [place] [address] Phone: tel: fax: Referral ID Status Reason Start Date Expiration Date V isits Requested Visits Authorized [id number] Authorized 02/28/2025 02/28/2026 1 1 [facility] Work Phone: Chief Complaint * 31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, 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 * Pt states she is new to the area and needs a new PCP Family History No Family History Records FoundUnknown Family Member Name Dates Details Vitamin D deficiency: Other Status:Active Family history of osteopenia : Other(V17.89, Z82.69) Status:Active Family history of malignant neoplasm of breast: Maternal Aunt(V16.3, Z80.3) Status:Active Family history of lung cance r: Maternal Grandmother(V16.1, Z80.1) Status:Active Family history of scleroderm a: Maternal Grandmother(V19.8, Z82.69) Status:Active Family history of myocardial infarction: Paternal Grandfather(V17.3, Z82.49) Status:Active Family history of hyperlipid emia: Other, Father(V18.19, Z83.438) Status:Active Family history of other spec ified malignant neoplasm: Mother, Other(V16.8, Z80.8) Comments:dx in her 50s; Status:Active Unknown Family Member Name Dates Details Vitamin D deficiency: Other Status:Active Family history of osteopenia : Other(V17.89, Z82.69) Status:Active Family history of malignant neoplasm of breast: Maternal Aunt(V16.3, Z80.3) Status:Active Family history of lung cance r: Maternal Grandmother(V16.1, Z80.1) Status:Active Family history of scleroderm a: Maternal Grandmother(V19.8, Z82.69) Status:Active Family history of myocardial infarction: Paternal Grandfather(V17.3, Z82.49) Status:Active Family history of hyperlipid emia: Other, Father(V18.19, Z83.438) Status:Active Family history of other spec ified malignant neoplasm: Mother, Other(V16.8, Z80.8) Comments:dx in her 50s; Status:Active Summary Purpose Advance Directives No Advanced Directives Records Found Date Activated Date Inactivated Comments 12/29/2024 11:40 PM Question Answer Comments Plan of Care: Code Status Discussion Not Compl eted Decision Maker: Provider Rationale: Patient condition does not warra nt discussion Date Activated Date Inactivated Comments 12/29/2024 11:40 PM Question Answer Comments Plan of Care: Code Status Discussion Not Compl eted Decision Maker: Provider Rationale: Patient condition does not warra nt discussion Additional Source Comments INFORMATION SOURCE (unrecogn ized section and content) DATE CREATED AUTHOR 06/26/2022 [employer] DATE CREATED AUTHOR AUTHOR'S ORGANIZ ATION 07/10/2022 [facility] DATE CREATED AUTHOR AUTHOR'S ORGANIZ ATION 06/28/2023 [facility] DATE CREATED AUTHOR AUTHOR'S ORGANIZ ATION 05/02/2025 [facility] DATE CREATED AUTHOR AUTHOR'S ORGANIZ ATION 06/29/2025 [facility] DATE CREATED AUTHOR AUTHOR'S ORGANIZ ATION 07/01/2025 [facility] DATE CREATED AUTHOR AUTHOR'S ORGANIZ ATION 09/15/2025 [facility] DATE CREATED AUTHOR AUTHOR'S ORGANIZ ATION 09/22/[address] [facility] Source Comments (unrecognize d section and content) In the event this informatio n is protected by the Federal Confidentiality of Alcohol and Drug Abuse Patient Records regulations: The Federal rules restrict any use of the information to criminally investigate or prosecute any alcohol or drug abuse patient.[facility] the event this information is protected by the Federal Confidentiality of Alcohol and Drug Abuse Patient Records regulations: The Federal rules restrict any use of the information to criminally investigate or prosecute any alcohol or drug abuse patient.[facility] the event this information is protected by the Federal Confidentiality of Alcohol and Drug Abuse Patient Records regulations: The Federal rules restrict any use of the information to criminally investigate or prosecute any alcohol or drug abuse patient.[facility] the event this information is protected by the Federal Confidentiality of Alcohol and Drug Abuse Patient Records regulations: The Federal rules restrict any use of the information to criminally investigate or prosecute any alcohol or drug abuse patient.[facility] the event this information is protected by the Federal Confidentiality of Alcohol and Drug Abuse Patient Records regulations: The Federal rules restrict any use of the information to criminally investigate or prosecute any alcohol or drug abuse patient.[facility] the event this information is protected by the Federal Confidentiality of Alcohol and Drug Abuse Patient Records regulations: The Federal rules restrict any use of the information to criminally investigate or prosecute any alcohol or drug abuse patient.[facility] the event this information is protected by the Federal Confidentiality of Alcohol and Drug Abuse Patient Records regulations: The Federal rules restrict any use of the information to criminally investigate or prosecute any alcohol or drug abuse patient.[facility] Center[facility] the event this information is protected by the Federal Confidentiality of Alcohol and Drug Abuse Patient Records regulations: The Federal rules restrict any use of the information to criminally investigate or prosecute any alcohol or drug abuse patient.[facility] Center[facility] the event this information is protected by the Federal Confidentiality of Alcohol and Drug Abuse Patient Records regulations: The Federal rules restrict any use of the information to criminally investigate or prosecute any alcohol or drug abuse patient.[facility] CenterIn the event this information is protected by the Federal Confidentiality of Alcohol and Drug Abuse Patient Records regulations: The Federal rules restrict any use of the information to criminally investigate or prosecute any alcohol or drug abuse patient.[facility] CenterIn the event this information is protected by the Federal Confidentiality of Alcohol and Drug Abuse Patient Records regulations: The Federal rules restrict any use of the information to criminally investigate or prosecute any alcohol or drug abuse patient.[facility] Reason for Visit (unrecogniz ed section and content) Reason Comments Yearly Exam Reason Comments Pelvic Pain Reason Onset Date Comments Refill Request 02/03/2023 Reason Comments Yearly Exam Reason Onset Date Comments Refill Request Refill Request 01/16/2024 Reason Comments Refill Request Reason Comments Abdominal Pain RLQ abd pain since t his morning. Pt just got back from [place] 2 days ago. Reason Comments Post-op Post op #1 lap appen dectomy done 12-30-24. Patient having right lower inguinal sensation described as a strain feeling when bending and sitting. Having no bowel movement or urination problems. Reason Comments New Patient Visit Prior auth for migra ine med + issues after appendectomy Reason Comments Follow-up C/O PERSISTING HEMOR RHOIDS WITH H/O BRBPR. TAKING MIRALAX WHICH HAS HELPED SOME. C/O RLQ PAIN OFF/ON - OFF/ON SINCE APPENDECTOMY DECEMBER 2024. Reason Comments Follow-up F/U COLONOSCOPY. C/O HEMORRHOIDS - PAINFUL AND BLEEDING. Reason Comments Follow-up C/O RECTAL PAIN AND BLEEDING WANTS TO DISCUSS HOW TO GET RID OF HEMORRHOIDS COMPLETELY Reason Onset Date Comments Yearly Exam Gardasil Injection 08/03/2025 Scheduled Active and Recently Administ ered Medications (unrecognized section and content) Medication Order 12/28/2024 12/29/2024 12/30/2024 acetaminophen (Tylenol) tablet 975 mg (COMPLETED) 975 mg, oral, Once, On Ai 12/30/24 at 1245, For 1 dose, Preprocedure, Administer with small amount of water preoperatively., If ordered PRN for pain, nurse is permitted to administer this medication for higher pain scores based on patient preference? Yes 1422 (Given - Provid er: Saira Bucio RN) dexAMETHasone (PF) (Decadron) injection 8 mg (COMPLETED) 8 mg, intravenous, Once, On Ai 12/30/24 at 1245, For 1 dose, Preprocedure 1422 (Given - Provid er: Saira Bucio RN) famotidine (Pepcid) tablet 20 mg(Linked Group 1) 20 mg, oral, 2 times daily, First dose on Fri12/29/24 at 2345 2352 (See Alternative - Provider: Renetta Butler, JIN) 0852 (See Alternative - Provider: Clarence Tapia RN)1200 (MAR Hold - Provider: Automatic Transfer Provider - Reason: Unreviewed Transfer Orders)2100 (Dose Auto Held - Provider: Automatic Transfer Provider) famotidine PF (Pepcid) injection 20 mg(Linked Group 1) 20 mg, intravenous, Administer over 2 Minutes, 2 times daily, First dose on Fri12/29/24 at 2345, Give if unable to take by mouth or feeding tube. 2352 (Given - Provider: Renetta Butler RN) 0852 (Given - Provider: Clarence Tapia, RN)1200 (JAN Hold - Provider: Automatic Transfer Provider - Reason: Unreviewed Transfer Orders)2100 (Dose Auto Held - Provider: Automatic Transfer Provider) ibuprofen tablet 600 mg 600 mg, oral, Every 6 hours, First dose on Fri12/29/24 at 2345, May administer with food to reduce GI upset., If ordered PRN for pain, nurse is permitted to administer this medication for higher pain scores based on patient preference? Yes 2353 (Given - Provider: Renetta Butler RN) 0603 (Given - Provider: Renetta Butler RN)1136 (Not Given - Provider: Clarence Tapia RN - Reason: NPO)1200 (JAN Hold - Provider: Automatic Transfer Provider - Reason: Unreviewed Transfer Orders)1745 (Dose Auto Held - Provider: Automatic Transfer Provider)2345 (Dose Auto Held - Provider: Automatic Transfer Provider) iohexol (OMNIPaque) 350 mg iodine/mL solution 68 mL (COMPLETED) 68 mL, intravenous, Once in imaging, Starting on Fri12/29/24 at 2217, For 1 dose 221 (Given - Provider: Toby Shoemaker) ondansetron (Zofran) injection 4 mg (COMPLETED) 4 mg, intravenous, Once, On Ai 12/30/24 at 1245, For 1 dose, Preprocedure, When administering via IV Push, administer over 3-5 minutes. 1423 (Given - Provid er: Saira Bucio RN) piperacillin-tazobactam (Zosyn) 4.5 g in dextrose (iso) IV 100 mL (COMPLETED) 4.5 g, intravenous, Administer over 0.5 Hours, Once, On Fri12/29/24 at 2315, For 1 dose, premix bag, Dosing of this medication varies based on severity of illness. Does this patient have sepsis or concern for sepsis (probable or documented infection plus systemic manifestations of infection)? No, Suspected Indication (Select all that apply): Abdominal Infection, Type of Therapy: Empiric, Type of infection: Community-Acquired, Indications: Abdominal Infection 2315 (New Bag - Provider: Renetta Butler RN)2344 (Stopped - Provider: Renetta Butler RN) piperacillin-tazobactam (Zosyn) 4.5 g in dextrose (iso) IV 100 mL 4.5 g, intravenous, Administer over 0.5 Hours, Every 6 hours, First dose on Ai 12/30/24 at 0600, premix bag, Dosing of this medication varies based on severity of illness. Does this patient have sepsis or concern for sepsis (probable or documented infection plus systemic manifestations of infection)? No, Suspected Indication (Select all that apply): Abdominal Infection, Type of Therapy: Definitive, No Cultures, Type of infection: Community-Acquired, Indications: Abdominal Infection 0603 (New Bag - Provider: Renetta Butler RN)0634 (Stopped - Provider: Sandip Bynum RN)1135 (New Bag - Provider: Clarence Tapia, JIN)1200 (MAR Hold - Provider: Automatic Transfer Provider - Reason: Unreviewed Transfer Orders)1205 (Due: Stopped - Provider: Clarence Tapia RN)1800 (Dose Auto Held - Provider: Automatic Transfer Provider) sodium chloride 0.9 % bolus 1,000 mL (COMPLETED) 1,000 mL, intravenous, at 999 mL/hr, Administer over 1 Hours, Once, On Fri12/29/24 at 2045, For 1 dose 2101 (New Bag - Provider: Renetta Butler RN)2132 (Stopped - Provider: Renetta Butler RN) Continuous Medication Order 12/28/2024 12/29/2024 12/30/2024 lactated Ringer's infusion 100 mL/hr, intravenous, Continuous, Starting on 12/29/24 at 2345, For 1 day, May hang after current bag completed 2356 (New Bag - Provider: Renetta Butler RN) 1012 (New Bag - Provider: Clarence Tapia RN)1529 (Continued by Anesthesia - Provider: Sheldon Landrum MD)1554 (Anesthesia Volume Adjustment - Provider: Sheldon Landrum MD)1618 (Paused - Provider: Sheldon Landrum MD - Comment: Switch to gravity)1619 (Restarted - Provider: Sheldon Landrum MD)1840 (Stopped - Provider: Saira Bucio RN) lactated Ringer's infusion 100 mL/hr, intravenous, Continuous, Starting on Ai 12/30/24 at 1715, For 1 day, Recovery (only) 1715 (Due) PRN Medication Order 12/28/2024 12/29/2024 12/30/2024 BUPivacaine HCl (Marcaine) 0.25 % (2.5 mg/mL) injection (CANCELED) As needed, Starting on Ai 12/30/24 at 1620, Intraprocedure 1620 (Given - Provid er: Kelly Yang MD) labetaloL (Normodyne,Trandate) injection 5 mg 5 mg, intravenous, Administer over 1 Minutes, Once as needed, systolic blood pressure greater than 180 mmHg, dystolic blood pressure greater than 100 mmHg and heart rate greater than 60 BPM, Starting on Ai 12/30/24 at 1646, For 1 dose, Recovery (only) morphine injection 2 mg 2 mg, intravenous, Every 5 min PRN, pain moderate (4-6), first line, Starting on Ai 12/30/24 at 1646, Recovery (only), Max total of 20 mg regardless of dose. 1713 (Given - Provid er: Saira Bucio RN) morphine injection 4 mg 4 mg, intravenous, Every 5 min PRN, pain severe (7-10), first line, Starting on Ai 12/30/24 at 1646, Recovery (only), Max total of 20 mg regardless of dose. ondansetron (Zofran) injection 4 mg(Linked Group 2) 4 mg, intravenous, Every 8 hours PRN, nausea/vomiting, first line, Starting on Fri12/29/24 at 2340, 1st Line. Give IV if patient is unable to take orally. If inadequate response within 60 minutes, proceed to next-line agent for same PRN reason or contact provider if no further options ordered. When administering via IV Push, administer over 3-5 minutes. 1200 (MAR Hold - Pro vider: Automatic Transfer Provider - Reason: Unreviewed Transfer Orders) ondansetron (Zofran) injection 4 mg (COMPLETED) 4 mg, intravenous, Once as needed, nausea/vomiting, first line, Starting on Ai 12/30/24 at 1646, For 1 dose, Recovery (only), When administering via IV Push, administer over 3-5 minutes. 1743 (Given - Provid er: Saira Bucio RN) ondansetron ODT (Zofran-ODT) disintegrating tablet 4 mg(Linked Group 2) 4 mg, oral, Every 8 hours PRN, nausea/vomiting, first line, Starting on Fri12/29/24 at 2340, 1st Line. Use oral route first, if possible. If inadequate response within 60 minutes, proceed to next-line agent for same PRN reason or contact provider if no further options ordered. 1200 (MAR Hold - Pro vider: Automatic Transfer Provider - Reason: Unreviewed Transfer Orders) oxyCODONE (Roxicodone) immediate release tablet 5 mg 5 mg, oral, Every 4 hours PRN, pain mild (1-3), first line, Starting on Ai 12/30/24 at 1646, Recovery (only), When able to take oral medications., If ordered PRN for pain, nurse is permitted to administer this medication for higher pain scores based on patient preference? Yes promethazine (Phenergan) 6.25 mg in sodium chloride 0.9% 50 mL IV (COMPLETED) 6.25 mg, intravenous, Administer over 15 Minutes, Once as needed, Nausea/vomiting, second line, Starting on Ai 12/30/24 at 1646, For 1 dose, Recovery (only) 1822 (New Bag - Prov ider: Siara Bucio RN)1837 (Stopped - Provider: Saira Bucio RN) No Frequency Medication Order 12/28/2024 12/29/2024 12/30/2024 sodium chloride (PF) 0.9% solution - [employer] Override Pull (COMPLETED) Starting on Ai 12/30/24 at 0849, For 1 dose, Created by cabinet override 0853 (Given - Provid er: Clarence Tapia RN) Linked Groups Order Group 1: famotidine (Pepcid) tablet 20 mgJump to med 20 mg, oral, 2 times daily, First dose on Fri12/29/24 at 2345 Or famotidine PF (Pepcid) injection 20 mgJump to med 20 mg, intravenous, Administer over 2 Minutes, 2 times daily, First dose on Fri12/29/24 at 2345, Give if unable to take by mouth or feeding tube. Group 2: ondansetron ODT (Zofran-ODT) disintegrating tablet 4 mgJump to med 4 mg, oral, Every 8 hours PRN, nausea/vomiting, first line, Starting on Fri12/29/24 at 2340, 1st Line. Use oral route first, if possible. If inadequate response within 60 minutes, proceed to next-line agent for same PRN reason or contact provider if no further options ordered. Or ondansetron (Zofran) injection 4 mgJump to med 4 mg, intravenous, Every 8 hours PRN, nausea/vomiting, first line, Starting on Fri12/29/24 at 2340, 1st Line. Give IV if patient is unable to take orally. If inadequate response within 60 minutes, proceed to next-line agent for same PRN reason or contact provider if no further options ordered. When administering via IV Push, administer over 3-5 minutes. Care Teams (unrecognized sec tion and content) Denture Technician Relationship Specialty Start Date End Date Christophe Marinelli DO [address] [place] [address] PCP - General 06/25/22 Denture Technician Relationship Specialty Start Date End Date Christophe Marinelli DO [address] [place] [address] PCP - General 06/25/22 Denture Technician Relationship Specialty Start Date End Date Debbie Mak MD [address] [place] [address] PCP - General Internal Medicine 02/02/25 Denture Technician Relationship Specialty Start Date End Date Debbie Mak MD [address] [place] [address] PCP - General Internal Medicine 02/02/25 Denture Technician Relationship Specialty Start Date End Date Debbie Mak MD [address] [place] [address] PCP - General Internal Medicine 02/02/25 Denture Technician Relationship Specialty Start Date End Date Debbie Mak MD [address] [place] [address] PCP - General Internal Medicine 02/02/25 Denture Technician Relationship Specialty Start Date End Date Debbie Mak MD [address] [place] [address] PCP - General Internal Medicine 02/02/25 FOR RECORDS PERTAINING TO PATIENTS WHO ARE OR HAVE BEEN ENROLLED IN A CHEMICAL DEPENDENCY/SUBSTANCEABUSE PROGRAM, SOME INFORMATION MAY BE OMITTED. This clinical summary was aggregated from multiple sources. Caution should be exercised in using it in the provision of clinical care. This summary normalizes information from multiple sources, and as a consequence, information in this document may materially change the coding, format and clinical context of patient data. In addition, data may be omitted in some cases. CLINICAL DECISIONS SHOULD BE BASED ON THE PRIMARY CLINICAL RECORDS. [facility] [employer] provides no warranty or guarantee of the accuracy or completeness of information in this document.
[2025-09-22] MEDS: Lactated Ringers 1,000 ML 15 ML IV (06:24)
[2025-09-22 06:26] LABS: Internal QC Validated? YES +Cl - CLEAR BKGD; Pregnancy, Urine Negative Negative; Record Kit Lot#,Urine Preg 0000980607
[2025-09-22 06:45] LABS: Hematocrit 39.3 % (37-47); Hemoglobin 14.1 g/dL (12.0-15.0); Mean Corp Hgb Conc 35.9 g/dL (32-36); Mean Corpuscular Volume 89.5 fL (81-99); Mean Platelet Vol. 8.4 fl (6.2-12.0); Platelet Count 247 K/mm3 (150-450); RBC Distribution Width CV 11.5 % (11.6-14.6); RBC Distribution Width SD 37.3 fl (35.1-43.9); Red Blood Count 4.39 M/mm3 (4.2-5.4); White Blood Count 4.0 K/mm3 (4.4-11.0)
--- NOTE | 2025-09-22 06:54 | PRE.ANES_ITS ---
ASA Classification* ASA Classification ASA Classification: 2 (PONV, migraines) Assessment & Plan Anesthesia* Anesthesia Assessment Anesthesia Assessment: Discussed sedation and/or anesthesia options, risks, benefits, and alternatives with patient/parents/legal guardian/POA. Questions invited. The patient/parents/legal guardian/POA seems to understand and agrees to proceed with anesthesia plan. Reviewed the physical assessment, medical history, allergy history and patient home medications list prior to surgery/procedure/anesthetic and documented any changes. Performed airway and anesthesia risk assessments. Patient reports that after her last anesthetic, the patient had numbness in the middle third of her tongue that lasted for approx. 1 month. Unclear etiology. Anesthesia Type Anesthesia Type: General (TIVA for PONV) History Source History Obtained from:: Patient and Chart Anesthesia Focused Assessment* Temperature: 99 F Pulse Rate: 98 Blood Pressure: 118/79 Respiratory Rate: 16 Pulse Ox: 99 Oxygen Delivery Method: Room Air Airway Assessment Mouth opens: >3 cm Mallampati Score: II Teeth Condition: Intact Neck Range of motion (ROM): Full ROM Labs Anesthesia Preop lab: CBC WBC, (4.4-11.0) 4.0 K/mm3 L Today, 06:25 RBC, (4.2-5.4) 4.39 M/mm3 Today, 06:25 Hgb, (12.0-15.0) 14.1 g/dL Today, 06:25 Hct, (37-47) 39.3 % Today, 06:25 Plt Count, (150-450) 247 K/mm3 Today, 06:25 CHEMISTRY COAG Urine Test Negative Negative Today, 06:15 Pre-Assessment Diagnosis/Proposed Procedure Planned Operative Procedure(s): laparoscopic bilateral salpingectomy Anesthesia History Anesthesia History - mult au matic operator: Anesthesia History - mult au matic operator Hx Hospitalization Yes: LAP APPY 12/202409/15/25 11:22 [facility] Any Problems With Anesthesia Yes: PONV/ NUMBNESS TO 09/15/25 11:22 TOUNGE FOR 1 MONTH AFTER LAP APPY 12/30/24 Cholinesterase deficiency No 09/15/25 11:22 You/Your Family Experience No 09/15/25 11:22 fever (hyperthermia) with Relationship Recent Exposure to Contagious No 09/22/25 06:21 Disease Does patient have nerve No 09/15/25 11:22 stimulator Patient instructed to have device shut off --Does patient have Pacemaker No 09/22/25 06:21 or ICD? When Was Last Pacemaker Check QUESTION #4 FULL TEXT: You/Your Family Experience fever (hyperthermia) with Anesthesia Last Oral Intake Last Oral intake: Last Oral Intake NPO since 20:00 09/22/25 06:21 Meds taken in AM with sips of water? Meds patient instructed to take am of surgery PONV PONV - mult au matic operator: PONV - mult au matic operator Female Yes 09/15/25 11:22 HX of Motion Sickness Yes 09/15/25 11:22 HX of N/V After Surgery Yes 09/15/25 11:22 Non-Smoker Yes 09/15/25 11:22 Duration of Surgery greater Yes 09/15/25 11:22 than 60 minutes Number of Risk Factors 5 09/15/25 11:22 PONV Score Severe Risk 09/15/25 11:22 Height & Weight Height & Weight: Anesthesia: Height & Weight Height 5 ft 7 in 09/22/25 06:21 Weight: 67.2 kg 09/22/25 06:21 Body Mass Index (BMI) 23.2 09/22/25 06:21 Respiratory Assessment Respiratory Assessment - mult au matic operator: Respiratory Tract Infection Hx - mult au matic operator Hx Respiratory Tract Infection No 09/15/25 11:22 STOP Sleep Apnea STOP Sleep Apnea - mult au matic operator: STOP Sleep Apnea - mult au matic operator Hx Hypertension No 09/15/25 11:22 Hx Sleep Apnea No 09/15/25 11:22 CPAP BIPAP Do you snore loudly (louder No 09/15/25 11:22 than talking or can be heard Do you often feel tired/ No 09/15/25 11:22 fatigued/ sleepy during daytime? Has anyone observed you stop No 09/15/25 11:22 breathing during sleep? STOP Results Negative 09/15/25 11:22 QUESTION #5 FULL TEXT : Do you snore loudly (louder than talking or can be heard through closed doors)? 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 Specify any problems Hx of Preganancy in last 3 No 09/15/25 11:22 Months Nurse Filling Out Transfusion [id number] 09/15/25 11:22 & Questions: Date: 09/15/25 09/15/25 11:22 Time: 11:27 09/15/25 11:22 Patient unable to answer at this time (ie. confused, unrespo /Reproduction History /Reproductive History - mult au matic operator: /Reproductive Hx- mult au matic operator Hx Now No 09/15/25 11:22 Gestational Age (in weeks): EDC: Hx Hx Para Hx Section SAB No 09/15/25 11:22 Does the father of the baby or his family experience fever w Father of the baby Malignant Hypertension history comment Active Medications Active Medications: Current Medications Generic Name Dose Route Start Last Admin Trade Name Freq PRN Reason Stop Dose Admin Lactated Ringer's 1,000 mls @ 15 mls/hr 09/22/25 06:15 09/22/25 06:24 IV 15 mls/hr .Q48H GABRIELLE Administration PFSH Medical History Alcohol use Non-smoker Migraine headache Home Medications Medication Instructions Recorded Last Taken Type fexofenadine 180 mg tablet 180 mg PO DAILY 09/15/25 Un known History (Shireen Allergy) ibuprofen 200 mg tablet (Advil) 400 mg PO Q8H PRN pain 09/15/25 Unknown History levonorgestrel 0.15 mg-ethinyl 1 tab PO DAILY 09/15/25 Unknown History estradiol 0.03 mg tablet (Alexus 28) magnesium 250 mg tablet 250 mg PO QHS 09/15/25 Unkno wn History multivitamin (Daily Value tablet) 1 tab PO DAILY 09/15 Unknown History polyethylene glycol 3350 17 17 g PO DAILY PRN PRN cons tipation 09/15/25 Unknown History gram/dose oral powder (ClearLax) ubrogepant 100 mg tablet (Ubrelvy) 100 mg PO PRN PRN m igraine 09/15/25 Unknown History Allergy/AdvReac Type Severity Reaction Status Date / Time Penicillins (PCN) AdvReac UNSURE Verified 09/22/25 06:21 Surgical History H/O wisdom tooth extraction History of tonsillectomy History of eye surgery History of laparoscopic appendectomy History of colonoscopy Social History Smoking Status: Never smoker Review of Systems (Anesthesia) ROS Narrative System reviewed and no additional complaints, except as documented.
--- NOTE | 2025-09-22 07:23 | PCM.DC ---
Discharge Instructions DC O2, CPAP, BIPAP needs Home O2 Discharge instructions: No Dressing / Incision May resume sexual activity in: 1-2 weeks Lifting Restrictions: 20-25 lbs Dressing / Incision Call your doctor if your incision/area has: Continuous Slow Oozing, Sudden Increased Bleeding, Increased Pain/ Swelling, Increased Redness, Foul Smelling Discharge and Swelling at the incision site Call your doctor if you observe: Fever of 101 or Higher, Inability to urinate, Inability to have a bowel movement, Using more than 1 pad per hour and Uncontrolled pain Additional Dressing/Incision Instructions:: You have skin glue over your incision sites, do not pick off. You may shower and let the soap and water run over the incision sites and dab dry. Follow Up Care Please Follow Up With: Johanny Noland MD When: I will call you with pathology results in 1-2 weeks, if you need an appointment to be seen please call [phone] Test Results: Test results from this visit will be discussed in further detail at your follow-up appointment, if applicable. Discharge Plan Admission Attending Provider: Johanny Noland Primary Care Provider: Debbie Mak Instructions Print Language: Colombian Discharge Orders/Prescriptions Prescriptions: No Action levonorgestrel-ethinyl estrad [[place] 28] 0.15-0.03 mg tablet 1 tab PO DAILY magnesium 250 mg tablet 250 mg PO QHS multivitamin [Daily Value] Tablet 1 tab PO DAILY fexofenadine [Shireen Allergy] 180 mg tablet 180 mg PO DAILY Ubrelvy 100 mg tablet 100 mg PO PRN PRN (Reason: migraine) polyethylene glycol 3350 [ClearLax] 17 gram/dose powder 17 g PO DAILY PRN PRN (Reason: constipation) ibuprofen [Advil] 200 mg tablet 400 mg PO Q8H PRN (Reason: pain) Disposition Disposition (needs filled in before D/C Order can be placed): Home, Self Care
--- NOTE | 2025-09-22 07:25 | PCM.OPRPT ---
Operative Report (Standard) Operative Information Date of Procedure: 09/22/25 Pre-Operative Diagnosis: Sterilization request Post-Operative Diagnosis: same Surgery/Procedure Performed: Laparoscopic bilateral salpingectomy automation qtp tester: Yes Flight Reservations Manager: Tai Solitario Tasks completed by preschool assistant director: Closing and Other (camera manipulation, retraction of tissue) Additional glass ribbon machine operator assistant?: No Type of Anesthesia: General and Local RN Documented Start/Stop Times: Operation Date: 09/22/25 07:30 Case Time Into Pre-Op 09/22/25 06:01 Out of Pre-Op 09/22/25 07:23 Procedure Start Time: 07:40 Procedure Stop Time: 08:01 Select all DRAINS/GRAFTS/IMPLANTS that apply: None Estimated Blood Loss: 5cc Fluids Replaced: 1000 Specimen collected: Yes Description of specimen(s) removed: bilateral fallopian tubes Description of surgery: After informed consent was obtained patient was taken to the operating room she was placed in supine position she was given anesthesia. She was then placed in the [facility] stirrups and she was prepped and draped in normal sterile fashion. Bladder was drained prior to the start of procedure. At this time attention was turned to the vaginal portion where weighted speculum placed at posterior fornix vagina single-tooth tenaculum was used to gently grasp the internal the cervix. uterus was gently sounded to approximately cm. Uterine manipulator was placed without difficulty. Legs then placed in parallel with the abdomen the tenaculum and the weighted speculum were removed. 2 towel clamps were placed at level of umbilicus. Marcaine was injected infraumbilical and a small incision was made. The 5 mm trocar was placed under direct visualization. CO2 gas was used to insufflate the intra-abdominal cavity. Upon inspection no gross abnormalities appreciated- the uterus tubes and ovaries appeared to be normal. At this time then the LLQ and RLQ ports were placed First Marcaine was injected and small incision was made a knife and the 5 mm trocars were placed. At this time then tubes were traced back to the fimbriated ends. Enseal was used to coagulate and ligate along mesosalpinx bilaterally until tubes removed completely. Good hemostasis was appreciated. At this time procedure was deemed complete successful. The gas was desufflated on from the intra-abdominal cavity. The trochars were removed. Skin was closed using 4-0 Monocryl in a subcutaneous fashion. Dermabond glue was placed. Instrument lap and needle counts were correct ×2. The uterine manipulator was removed. Vaginal sweep was performed it was negative. There were no complications anticipated normal postoperative course for this patient. Surgical Findings: normal tubes and ovaries. endometriosis on poserior culdesac andn uterosacral ligaments. Complications Complications: No Admit VTE Documentation VTE Present on Admission: Yes VTE Mechan Device Prophylaxis: SCD's VTE Pharm Prophylaxis ordered?: No Reason prophylaxis not ordered: Treatment Not Indicated
[2025-09-22] MEDS: Lactated Ringers 1,000 ML 1000 ML IV (07:26)
[2025-09-22] MEDS: Midazolam 2 MG/2 ML Syringe IV (07:28)
[2025-09-22] MEDS: Lidocaine 1% (5 ml sdv) 5 ML Vial IV (07:30)
[2025-09-22] MEDS: fentaNYL 100 MCG/2 ML Ampul IV (07:30)
--- NOTE | 2025-09-22 07:30 | FALS_PTH ---
PATIENT: CHRISTOPHE RICH LOC: [facility] [place] U#:[id number] AGE/SX: 34/F ROOM: RE09/22/[address]: Dr. Johanny Noland, MDDOB: 1990 BED: DIS: 09/22/2025 SPEC #: [id number] RECD: 09/22/25 08:37 STATUS: [place] DARIN #: [id number] GURINDER: 09/22/25 07:[address]: Johanny Noland DEPT: SURGICAL PATHOLOGY RECD BY: Johnnie Sanchez ENTERED: 09/22/25 11:43 SP TYPE: FALL TUBES OTHR DR: Dr. Debbie Mak MD Tissues: A - Fallopian tube Procedures: Surgery Specimen Level II HEADER OPERATION: Laparoscopic bilateral salpingectomy PRE-OP DIAGNOSIS: Desires sterilization TISSUE SUBMITTED: A- Bilateral fallopian tubes MICROSCOPIC DIAGNOSIS A. Fallopian tubes, laparoscopic bilateral salpingectomy: - No specific pathologic change. - Complete luminal cross-section confirmed x2. MICROSCOPIC DESCRIPTION Slides are reviewed. GROSS DESCRIPTION A. Received in formalin labeled with the patient's name and date of . Designated as "bilateral fallopian tubes" are 2 purple-momin red, fimbriated fallopian tubes devoid of orientation, 5.7 x 0.5 cm and 5.5 x 0.7 cm. A few paratubal cysts are present, 0.1 cm in greatest dimension. Press Setter sections are submitted in 2 cassettes. MI 09/22/2025 CPT:[id number]
[2025-09-22] MEDS: Ketorolac 30 MG/ML Syringe IV (07:57)
--- NOTE | 2025-09-22 08:22 | PCM.POST.ANE ---
Anesthesia: Postop Eval I Current Vital Signs Temperature: 98.3 F Pulse Rate: 77 Blood Pressure: 98/80 Respiratory Rate: 16 Pulse Ox: 99 Oxygen Delivery Method: Room Air Assessment Airway patent: Yes Spontaneous unlabored respirations: Yes Mental status: Awake and Calm nausea: No Vomiting: No Anesthesia Complication: No Fluid Hydration Crystalloid volume administer (ml): 1,000 Total IV fluid infused: 1,000 Progress Note Anesthesia document: Postop Eval 1 completed: Yes
--- NOTE | 2025-09-22 09:30 | POSTOPAN2_ITS ---
Anesthesia Postop Eval I Sum Postop Eval Completion status Anesthesia document: Postop Eval 1 completed: Yes Anesthesia Postop Eval I Summary Anesthesia Postop Eval I Summary: Anesthesia Postop Eval I: Assessment Summary Airway patent Yes 09/22/25 08:22 COUNTER [email or web address] Spontaneous unlabored Yes 09/22/25 08:22 COUNTER [email or web address] respirations Mental status Awake,Calm 09/22/25 08:22 COUNTER [email or web address] nausea No 09/22/25 08:22 COUNTER [email or web address] Vomiting No 09/22/25 08:22 COUNTER [email or web address] Anesthesia Postop Eval I: Fluid Summary Crystalloid volume administer 1,000 09/22/25 08:22 COUNTER [email or web address] (ml) Colloids volume administered ( ml) Blood Product volume administered (ml) Total IV fluid infused 1,000 09/22/25 08:22 COUNTER [email or web address] Anesthesia Postop Eval I: Summary Notes Anesthesia Complication No 09/22/25 08:22 COUNTER [email or web address] Anesthesia Complication Comment: Post-operative progress note Anesthesia: Postop Eval II Evaluation Mental status: Awake Pain Level: 0 nausea: No Vomiting: No Complications Anesthesia Complication: No
--- NOTE | 2025-09-22 09:30 | PCM.POSTANE2 ---
Anesthesia Postop Eval I Sum Postop Eval Completion status Anesthesia document: Postop Eval 1 completed: Yes Anesthesia Postop Eval I Summary Anesthesia Postop Eval I Summary: Anesthesia Postop Eval I: Assessment Summary Airway patent Yes 09/22/25 08:22 REPAIRER SHOE [email or web address] Spontaneous unlabored Yes 09/22/25 08:22 REPAIRER SHOE [email or web address] respirations Mental status Awake,Calm 09/22/25 08:22 REPAIRER SHOE [email or web address] nausea No 09/22/25 08:22 REPAIRER SHOE [email or web address] Vomiting No 09/22/25 08:22 REPAIRER SHOE [email or web address] Anesthesia Postop Eval I: Fluid Summary Crystalloid volume administer 1,000 09/22/25 08:22 REPAIRER SHOE [email or web address] (ml) Colloids volume administered ( ml) Blood Product volume administered (ml) Total IV fluid infused 1,000 09/22/25 08:22 REPAIRER SHOE [email or web address] Anesthesia Postop Eval I: Summary Notes Anesthesia Complication No 09/22/25 08:22 REPAIRER SHOE [email or web address] Anesthesia Complication Comment: Post-operative progress note Anesthesia: Postop Eval II Evaluation Mental status: Awake Pain Level: 0 nausea: No Vomiting: No Complications Anesthesia Complication: No
== END 2025-09-22 09:55 | disposition home or self-care (01) ==
LOC: SDC 05:47 → AC 05:48
PROVIDERS: PCP Internal Medicine; Referring Provider Obstetrics & Gynecology; Visit Provider Obstetrics & Gynecology
DX: Z30.2 Encounter for sterilization (principal); N80.329 Endometriosis of the posterior cul-de-sac, unspecified depth; N80.3C9 Endometriosis of the uterosacral ligament(s), unspecified side, unspecified depth
CPT/HCPCS: 58661; 00840; 81025; 85027; 88302; J2405